=== PATIENT | male | born 1945 | race Caucasian/White ===

== ENCOUNTER 2017-08-26 10:04 | Outpatient (CLI) | payer MEDICARE, OTHER ==
--- OUTSIDE RECORDS SUMMARY | 2017-08-26 10:06 | XMS | Clinical Summary ---
:1945 Author Organization [facility] Address [address] [place] [address] Phone Care Team Providers Name Role Phone Provider, Unknown Primary Care Provider Unavailable Allergies No Known Allergies Current Medications Prescription Sig. Disp. Refills Start Date End Date Status metoprolol succinate XL Take 75 mg by mouth Active (TOPROL-XL) 50 MG 24 hr daily. tablet RITUXIMAB (RITUXAN IV) Infuse into a Active venous catheter every 4 (four) months. dexamethasone (DECADRON) Take 0.75 mg by Active 0.5 MG tablet mouth daily. hydroxychloroquine Take by mouth Active (PLAQUENIL) 200 mg tablet daily. clopidogrel (PLAVIX) 75 Take 75 mg by mouth Active mg tablet daily. irbesartan (AVAPRO) 300 Take 300 mg by Active MG tablet mouth nightly. aspirin (ECOTRIN) 81 MG Take 81 mg by mouth Active enteric coated tablet daily. ranitidine (ZANTAC) 150 Take 150 mg by Active MG tablet mouth 2 (two) times a day. oxybutynin (DITROPAN) 5 Take 5 mg by mouth Active MG tablet daily. folic acid (FOLVITE) 1 MG Take 1 mg by mouth Active tablet daily. multivitamin with Take 1 tablet by Active minerals tablet mouth daily. cholecalciferol, vitamin Take 2,000 Units by Active D3, (VITAMIN D3) 2,000 mouth 2 (two) times unit capsule capsule a day. krill oil 500 mg capsule Take by mouth Active daily. cyanocobalamin 1000 MCG Take 1,000 mcg by Active tablet mouth daily. cholecalciferol, vitamin Take 1,000 Units by Active D3, (VITAMIN D3) 1,000 mouth daily. unit tablet torsemide (DEMADEX) 100 Take 100 mg by Active MG tablet mouth daily. furosemide (LASIX) 40 mg Take 40 mg by mouth Active tablet 3 (three) times a day. potassium chloride Take 10 mEq by Active (KLOR-CON M10) 10 MEQ CR mouth 2 (two) times tablet a day. montelukast (SINGULAIR) Take 10 mg by mouth Active 10 mg tablet nightly. budesonide (PULMICORT) Take 0.5 mg by Active 0.5 mg/2 mL nebulizer nebulization once solution daily. albuterol (PROAIR Inhale 2 puffs Active HFA,PROVENTIL every 6 (six) hours HFA,VENTOLIN HFA) 90 as needed for mcg/actuation inhaler wheezing. Active Problems Problem Noted Date Atrial fibrillation 03/18/2017 Obesity 03/18/2017 Essential hypertension 03/18/2017 COPD (chronic obstructive pulmonary disease) 03/18/2017 Acute on chronic diastolic congestive heart failure 03/18/2017 NILESH (obstructive sleep apnea) 03/18/2017 Coronary artery disease involving [place] coronary artery of [place] heart 03/18 History of coronary artery stent placement 03/18/2017 S/P coronary angiogram 03/18/2017 Chronic kidney disease, stage III (moderate) 03/18/2017 Anemia of chronic disease 03/18/2017 Arterial stent thrombosis Arterial stent thrombosis Family History Medical History Relation Name Comments Emphysema Father Kidney disease Mother Relation Name Status Comments Father Mother Social History Tobacco Use Types Packs/Day Years Used Date Never Smoker Alcohol Use Drinks/Week oz/Week Comments Yes occasional Sex Assigned at Date Recorded Not on file Last Filed Vital Signs Vital Sign Reading Time Taken Blood Pressure 140/76 03/18/2017 2:00 PM CDT Pulse 69 03/18/2017 2:00 PM CDT Temperature - - Respiratory Rate - - Oxygen Saturation - - Inhaled Oxygen Concentration - - Weight 120 kg (264 lb) 03/18/2017 2:00 PM CDT Height 180.3 cm (5' 11") 03/18/2017 2:00 PM CDT Body Mass Index 36.82 03/18/2017 2:00 PM CDT Plan of Treatment Health Maintenance Due Date Last Done Comments COLONOSCOPY 1995 ZOSTER VACCINE 2005 PNEUMOCOCCAL POLYSACCHARIDE VACCINE AGE 65 AND OVER 2010 PNEUMOCOCCAL-13 2010 INFLUENZA VACCINE 06/22/2017 Results Not on filefrom Last 3 Months Insurance Payer Benefit Plan / Group Subscriber ID Type Phone Address MEDICARE MEDICARE PART A AND B [id number] Medicare [place], [place] AETNA AETNA [facility] INDEMNITY [id number] Indemnity [phone] [id number]
--- NOTE | 2017-08-26 12:01 | CT ---
CT OF THE RIGHT LOWER EXTREMITY WITHOUT IV CONTRAST: INDICATION: A 71-year-old male with a history of multiple falls and intense pain in the right hip. COMPARISON: CT of the chest, abdomen, and pelvis dated 04/10/17 from [facility] and an ultrasound of the right hip dated 04/19/17. FINDINGS: There is a large right iliopsoas bursa present anterior to the right hip joint measuring approximate ly 15.5 x 6.5 cm. There is an additional fluid collection overlying the superior and lateral aspect of the right greater measuring 4.8 x 2.2 cm suspicious for enlarged trochanteric bursa. There is p rominent hypertrophy of the adductor musculature of the right proximal thigh suspicious for a large intramuscular hematoma measuring 10.5 x 4.6 cm. This is primarily centered within the adductor magn us. There are prominent vascular calcifications noted involving the femoral arteries. There is a f at-containing right inguinal hernia. No enlarged lymph nodes are evident. There is a right total h ip prosthesis in place. No definite periprosthetic fracture is evident. There is enthesopathic nawaf nge overlying the lateral aspect of the right greater trochanter. There is moderate degenerative ch jorge of the right SI joint. There is partial visualization of a large cyst involving the inferior p ole of the right kidney measuring 7.2 cm. This is better evaluated on the CT evaluation dated . IMPRESSION: 1. Large intramuscular hematoma primarily centered within the right adductor ginny musculature. R ecommend followup to resolution. A followup CT evaluation with contrast in 6-8 weeks is recommended . 2. Prominent right iliopsoas and trochanteric bursitis. 3. No CT evidence for a periprosthetic fracture. The right total hip arthroplasty projects in the expected position. POS: [facility]
== END 2017-08-26 10:05 | disposition home or self-care (01) ==
LOC: CT 10:04
PROVIDERS: ATTEND Orthopaedic Surgery
DX: R22.42 Localized swelling, mass and lump, left lower limb (principal); M25.551 Pain in right hip; S70.01XA Contusion of right hip, initial encounter; M70.61 Trochanteric bursitis, right hip

== ENCOUNTER 2017-09-03 11:33 | Outpatient (CLI) | payer MEDICARE, OTHER ==
--- NOTE | 2017-09-03 17:59 | ULT ---
ULTRASOUND GUIDED RIGHT ILIOPSOAS BURSA ASPIRATION 09/03/17 INDICATION: Right iliopsoas bursitis, right trochanteric bursitis and right medial thigh hematoma. COMPARISON: CT of the right lower extremity dated 08/26/17. TECHNIQUE: Informed consent was obtained. Preprocedure ultrasound demonstrated a prominent right iliopsoas bur tatiana collection. Site overlying the iliopsoas bursa was prepped and draped in the usual sterile fashi on. Buffered 1% lidocaine was administered overlying subcutaneous tissues. Under ultrasound guidance , an 18 gauge spinal needle was guided down into the collection. The initial attempted aspiration pr chon to be unsuccessful. Within the collection, predominantly over the anterior aspect of the right hip, was thick tenacious type fluid that had minimal return. Attention was paid for the collection t hat was slightly closer to the femoral canal that appeared more liquid in form. The 18 gauge spinal needle was guided into this collection and there was return of 20 mL of a cloudy type bursal fluid. Patient tolerated the procedure without difficulty. After the procedure, the patient was complaining of some difficulty in flexing at the hip. The patient had full sensation on the anterior aspect of the hip and was able to extend at the knee utilizing the quad mechanism. The patient likely had a pa rtial block to the right femoral nerve due to the adjacent subcutaneous lidocaine that was administe red. The patient was followed for approximately 1.5 hours in the holding area where the patient had improving strength and hip flexion upon discharge. The aspirate was sent to the Pathology Department for evaluation with gram stain, aerobic and anaerobic cultures. Preprocedure ultrasound was performed of the hematoma suspected within the right adductor musculatur e on the prior CT of the right lower extremity. There was visualization of the prominent hematoma wi thin the right adductor compartment; however, none of it appeared to be liquefied and therefore aspi ration was not performed. A small amount of fluid is seen within the right trochanteric bursa. Major ity of the bursa was filled with synovial hypertrophy. Aspiration was not performed of this bursa. IMPRESSION: 1. Successful right iliopsoas bursal aspiration of 20 mL of cloudy fluid. This was sent to the Pathology Department for evaluation by gram stain, aerobic and anaerobic cultures. 2. Large right intramuscular hematoma within the adductor musculature of the right thigh. This was complex and not significantly liquefied for aspiration. 3. Small amount of fluid was seen within the right trochanteric bursa. POS: [facility]
== END 2017-09-03 11:34 | disposition home or self-care (01) ==
LOC: RAD 11:33
PROVIDERS: ATTEND Orthopaedic Surgery
DX: S80.11XA Contusion of right lower leg, initial encounter (principal)
CPT/HCPCS: 76942; 87070; 87205

== ENCOUNTER 2017-10-21 10:48 | Inpatient (IN) | payer MEDICARE, OTHER ==
[2017-10-21 11:27] LABS: #Basophils 0.1 thou/uL (0.0-0.2); #Eosinphils 0.1 thou/uL (0.0-0.7); #Lymphocytes 0.4 thou/uL (1.20-3.40); #Monocytes 0.7 thou/uL (0.11-0.59); #Neutrophils 7.2 thou/uL (1.40-6.50); %Basophils 1.1 % (0.0-1.0); %Eosinophils 0.9 % (0.0-10.0); %Lymphocytes 4.7 % (21.0-51.0); %Monocytes 7.8 % (0.0-10.0); Hematocrit 34.7 % (42.0-52.0); Mean Platelet Volume 6.1 fL (7.4-10.4); Red Blood Cell (RBC) Count 3.64 mill/uL (4.70-6.10); White Blood Cell (WBC) Count 8.4 thou/uL (4.8-10.8)
[2017-10-21] MEDS ORDERED: Sodium Chloride 0.9% 100 ML ONE (11:31)
[2017-10-21] MEDS ORDERED: Piperacillin/Tazobactam 4.5 GM VIAL ONE (11:31)
[2017-10-21] MEDS ORDERED: Clindamycin/D5W 900 mg/50 ml Premix Bag ONE (11:31)
[2017-10-21 11:40] LABS: ALT (SGPT) 29 U/L (8-55); AST (SGOT) 24 U/L (5-34); Alkaline Phosphatase 74 U/L (40-150); Anion Gap 14 mmol/L (10-20); BUN (Urea Nitrogen) 36 mg/dL (8.4-25.7); Bilirubin, Total 0.7 mg/dL (0.2-1.2); Calc. Creatinine Clearance 0 mL/min (70-130); Calcium 10.8 mg/dL (7.8-10.44); Carbon Dioxide 25 mmol/L (23-31); Chloride 108 mmol/L (98-107); Estimated GFR-MDRD 54; Globulin 2.8 g/dL (2.4-3.5); Protein, Total 6.3 g/dL (5.8-8.1)
[2017-10-21 11:42] LABS: Troponin I 0.098 ng/mL (< 0.028)
--- NOTE | 2017-10-21 12:02 | RAD ---
EXAM: CHEST 2 VIEWS: COMPARISON: 07/01/17. HISTORY: Dyspnea. FINDINGS: Sternotomy wires are identified. There is a right-sided transvenous pacemaker, unchanged in position . Heart is enlarged. The pulmonary vessels are prominent. Patchy interstitial and alveolar opaciti es. Obscuration of the left hemidiaphragm. No pneumothorax. IMPRESSION: Congestive heart failure. POS: [facility]
[2017-10-21] MEDS ORDERED: Furosemide 40 MG/4 ML VIAL ONE (12:20)
[2017-10-21 14:20] LABS: Troponin I 0.073 ng/mL (< 0.028)
[2017-10-21] MEDS ORDERED: Ondansetron HCl/PF 4 MG/2 ML Vial IVP PRN (15:48)
[2017-10-21] MEDS ORDERED: Ondansetron ODT 4 MG TAB PO PRN (15:48)
[2017-10-21] MEDS ORDERED: Bisacodyl 5 MG TAB PO PRN (15:48)
[2017-10-21] MEDS: Piperacillin/Tazobactam 3.375 GM in Sodium Chloride 0.9% 100 ML IVPB SCH (18:03)
--- NOTE | 2017-10-21 18:14 | RAD ---
FIFTH FINGER LEFT HAND THREE VIEWS: History: Laceration and cellulitis. FINDINGS: There is a fracture involving the distal aspect of the proximal phalanx along its radial surface. A s mall chip fracture is seen at the distal corner at the PIP joint. There is soft tissue swelling surro unding this PIP joint. IMPRESSION: Fracture involving the distal aspect of the proximal phalanx of the fifth finger. POS: [facility]
--- NOTE | 2017-10-21 18:16 | RAD ---
LEFT HAND THREE VIEWS: History: Cellulitis and injury to left fifth finger. FINDINGS: Fracture involving the distal aspect of the proximal phalanx of the fifth finger is seen and is descr ibed on dedicated images of the fifth finger. Soft tissue swelling surrounding the joint. Degenerative change of the first carpal metacarpal with subluxation of the first metacarpal at this j oint. There is narrowing of the MCP joints. Cystic changes are seen in the heads of the third and fifth met acarpals. There is deformity of the first metacarpal suggesting old injury. No other fractures seen. IMPRESSION: Fracture of the proximal phalanx of the fifth finger as previously described on films of the fifth fi nger. POS: [facility]
[2017-10-21] MEDS ORDERED: VANCOMYCIN IVPB PRN (18:35)
[2017-10-21] MEDS ORDERED: Furosemide 40 MG/4 ML VIAL SLOW IVP SCH (20:15)
[2017-10-21] MEDS ORDERED: Potassium Chloride 20 MEQ TAB PO SCH (20:15)
[2017-10-21] MEDS ORDERED: Famotidine 20 MG TAB PO SCH (21:00)
[2017-10-21] MEDS: Docusate 100 MG CAP PO SCH (21:01)
[2017-10-21] MEDS: Acetaminophen 325 MG TAB PO PRN (21:01)
--- NOTE | 2017-10-21 21:05 | CON ---
DATE OF CONSULTATION: 10/21/2017 REASON FOR CONSULTATION: Congestive heart failure. Patient of Dr. Alcides Simmons. [facility] TECHNICIAN: Dr. Simmons. HISTORY OF PRESENT ILLNESS: Mr. Ocampo is a delightful 71-year-old gentleman. The patient states he is having increasing difficulty breathing. He states the last night he could not hardly sleep at all because he could not breathe when he tried to lie down. He finally came to the emergency room an d has been found to be in congestive heart failure. He is not having chest pain or pressure. He has got some diuretic therapy, feeling better, but still short of breath. PAST MEDICAL HISTORY: 1. History of a depressed left ventricular function, systolic heart failure. 2. History of coronary artery disease with successful stent implantation by Dr. Simmons this June. MEDICATIONS PRIOR TO ADMISSION: He was taking; 1. Rituxan. 2. Metoprolol. 3. Furosemide. 4. Clopidogrel. 5. Diltiazem. 6. Aspirin. 7. Potassium. ALLERGIES: MORPHINE. REVIEW OF SYSTEMS: Constitutional: Positive for weakness and fatigue. Vision: No changes. Hearin g: No changes. Pulmonary: Positive for shortness of breath. Cardiac: Positive for shortness of b reath. No chest pain. Gastrointestinal: No nausea, vomiting, diarrhea. Skin: No rashes. Neurolo gic: No unilateral weakness or numbness. Psychiatric: No unusual depression or anxiety. Hematolog ic: No unusual bruising. Genitourinary: No burning with urination. Musculoskeletal: He does have some joint inflammation and infection in one of the digits in the left hand. PHYSICAL EXAMINATION: GENERAL: This is a pleasant elderly gentleman, in no distress. VITAL SIGNS: Blood pressure 145/67, pulse 104, it is irregular. HEENT: Eyes: Sclerae nonicteric. Mouth mucous membranes are moist. NECK: Supple. No lymphadenopathy. LUNGS: Clear anteriorly and laterally. CARDIAC: Irregularly irregular. No murmur, rub or gallop. ABDOMEN: Soft, nontender. EXTREMITIES: No clubbing or cyanosis. There is moderate edema. PERTINENT LABORATORY DATA: The troponin level 0.098, probably demand ischemia. BNP 2723, creatinine is 1.31. ASSESSMENT: 1. Congestive heart failure. Looking at the notes, it appears that this was primarily diastolic hea rt failure. The ejection fraction was noted to be 50% to 55% in 2015. 2. Underlying coronary artery disease. 3. Chronic atrial fibrillation. 4. Volume overloaded. PLAN: 1. Continue to diurese. 2. Consideration possibly reduce calcium blockers with heart failure. 3. The patient also has a dual chamber pacemaker in place. 4. ? anticoagulation. Dr. Simmons to resume patient's care tomorrow. Presently, the patient is on l ow dose enoxaparin, need to consider whether he needs to be fully anticoagulated.
[2017-10-22] MEDS: Piperacillin/Tazobactam 3.375 GM in Sodium Chloride 0.9% 100 ML IVPB SCH ×5 (00:27→23:46)
[2017-10-22] MEDS ORDERED: Vancomycin HCl 1 GM in Premix Bag 1 BAG IVPB SCH (01:00)
[2017-10-22 05:32] LABS: #Eosinphils 0.1 thou/uL (0.0-0.7); #Lymphocytes 0.5 thou/uL (1.20-3.40); #Monocytes 0.4 thou/uL (0.11-0.59); #Neutrophils 3.8 thou/uL (1.40-6.50); %Eosinophils 1.8 % (0.0-10.0); %Lymphocytes 10.9 % (21.0-51.0); %Monocytes 8.1 % (0.0-10.0); Hematocrit 33.2 % (42.0-52.0); Red Blood Cell (RBC) Count 3.38 mill/uL (4.70-6.10); White Blood Cell (WBC) Count 4.8 thou/uL (4.8-10.8)
--- NOTE | 2017-10-22 05:59 | HP ---
PRIMARY CARE PHYSICIAN: Montse Serrato M.D. CHIEF COMPLAINT: Left hand infection and shortness of breath. HISTORY OF PRESENT ILLNESS: This is a 71-year-old white male with a known history of congestive hear t failure as well as rheumatoid arthritis on chronic immunosuppressives. He cut himself with a kitch en knife 6 weeks ago, since then he has had increasing pain and swelling in the finger and hand where he cut himself. He cut himself on the inside aspect of the left pinky in the mid finger. He has vora d some drainage of pus starting in the last few days, but has had swelling and redness of the lateral side of the hand for the last few weeks. He went to see his chief client officer some time ago and then t hought he was having a gout attack and put him on some medications. He went to follow back up today and when they saw the pus draining from the knife cut, they sent him over to the emergency room. Melania miller reports that he has a lot of pain with movement of his wrist and of his fingers, but has not los t any sensation, no numbness, no tingling. He has had some mild redness not significantly warm thoug h he had no systemic fever or other systemic symptoms from it. Patient has reported increased shortn ess of breath for the last 5 weeks. This is in spite of him say that he is sticking with his fluid a nd salt restrictions and going routinely to the [facility] and getting his diuretics titrat ed up. He has not noticed any cough, just unable to catch his breath or taking deep breaths. Patien micheal was seen in the emergency room, was noted to have a cellulitis on his left hand, possibly extending up into his arm that was real light and red and he has some senile dermatitis on his arm, which make s it difficult to tell. He did have some pus draining from the wound and that was cultured in the em ergency room. He had no leukocytosis or fever. He was given Zosyn, vancomycin, and clindamycin in [facility] and transferred over here. In the ER, he was also noted to have some crackles in h is bases. He had congestive heart failure on his chest x-ray and his BNP is markedly elevated above from previous exacerbations now in the 1999. He does have chronic renal insufficiency. However, his creatinine is a lot better than it has been from her recent visits. Earlier this month it was 3, no w it is 1.3. Patient did have an indeterminate troponin of 0.098. He also has indeterminate troponi ns consists his renal function, though this is higher than it has been in the recent past. PAST MEDICAL HISTORY: 1. Chronic systolic heart failure. 2. Chronic kidney disease stage 3. 3. Hypertension. 4. Rheumatoid arthritis. 5. Coronary artery disease. 6. Gastroesophageal reflux disease. PAST SURGICAL HISTORY: 1. Pacemaker placement. 2. CABG. 3. Cardiac catheterization with stents. ALLERGIES: MORPHINE causes him to become confused and loopy. CURRENT MEDICATIONS: 1. Cardizem-CD 180 mg 2 times a day. 2. Clopidogrel 75 mg daily. 3. Dexamethasone 0.75 mg daily. 4. Folic acid 0.8 mg 2 times a day. 5. Hydroxychloroquine 200 mg daily. 6. Metoprolol tartrate 100 mg daily. 7. Brovana nebulizer 2 times a day. 8. Torsemide, he believes that he is currently on 60 mg daily. 9. Furosemide, he is not certain if he is still on this one as these have been changed around by the [facility]. 10. Zaroxolyn 5 mg daily. 11. Protonix 40 mg daily. 12. Potassium chloride 10 mEq twice a day. 13. Aspirin 81 mg daily. 14. Budesonide nebulized uncertain how often he takes this. REVIEW OF SYSTEMS: Constitutional: No fevers or chills, no weight changes. Eyes: No double vision or blurred vision. ENT: No congestion, drainage or sore throat. Cardiovascular: No chest pain, n o palpitations or racing heart. Pulmonary: See HPI. Gastrointestinal: No abdominal pain, no nause a, vomiting, no diarrhea, or constipation. Genitourinary: No dysuria or hematuria. Musculoskeletal : He has some arthralgias from his rheumatoid arthritis that does not flare currently. See HPI for the issues with his left wrist and hand. Skin: See HPI. Neurologic: No numbness, tingling, or foc al weakness. PHYSICAL EXAMINATION: VITAL SIGNS: Blood pressure 145/67, pulse 104, respirations 22, O2 sat 98% on 2 liters, temperature 97.8. GENERAL: This is a well-developed, obese white male in no apparent distress. HEENT: Pupils are equal, round, and reactive to light. Oropharynx is clear without lesions, erythem a or exudate. NECK: Supple, no lymphadenopathy, no thyroid nodules or enlargement. He does have some JVD. HEART: Regular rate and rhythm, no murmurs. LUNGS: He does have bibasilar crackles and some decreased air movement into the bases. No wheezing. ABDOMEN: Soft, obese, nontender to palpation, normoactive bowel sounds. No hepatosplenomegaly or ot her masses. EXTREMITIES: No clubbing or cyanosis. He does have some edema of his ulnar side of his left hand in cluding the pinky finger, the ulnar side of the hand, and the ulnar side of the wrist. He does have some mild erythema of the proximal half of the pinky finger and some down to the hand. The ER doctor had noted the possibility of some of that running up his arm and not seen in the arm currently. Thi s seems to stop at the wrist. He does have significant tenderness to palpation at the ulnar side of the wrist in the third and fourth metatarsals and the pinky finger up to the side of the cut. The cu t is half way up the finger, is not deep. Does have some minimal amount of pus draining out of it. No surrounding or erythema, a little bit of warmth. Patient does have intact movement of all his mirna nts, but this pain with movement. He has intact distal cap refill, intact pulses, intact sensation. SKIN: See extremity exam above. No other rashes noted. NEUROLOGIC: Cranial nerves are intact and equal bilaterally. No facial droop. Deep tendon reflexes 2+ in all extremities. He has good strength in all extremities. PSYCHIATRIC: Alert and oriented x3, normal mood and affect, normal insight and judgment. LABORATORY DATA: CBC with a white blood cell count of 8.4, hemoglobin 10.6, hematocrit 34.7, platele ts 192. Complete metabolic panel was notable only for a chloride of 108, BUN is 36, creatinine of 1. 31, calcium of 10.8, the rest is normal. Troponin was 0.098, changed to 0.073 on the 2nd check. CK- MB is negative. Brain natriuretic peptide is 2723. Looking at previous visits, often he is in the m id to high 1000s when he is exacerbated. He was exacerbated with a similar elevation back in April of this year, where he went up to 2500. IMAGING: X-ray: I did review the chest x-ray in the emergency room along with the radiologist's rep ort. The patient does have the sternotomy wires and the right-sided transvenous pacemaker. He has a n enlarged heart and prominent pulmonary vessels. There are patchy interstitial alveolar opacity is c onsistent with congestive failure. ASSESSMENT AND PLAN: 1. Acute exacerbation of systolic congestive heart failure. We will put patient on Lasix IV 60 twic e a day. We will consult Cardiology, Dr. Simmons as this patient's primary event specialist. Dr. Antonio is pulmonary function technician. We will restart as the patient's on some potassium as well the prevented drop with the i ncreased Lasix dose. Fluid and salt restrictions. We will order an echocardiogram as well during e hospitalization as I did not see one from the previous 1 year. 2. Cellulitis infection of the left pinky and hands. The patient does have some pain with movement. He does not have any obviously hot joints and the cellulitis is not impressively severe, it is sign ificant since it is on his hand and he is on immunosuppressive for his rheumatoid arthritis and also with the length of illness and has concerned about the possibly of significant progression. We have started IV antibiotics. Cultures have been drawn. We will go ahead and get an ESR and an x-ray of t he hand and finger to make certain. There is no evidence of osteomyelitis, it appears that we should be able to get on top of this without any surgical intervention at this time. Should he get worse, then we can always involve hand surgery. 3. Indeterminate troponins. This is likely due to his congestive failure exacerbation. He does not have any chest pain at this time. 4. Obstructive sleep apnea. 5. Hypertension. Resume home medications. 6. Gastrointestinal prophylaxis. Resume patient's Protonix. 7. Deep venous thrombosis prophylaxis. We will put the patient on sequential compression devices an d YANNICK while in bed and give him Lovenox subcutaneous low dose. CODE STATUS: Patient is a FULL CODE. Should he be incapacitated, he states that his would be h is medical decision maker, her name is Gayla Lee.
[2017-10-22 06:12] LABS: Anion Gap 10 mmol/L (10-20); BUN (Urea Nitrogen) 33 mg/dL (8.4-25.7); Calc. Creatinine Clearance 95 mL/min (70-130); Calcium 10.5 mg/dL (7.8-10.44); Carbon Dioxide 28 mmol/L (23-31); Chloride 108 mmol/L (98-107); Estimated GFR-MDRD 63
[2017-10-22] MEDS: Furosemide 100 MG/10 ML VIAL SLOW IVP SCH ×2 (06:40→13:42)
[2017-10-22] MEDS: Potassium Chloride 10 MEQ TAB PO SCH (08:47)
[2017-10-22] MEDS: Enoxaparin Sodium 30 MG/0.3 ML SYRINGE SC SCH (08:47)
[2017-10-22] MEDS: Docusate 100 MG CAP PO SCH ×2 (08:47→20:30)
[2017-10-22] MEDS ORDERED: Enoxaparin Sodium 40 MG/0.4 ML SYRINGE SC SCH (09:00)
[2017-10-22] MEDS: Acetaminophen 325 MG TAB PO PRN (10:31)
[2017-10-22] MEDS: traMADol HCl 50 MG TAB PO PRN ×2 (13:41→20:32)
--- NOTE | 2017-10-22 13:41 | PDOC.CTH ---
Cardiology Progress Note - Subjective He is doing well. He is getting IV abx for his finger. He is still SOB with lying flat. He has been like this for some weeks now. - Objective Vital Signs Temp Pulse Pulse Pulse Resp BP BP 10/22/17 11:42 97.8 F 77 20 10/22/17 08:09 98 115 H 142/62 H 128/62 10/22/17 08:00 97.8 F 113 H 18 10/22/17 07:59 97.8 F 113 H 18 10/22/17 04:00 97.3 F L 93 20 BP Pulse Ox Pulse Ox Pulse Ox 10/22/17 11:42 127/58 L 98 10/22/17 08:09 96 96 10/22/17 08:00 98 10/22/17 07:59 164/71 H 98 10/22/17 04:00 147/65 H 97 Admit Weight 245 lb 9.6 oz Weight 245 lb 9.6 oz 10/21/17 10/22/17 10/23/17 06:59 06:59 06:59 Intake Total 700 Output Total 2425 Balance -1725 - Physical Examination General/Neuro: alert & oriented x3, NAD Neck: no JVD present Lungs: CTA, unlabored respirations Heart: RRR Abdomen: NT/ND Extremities: + edema B (1+) - Telemetry Telemetry Rhythm: NSR - Labs Result Diagrams: 10/22/17 05:03 10/22/17 05:03 Troponin/CKMB CK-MB (CK-2) 0.9 ng/mL (0-6.6) 10/21/17 11:00 Troponin I 0.073 ng/mL (< 0.028) H 10/21/17 14:00 - Assessment/Plan 1. Acute on chronic systolic and diastolic heart failure 2. Finger cellulitis. 3. CAD, stable 4. Rheumatoid arthritis, on Rituxamab PLAN: - Continue IV diuresis. - Will repeat echocardiogram to make sure his LV function is stable.
[2017-10-22] MEDS: Vancomycin HCl 1.5 GM in Sodium Chloride 0.9% 250 ML 300 ML IVPB SCH (13:42)
--- NOTE | 2017-10-22 13:47 | CON ---
DATE OF CONSULTATION: 10/22/2017 REASON FOR CONSULTATION: Left fifth finger infection. HISTORY OF PRESENT ILLNESS: A 71-year-old has a history of longstanding rheumatoid arthritis, who is currently on some immunomodulator given by infusion every few weeks, probably a TNF inhibitor or kailey kocyte adhesion molecule inhibitor as well as low-dose Decadron and coronary artery disease, who sust ained a laceration to the left hand about 6 weeks prior to this visit while he was preparing some chi cken. The chicken had been cooked already and actually deep fried. Following the event, he noticed some drainage of purulent exudate a few days after that, swelling and redness, saw his security strategist and the initial concern was that with the possibility of gout and he was given some medication, but purulent exudate continued associated with quite a bit of pain and the pain is present in the wrist a nd 5th digit. No fever or chills. Some dyspnea. No headaches, no sore throat, odynophagia, or dysp hagia. No respiratory symptoms. No abdominal pain. The patient came to the emergency room and was admitted with possibility of cellulitis in the left fifth finger. The patient has been started on br oad spectrum coverage. REVIEW OF SYSTEMS: A 10-point review of systems is as above. There are no neurological symptoms in addition to it. No diarrhea, no bleeding, no genitourinary symptoms. PAST MEDICAL HISTORY: Rheumatoid arthritis, hypertension, osteoarthritis, renal insufficiency, venou s stasis, coronary artery disease with bypass graft surgery, post-bypass sternotomy site infection, C OPD, and hyperlipidemia. The medical history in addition shows GERD. PAST SURGICAL HISTORY: Includes pacemaker placement about 2-1/2 years ago, bypass graft surgery, car diac catheterization. ALLERGIES: MORPHINE with mostly not true allergic reaction, but confusional state. CURRENT MEDICATIONS: Tylenol, DuoNeb, Dulcolax, Colace, Lovenox, Lasix, Zofran, Protonix, Zosyn, and vancomycin. SOCIAL HISTORY: Former smoker. FAMILY HISTORY: COPD and asthma. PHYSICAL EXAMINATION: VITAL SIGNS: T-max 97.8, blood pressure 127/58, pulse 77, respirations 20, O2 sat 98%. SKIN: Shows the left fifth finger with marked swelling and erythema in a circumferential distributio n with concentration around the proximal phalanx. The left wrist is swollen, but not erythematous, a ppears soft. Range of motion is pretty good actually. There is one area in the dorsal aspect of the left finger which demonstrates what possible early pustule formation. Peripheral IV access. No Fole y catheter. HEENT: Ocular movements are conjugate. Oral cavity with numerous teeth with some decay. NECK: Supple, no jugular venous distention, no carotid bruits. LUNGS: Symmetric, clear breath sounds. HEART: S1, S2, regular rate. No S3 or S4. ABDOMEN: Soft. Not distended. No ascites. No bladder distention. EXTREMITIES: The lower extremity with no joint inflammatory process. The patient has 1+ edema in th e lower extremities. Pulses are 1+ in dorsalis pedis. He is able to move extremities with some limi tations. NEUROLOGIC: Cognitive function appears to be intact. LABORATORY DATA: White cell count 8.4 and 4.8, hemoglobin 10.6, platelets 161, 79% neutrophils. Sod ium 142, creatinine is down from 1.31-1.14, glucose 92, calcium 10.8. Troponin 0.098, albumin 3.5. He has had finger x-ray which demonstrates fracture involving the distal aspect of the proximal phala nx, small chip fracture seen in the distal corner of the PIP joint and soft tissue swelling surroundi ng this area. There is a hand x-ray as well which shows fracture noted above. MICROBIOLOGY: Finger culture with Staphylococcus aureus. Blood cultures negative thus far. Suscept ibility of the organism is pending at this time. ASSESSMENT: 1. Rheumatoid arthritis, on likely TNF inhibitor or leukocyte adhesion molecule or similar immunomod ulator product treatment and low dose Decadron. 2. Inflammatory process of left fifth finger with likely Staphylococcus aureus which could be methic illin-resistant staphylococcus aureus participation. DISCUSSION: Ideally, one would like to determine further the nature of the process with an MRI or ikndra ne scan, but bone scan would not be helpful since patient already has proven fracture in the area; th erefore, the bone scan will necessarily be positive due to the fracture. The MRI cannot be done sinc e his type of pacemaker device is not the one that would be amenable to an MRI scanning. Those have been made available by [employer] and [employer] for the past 12 months or so. In this regard, we will assume the worst and we will treat him for a protracted period of time hopefully either with Rocephin or vancomycin or daptomycin assuming the osteomyelitis of the area of involvement.
--- NOTE | 2017-10-22 17:38 | PDOC.PN ---
- Subjective Encounter Start Date: 10/22/17 Encounter Start Time: 17:36 Patient seen and examined. No new complaints. No overnight events - Objective Resuscitation Status: Resuscitation Status FULL:Full Resuscitation MAR Reviewed: Yes Vital Signs & Weight: Vital Signs (12 hours) Temp Pulse Pulse Pulse Resp BP BP 10/22/17 16:57 98.0 F 117 H 16 10/22/17 11:55 123 H 102 H 124/68 127/58 L 10/22/17 11:42 97.8 F 77 20 10/22/17 10:52 98 110 H 122/57 L 138/60 10/22/17 08:09 98 115 H 142/62 H 128/62 10/22/17 08:00 97.8 F 113 H 18 10/22/17 07:59 97.8 F 113 H 18 BP Pulse Ox Pulse Ox Pulse Ox 10/22/17 16:57 122/89 97 10/22/17 11:55 97 98 10/22/17 11:42 127/58 L 98 10/22/17 10:52 96 96 10/22/17 08:09 96 96 10/22/17 08:00 98 10/22/17 07:59 164/71 H 98 Weight Admit Weight 250 lb 1.6 oz Weight 245 lb 9.6 oz I&O: 10/21/17 10/22/17 10/23/17 06:59 06:59 06:59 Intake Total 700 Output Total 2425 Balance -1725 Result Diagrams: 10/22/17 05:03 10/22/17 05:03 Phys Exam - Physical Examination Constitutional: NAD HEENT: PERRLA Neck: no JVD Respiratory: no wheezing bibasilar rales Cardiovascular: RRR Gastrointestinal: non-tender Musculoskeletal: no edema Neurological: normal sensation Psychiatric: A&O x 3 Dx/Plan (1) Cellulitis and abscess of hand Code(s): L03.119 - CELLULITIS OF UNSPECIFIED PART OF LIMB; L02.519 - CUTANEOUS ABSCESS OF UNSPECIFIED HAND Status: Acute (2) Fracture of finger of left hand Code(s): S62.609A - FRACTURE OF UNSP PHALANX OF UNSP FINGER, INIT FOR CLOS FX Status: Acute Comment: f/u ortho plan (3) Acute and chronic respiratory failure Code(s): J96.20 - ACUTE AND CHR RESP FAILURE, UNSP W HYPOXIA OR HYPERCAPNIA Status: Acute (4) Acute on chronic combined systolic and diastolic ACC/AHA stage C congestive heart failure Code(s): I50.43 - ACUTE ON CHRONIC COMBINED SYSTOLIC AND DIASTOLIC HRT FAIL Status: Acute (5) Acute on chronic renal failure Code(s): N17.9 - ACUTE KIDNEY FAILURE, UNSPECIFIED; N18.9 - CHRONIC KIDNEY DISEASE, UNSPECIFIED Status: Acute (6) Pacemaker Code(s): Z95.0 - PRESENCE OF CARDIAC PACEMAKER Status: Acute Comment: for sss (7) Rheumatoid arthritis Code(s): M06.9 - RHEUMATOID ARTHRITIS, UNSPECIFIED Status: Chronic Qualifiers: - Plan * 1. Acute on chronic systolic and diastolic heart failure 2. Finger cellulitis. - f/u dr harris plan 3. CAD, stable 4. Rheumatoid arthritis, on Rituxamab PLAN: - Continue IV diuresis. - Will repeat echocardiogram to make sure his LV function is stable. - continue abx
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
[2017-10-23] MEDS: HYDROcodone/Acetaminophen 10/325 mg Tablet PO PRN ×4 (01:22→20:43)
[2017-10-23] MEDS: traMADol HCl 50 MG TAB PO PRN (04:30)
[2017-10-23 04:54] LABS: #Eosinphils 0.2 thou/uL (0.0-0.7); #Lymphocytes 0.8 thou/uL (1.20-3.40); #Monocytes 0.6 thou/uL (0.11-0.59); #Neutrophils 4.1 thou/uL (1.40-6.50); %Basophils 0.2 % (0.0-1.0); %Eosinophils 3.1 % (0.0-10.0); %Lymphocytes 14.6 % (21.0-51.0); %Monocytes 10.8 % (0.0-10.0); Hematocrit 34.7 % (42.0-52.0); Mean Platelet Volume 7.2 fL (7.4-10.4); Red Blood Cell (RBC) Count 3.54 mill/uL (4.70-6.10); White Blood Cell (WBC) Count 5.7 thou/uL (4.8-10.8)
[2017-10-23 05:07] LABS: Anion Gap 10 mmol/L (10-20); BUN (Urea Nitrogen) 37 mg/dL (8.4-25.7); Calc. Creatinine Clearance 73 mL/min (70-130); Calcium 10.3 mg/dL (7.8-10.44); Carbon Dioxide 31 mmol/L (23-31); Chloride 105 mmol/L (98-107); Estimated GFR-MDRD 48
[2017-10-23] MEDS: Piperacillin/Tazobactam 3.375 GM in Sodium Chloride 0.9% 100 ML IVPB SCH ×4 (06:03→23:53)
[2017-10-23] MEDS: Furosemide 100 MG/10 ML VIAL SLOW IVP SCH ×2 (06:04→13:27)
[2017-10-23] MEDS: Enoxaparin Sodium 30 MG/0.3 ML SYRINGE SC SCH (08:53)
[2017-10-23] MEDS: Potassium Chloride 10 MEQ TAB PO SCH (08:53)
[2017-10-23] MEDS: Docusate 100 MG CAP PO SCH ×2 (08:53→20:43)
[2017-10-23 12:37] LABS: Vancomycin, Trough 9.9 ug/mL
[2017-10-23] MEDS: Vancomycin HCl 1.5 GM in Sodium Chloride 0.9% 250 ML 300 ML IVPB SCH (13:28)
[2017-10-23] MEDS ORDERED: Vancomycin HCl 500 MG in Sodium Chloride 0.9% 100 ML IVPB SCH (14:15)
--- NOTE | 2017-10-23 14:23 | CT ---
CT OF LEFT HAND PERFORMED WITH CONTRAST ENHANCEMENT: HISTORY: Left hand cellulitis. History of right little finger fracture. COMPARISON: Recent plain film examination. The fracture involving the distal aspect of the proximal phalanx of the little finger actually appear s to be a pathologic fracture related to a cyst in this region which is at a fracture through the cor jaymie. There are other bony cysts seen within the carpal bones distal radius and some prominent change s of the first metacarpal with cortical thinning involving the cyst involving the base of the first m etacarpal and there is actually a pathologic fracture with cortical breakthrough also associated with this. There are marked tenosynovitis-type changes. There is extensive low-attenuation density associated w ith the carpal tunnel region and extending into the flexor tendons of all the fingers. There is no a ir seen associated with this. Bone demineralization appears fairly normal. There are some calcifications such as some calcifications associated with the triangular fibrocartila ge noted. IMPRESSION: 1. Extensive fluid seen within the carpal tunnel and flexor tendon sheath s suggesting a tenosynovit is. In addition, to these findings, there are multiple cysts noted within the bones, particularly th e carpal bones. One of these cysts is associated with a pathologic fracture of the distal aspect of the proximal phalanx of the little finger and there is subtle pathologic fracture which has developed associated with one of the cysts at the base of the first metacarpal. Although these changes are no t entirely typical, I think this constellation of findings would raise the possibility of gout as an underlying etiology. Rheumatoid would be another consideration. Gout is associated with an exudativ e tenosynovitis. I cannot exclude these changes being as an infectious etiology but would consider i nflammatory arthritis as another possibility with gout, pseudogout, and rheumatoid in that considerat ion. There is not the typical bony demineralization or other changes that would typically be seen wi th rheumatoid. The findings were discussed with Dr. Moser. POS: [facility]
--- NOTE | 2017-10-23 14:45 | PDOC.PN ---
- Subjective Encounter Start Date: 10/23/17 Encounter Start Time: 14:43 Patient seen and examined. No new complaints. No overnight events - Objective Resuscitation Status: Resuscitation Status FULL:Full Resuscitation MAR Reviewed: Yes Vital Signs & Weight: Vital Signs (12 hours) Temp Pulse Resp BP Pulse Ox 10/23/17 12:00 97.6 F 110 H 16 158/71 H 94 L 10/23/17 08:00 98.6 F 99 18 140/74 91 L 10/23/17 04:00 98.0 F 96 20 158/69 H 93 L 10/23/17 03:00 97 Weight Admit Weight 250 lb 1.6 oz Weight 242 lb 1.6 oz I&O: 10/22/17 10/23/17 10/24/17 06:59 06:59 06:59 Intake Total 700 1610 Output Total 2428 4955 Balance -1724 Result Diagrams: 10/23/17 04:38 10/23/17 04:38 Phys Exam - Physical Examination Constitutional: NAD HEENT: PERRLA Neck: no JVD Respiratory: no wheezing some bibasilar rales Cardiovascular: no significant murmur Gastrointestinal: non-tender Musculoskeletal: pulses present left pinky in dressing Neurological: moves all 4 limbs Psychiatric: A&O x 3 Dx/Plan (1) Cellulitis and abscess of hand Code(s): L03.119 - CELLULITIS OF UNSPECIFIED PART OF LIMB; L02.519 - CUTANEOUS ABSCESS OF UNSPECIFIED HAND Status: Acute (2) Fracture of finger of left hand Code(s): S62.609A - FRACTURE OF UNSP PHALANX OF UNSP FINGER, INIT FOR CLOS FX Status: Acute Comment: f/u ortho plan (3) Acute and chronic respiratory failure Code(s): J96.20 - ACUTE AND CHR RESP FAILURE, UNSP W HYPOXIA OR HYPERCAPNIA Status: Acute (4) Acute on chronic combined systolic and diastolic ACC/AHA stage C congestive heart failure Code(s): I50.43 - ACUTE ON CHRONIC COMBINED SYSTOLIC AND DIASTOLIC HRT FAIL Status: Acute (5) Acute on chronic renal failure Code(s): N17.9 - ACUTE KIDNEY FAILURE, UNSPECIFIED; N18.9 - CHRONIC KIDNEY DISEASE, UNSPECIFIED Status: Acute (6) Pacemaker Code(s): Z95.0 - PRESENCE OF CARDIAC PACEMAKER Status: Acute Comment: for sss (7) Rheumatoid arthritis Code(s): M06.9 - RHEUMATOID ARTHRITIS, UNSPECIFIED Status: Chronic Qualifiers: - Plan * * 1. Acute on chronic systolic and diastolic heart failure 2. Finger cellulitis. - f/u dr harris plan 3. CAD, stable 4. Rheumatoid arthritis, on Rituxamab PLAN: - Continue IV diuresis. - Will repeat echocardiogram to make sure his LV function is stable. - continue abx
[2017-10-23] MEDS: Sodium Chloride 0.9% 1,000 ML IV SCH (23:53)
[2017-10-24] MEDS: traMADol HCl 50 MG TAB PO PRN ×3 (00:04→22:40)
[2017-10-24 05:28] LABS: Anion Gap 13 mmol/L (10-20); BUN (Urea Nitrogen) 36 mg/dL (8.4-25.7); Calc. Creatinine Clearance 64 mL/min (70-130); Calcium 10.2 mg/dL (7.8-10.44); Carbon Dioxide 28 mmol/L (23-31); Chloride 104 mmol/L (98-107); Estimated GFR-MDRD 41
[2017-10-24] MEDS: Furosemide 100 MG/10 ML VIAL SLOW IVP SCH ×2 (05:31→13:45)
[2017-10-24] MEDS: Piperacillin/Tazobactam 3.375 GM in Sodium Chloride 0.9% 100 ML IVPB SCH ×2 (05:31→11:53)
[2017-10-24] MEDS ORDERED: Midazolam HCl 2 mg/2 ml Vial ONE (07:15)
[2017-10-24] MEDS ORDERED: Fentanyl 100 MCG/2 ML VIAL ONE (07:15)
[2017-10-24] MEDS ORDERED: Promethazine HCl 25 MG/ML VIAL IM PRN (10:03)
[2017-10-24] MEDS ORDERED: Promethazine HCl 25 MG/ML VIAL SLOW IVP PRN (10:03)
[2017-10-24] MEDS ORDERED: Ondansetron HCl/PF 4 MG/2 ML Vial IVP PRN (10:03)
[2017-10-24] MEDS: Potassium Chloride 10 MEQ TAB PO SCH (10:42)
[2017-10-24] MEDS: Docusate 100 MG CAP PO SCH ×2 (10:42→21:17)
[2017-10-24] MEDS: Enoxaparin Sodium 30 MG/0.3 ML SYRINGE SC SCH (10:43)
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
[2017-10-24] MEDS: HYDROcodone/Acetaminophen 10/325 mg Tablet PO PRN ×2 (15:17→19:37)
--- NOTE | 2017-10-24 15:19 | PDOC.PN ---
- Subjective Encounter Start Date: 10/24/17 Encounter Start Time: 15:17 pt had surg by dr mabry yesterday for tenosynovitis no f/c no n/v diurising well - Objective Resuscitation Status: Resuscitation Status FULL:Full Resuscitation MAR Reviewed: Yes Vital Signs & Weight: Vital Signs (12 hours) Temp Pulse Resp BP Pulse Ox 10/24/17 11:39 98.3 F 98 20 140/65 96 10/24/17 08:00 98.3 F 99 18 110/56 L 95 10/24/17 04:00 97.9 F 100 20 133/58 L 93 L Weight Admit Weight 250 lb 1.6 oz Weight 238 lb 8 oz I&O: 10/23/17 10/24/17 10/25/17 06:59 06:59 06:59 Intake Total 1610 1726 Output Total 3585 2855 Balance -1974 Result Diagrams: 10/23/17 04:38 10/24/17 04:53 Phys Exam - Physical Examination Constitutional: NAD HEENT: PERRLA Neck: no JVD some bibasilar rales Cardiovascular: RRR Gastrointestinal: non-tender lt hand in dressing, b/l pedal edema improving Neurological: moves all 4 limbs Psychiatric: A&O x 3 Dx/Plan (1) Cellulitis and abscess of hand Code(s): L03.119 - CELLULITIS OF UNSPECIFIED PART OF LIMB; L02.519 - CUTANEOUS ABSCESS OF UNSPECIFIED HAND Status: Acute (2) Fracture of finger of left hand Code(s): S62.609A - FRACTURE OF UNSP PHALANX OF UNSP FINGER, INIT FOR CLOS FX Status: Acute Comment: f/u ortho plan (3) Acute and chronic respiratory failure Code(s): J96.20 - ACUTE AND CHR RESP FAILURE, UNSP W HYPOXIA OR HYPERCAPNIA Status: Acute (4) Acute on chronic combined systolic and diastolic ACC/AHA stage C congestive heart failure Code(s): I50.43 - ACUTE ON CHRONIC COMBINED SYSTOLIC AND DIASTOLIC HRT FAIL Status: Acute (5) Acute on chronic renal failure Code(s): N17.9 - ACUTE KIDNEY FAILURE, UNSPECIFIED; N18.9 - CHRONIC KIDNEY DISEASE, UNSPECIFIED Status: Acute (6) Pacemaker Code(s): Z95.0 - PRESENCE OF CARDIAC PACEMAKER Status: Acute Comment: for sss (7) Rheumatoid arthritis Code(s): M06.9 - RHEUMATOID ARTHRITIS, UNSPECIFIED Status: Chronic Qualifiers: - Plan * f/u dr harris rec's for abx * case mx to help with placement and arranging out pt abx * diuresis per cardilogy * ortho input appreciated
[2017-10-24] MEDS ORDERED: Propofol 200 MG/20 ML VIAL ONE (15:37)
[2017-10-24] MEDS: cefTRIAXone\\ROCEPHIN 2 GM in Sodium Chloride 0.9% 100 ML IVPB SCH (17:43)
--- NOTE | 2017-10-24 18:13 | PRG ---
DATE OF SERVICE: 10/24/2017 SUBJECTIVE: The patient is having quite a bit of pain in left upper extremity associated with postop state. No headaches, no visual symptoms, voiding without difficulty, no dyspnea or cough. OBJECTIVE: VITAL SIGNS: T-max 99.0, blood pressure 140/65, pulse 98, respirations 18-20, O2 sat 96%. GENERAL: Appears a little bit distressed because of pain, flushed facial skin. LUNGS: With symmetric air entry. No crackles or wheezing. HEART: S1, S2, regular rate. ABDOMEN: Soft, but distended. EXTREMITIES: Left hand with a bulky dressing. He moves extremities equally, otherwise. LABORATORY DATA: White cell count is 5.7, hemoglobin 11, platelets 186,000. Creatinine is up to 1.6 5. Currently on Zosyn and vancomycin. Microbiology with Staphylococcus aureus which is methicillin sensitive; this is from the finger culture. The patient underwent surgical intervention today after the CT scan was reviewed and there was a large amount of fluid which was turbid in the carpal tunnel, culture sent, synovectomy performed, tendons are all stuck together, chronic synovitis. ASSESSMENT AND DISCUSSION: Rheumatoid arthritis, on likely TNF inhibitor; inflammatory process, left fifth finger; tenosynovitis and arthritis, left wrist, status post incision and drainage. Wait on t he culture results. This could reflect inflammatory synovitis rather than infectious or could be a s uperimposed infection with methicillin-sensitive Staphylococcus aureus or another organism. Switch h im to Rocephin, continue vancomycin, discontinue Zosyn, and PICC line placement. He will need a long -term treatment.
[2017-10-24] MEDS: Sodium Chloride 0.9% 1,000 ML IV SCH (19:05)
[2017-10-24] MEDS: Carvedilol 3.125 MG TAB PO SCH (21:18)
[2017-10-25] MEDS: HYDROcodone/Acetaminophen 10/325 mg Tablet PO PRN (00:59)
[2017-10-25] MEDS: Furosemide 100 MG/10 ML VIAL SLOW IVP SCH ×2 (06:02→15:01)
[2017-10-25] MEDS: Sodium Chloride 0.9% 1,000 ML IV SCH (06:06)
[2017-10-25] MEDS: Carvedilol 3.125 MG TAB PO SCH ×2 (08:15→20:54)
[2017-10-25] MEDS: Enoxaparin Sodium 30 MG/0.3 ML SYRINGE SC SCH (08:15)
[2017-10-25] MEDS: Docusate 100 MG CAP PO SCH ×2 (08:15→20:54)
[2017-10-25] MEDS: Potassium Chloride 10 MEQ TAB PO SCH (08:15)
[2017-10-25] MEDS: traMADol HCl 50 MG TAB PO PRN (09:11)
[2017-10-25] MEDS: Acetaminophen 325 MG TAB PO PRN (11:20)
[2017-10-25 12:25] LABS: Vancomycin, Trough 24.1 ug/mL
[2017-10-25] MEDS: Vancomycin HCl 1.5 GM in Sodium Chloride 0.9% 250 ML 300 ML IVPB SCH (13:30)
[2017-10-25] MEDS: cefTRIAXone\\ROCEPHIN 2 GM in Sodium Chloride 0.9% 100 ML IVPB SCH (15:01)
--- NOTE | 2017-10-25 17:01 | SPC ---
LEFT UPPER EXTREMITY PICC PLACEMENT WITH ULTRASOUND GUIDANCE: Date: 10/25/17 HISTORY: Hand infection, in need of IV antibiotics. FINDINGS: The left antecubital fossa was prepped and draped in the normal sterile fashion. Informed consent was obtained prior to the procedure. The skin overlying the left basilic vein was anesthetized with 1% buffered lidocaine. With direct son ographic guidance, vascular access was obtained via the left basilic vein and a .018 wire was advance d into the IVC, subsequently retracted to the cavoatrial junction. Intravascular length was calculate d at 47 cm and the PICC was cut accordingly. The needle was removed and replaced with a peel-away she ath. The trimmed PICC was advanced over the wire. Wire and peel-away sheath were removed. Tip of cath eter overlies cavoatrial junction. Catheter flushes well and is ready for use. EXPOSURE DATA: 0.6 minutes of fluoroscopic time. 6438 mGy*cm^2. IMPRESSION: Successful ultrasound guided left upper extremity PICC placement. POS: [facility]
--- NOTE | 2017-10-25 17:17 | PDOC.PN ---
- Subjective Encounter Start Date: 10/25/17 Encounter Start Time: 17:16 Patient seen and examined. No new complaints. No overnight events - Objective Resuscitation Status: Resuscitation Status FULL:Full Resuscitation MAR Reviewed: Yes Vital Signs & Weight: Vital Signs (12 hours) Temp Pulse Resp BP Pulse Ox 10/25/17 16:00 98.8 F 102 H 17 144/63 H 97 10/25/17 12:00 100.5 F H 102 H 17 134/62 92 L 10/25/17 08:00 99.7 F H 102 H 17 150/66 H 93 L Weight Admit Weight 250 lb 1.6 oz Weight 233 lb 14.4 oz I&O: 10/24/17 10/25/17 10/26/17 06:59 06:59 06:59 Intake Total 1726 2932 Output Total 2855 1000 Balance -1129 1932 Result Diagrams: 10/23/17 04:38 10/24/17 04:53 Additional Labs: Accuchecks 10/24/17 08:19 POC Glucose 69 L Phys Exam - Physical Examination Constitutional: NAD HEENT: PERRLA Neck: no JVD Respiratory: no wheezing Cardiovascular: no significant murmur Gastrointestinal: non-tender lt hand in dressing Neurological: moves all 4 limbs Psychiatric: A&O x 3 Dx/Plan (1) Cellulitis and abscess of hand Code(s): L03.119 - CELLULITIS OF UNSPECIFIED PART OF LIMB; L02.519 - CUTANEOUS ABSCESS OF UNSPECIFIED HAND Status: Acute (2) Fracture of finger of left hand Code(s): S62.609A - FRACTURE OF UNSP PHALANX OF UNSP FINGER, INIT FOR CLOS FX Status: Acute Comment: f/u ortho plan (3) Acute and chronic respiratory failure Code(s): J96.20 - ACUTE AND CHR RESP FAILURE, UNSP W HYPOXIA OR HYPERCAPNIA Status: Acute (4) Acute on chronic combined systolic and diastolic ACC/AHA stage C congestive heart failure Code(s): I50.43 - ACUTE ON CHRONIC COMBINED SYSTOLIC AND DIASTOLIC HRT FAIL Status: Acute (5) Acute on chronic renal failure Code(s): N17.9 - ACUTE KIDNEY FAILURE, UNSPECIFIED; N18.9 - CHRONIC KIDNEY DISEASE, UNSPECIFIED Status: Acute (6) Pacemaker Code(s): Z95.0 - PRESENCE OF CARDIAC PACEMAKER Status: Acute Comment: for sss (7) Rheumatoid arthritis Code(s): M06.9 - RHEUMATOID ARTHRITIS, UNSPECIFIED Status: Chronic Qualifiers: - Plan * * f/u dr harris rec's for abx * case mx to help with placement and arranging out pt abx * diuresis per cardilogy * ortho input appreciated
[2017-10-25] MEDS ORDERED: Heparin 1,000 UNITS/ML VIAL ONE (17:41)
--- NOTE | 2017-10-25 19:13 | PDOC.CTH ---
Cardiology Progress Note - Subjective He is doing better. His breathing is better. - Objective Vital Signs Temp Pulse Resp BP Pulse Ox 10/25/17 16:00 98.8 F 102 H 17 144/63 H 97 10/25/17 12:00 100.5 F H 102 H 17 134/62 92 L 10/25/17 08:00 99.7 F H 102 H 17 150/66 H 93 L Admit Weight 250 lb 1.6 oz Weight 233 lb 14.4 oz 10/24/17 10/25/17 10/26/17 06:59 06:59 06:59 Intake Total 1726 2932 Output Total 2855 1000 Balance -1129 1932 - Physical Examination General/Neuro: alert & oriented x3, NAD Neck: no JVD present Lungs: unlabored respirations Heart: RRR Abdomen: NT/ND Extremities: + edema B (Trace) - Telemetry Telemetry Rhythm: NSR - Labs Result Diagrams: 10/23/17 04:38 10/24/17 04:53 Troponin/CKMB CK-MB (CK-2) 0.9 ng/mL (0-6.6) 10/21/17 11:00 Troponin I 0.073 ng/mL (< 0.028) H 10/21/17 14:00 - Assessment/Plan 1. Acute on chronic systolic and diastolic heart failure 2. Synovitis of the wrist and 5th finger. 3. CAD, stable 4. Rheumatoid arthritis, on Rituxamab 5. Moderate to severe AI PLAN: - Switch to home dose of diuresis. - Stable EF on echo. LV mildly dilated. No obvious evidence of vegetation, he had AI in the past but at the moderate level. Slightly worse on echo. He will need 6 weeks of abx for his wrist per ID. - Will plan on repeat echo in 2 weeks after discharge to make sure his AI is not worsening.
[2017-10-26] MEDS: traMADol HCl 50 MG TAB PO PRN (00:14)
[2017-10-26] MEDS: Acetaminophen 325 MG TAB PO PRN (00:14)
[2017-10-26 05:00] LABS: #Eosinphils 0.1 thou/uL (0.0-0.7); #Monocytes 0.8 thou/uL (0.11-0.59); #Neutrophils 6.3 thou/uL (1.40-6.50); %Basophils 0.3 % (0.0-1.0); %Eosinophils 1.5 % (0.0-10.0); %Lymphocytes 11.8 % (21.0-51.0); %Monocytes 9.9 % (0.0-10.0); Hematocrit 33.7 % (42.0-52.0); Mean Platelet Volume 7.3 fL (7.4-10.4); Red Blood Cell (RBC) Count 3.49 mill/uL (4.70-6.10); White Blood Cell (WBC) Count 8.2 thou/uL (4.8-10.8)
[2017-10-26 05:28] LABS: Anion Gap 18 mmol/L (10-20); BUN (Urea Nitrogen) 41 mg/dL (8.4-25.7); Calc. Creatinine Clearance 61 mL/min (70-130); Calcium 9.8 mg/dL (7.8-10.44); Carbon Dioxide 23 mmol/L (23-31); Chloride 103 mmol/L (98-107); Estimated GFR-MDRD 41; Phosphorus 2.3 mg/dL (2.3-4.7)
[2017-10-26] MEDS: Furosemide 100 MG/10 ML VIAL SLOW IVP SCH (05:54)
[2017-10-26] MEDS: Sodium Chloride 0.9% 1,000 ML IV SCH (05:55)
[2017-10-26] MEDS: Potassium Chloride 10 MEQ TAB PO SCH (08:28)
[2017-10-26] MEDS: Carvedilol 3.125 MG TAB PO SCH ×2 (08:28→20:37)
[2017-10-26] MEDS: Docusate 100 MG CAP PO SCH ×2 (08:29→20:37)
[2017-10-26] MEDS: Enoxaparin Sodium 30 MG/0.3 ML SYRINGE SC SCH (08:29)
[2017-10-26] MEDS ORDERED: Potassium Chloride 20 MEQ TAB PO SCH (13:00)
[2017-10-26] MEDS: Vancomycin HCl 1.5 GM in Sodium Chloride 0.9% 250 ML 300 ML IVPB SCH (13:32)
[2017-10-26] MEDS: cefTRIAXone\\ROCEPHIN 2 GM in Sodium Chloride 0.9% 100 ML IVPB SCH (16:17)
--- NOTE | 2017-10-26 16:17 | PDOC.PN ---
- Subjective Encounter Start Date: 10/26/17 Encounter Start Time: 16:14 c/o leg pain says cant bear weight no n/v no f/c - Objective Resuscitation Status: Resuscitation Status FULL:Full Resuscitation MAR Reviewed: Yes Vital Signs & Weight: Vital Signs (12 hours) Temp Pulse Resp BP Pulse Ox 10/26/17 12:00 99.9 F H 100 16 124/57 L 93 L 10/26/17 08:25 98.6 F 98 18 145/60 H 99 Weight Admit Weight 250 lb 1.6 oz Weight 236 lb 8 oz I&O: 10/25/17 10/26/17 10/27/17 06:59 06:59 06:59 Intake Total 2932 3119 Output Total 1000 675 Balance 1932 2444 Result Diagrams: 10/26/17 04:35 10/26/17 04:35 Phys Exam - Physical Examination Constitutional: NAD HEENT: PERRLA Neck: no JVD Respiratory: no wheezing Cardiovascular: no significant murmur Gastrointestinal: non-tender lt hand in dressing tenderness over avila area on both legs Dx/Plan (1) Cellulitis and abscess of hand Code(s): L03.119 - CELLULITIS OF UNSPECIFIED PART OF LIMB; L02.519 - CUTANEOUS ABSCESS OF UNSPECIFIED HAND Status: Acute (2) Fracture of finger of left hand Code(s): S62.609A - FRACTURE OF UNSP PHALANX OF UNSP FINGER, INIT FOR CLOS FX Status: Acute Comment: f/u ortho plan (3) Acute and chronic respiratory failure Code(s): J96.20 - ACUTE AND CHR RESP FAILURE, UNSP W HYPOXIA OR HYPERCAPNIA Status: Acute (4) Acute on chronic combined systolic and diastolic ACC/AHA stage C congestive heart failure Code(s): I50.43 - ACUTE ON CHRONIC COMBINED SYSTOLIC AND DIASTOLIC HRT FAIL Status: Acute (5) Acute on chronic renal failure Code(s): N17.9 - ACUTE KIDNEY FAILURE, UNSPECIFIED; N18.9 - CHRONIC KIDNEY DISEASE, UNSPECIFIED Status: Acute (6) Pacemaker Code(s): Z95.0 - PRESENCE OF CARDIAC PACEMAKER Status: Acute Comment: for sss (7) Rheumatoid arthritis Code(s): M06.9 - RHEUMATOID ARTHRITIS, UNSPECIFIED Status: Chronic Qualifiers: (8) Leg pain, bilateral Code(s): M79.604 - PAIN IN RIGHT LEG; M79.605 - PAIN IN LEFT LEG Status: Acute - Plan * xray both lower ext * cont abx * change to oral diuretics * f/u dr harris plan
--- NOTE | 2017-10-26 18:45 | PDOC.CTH ---
Cardiology Progress Note - Subjective He is doing better. No chest pain. He is more awake today. Last fever was yesterday. - Objective Vital Signs Temp Pulse Resp BP Pulse Ox 10/26/17 17:03 98.4 F 10/26/17 16:00 98.4 F 102 H 17 95/51 L 93 L 10/26/17 12:00 99.9 F H 100 16 124/57 L 93 L 10/26/17 08:25 98.6 F 98 18 145/60 H 99 Admit Weight 250 lb 1.6 oz Weight 236 lb 8 oz 10/25/17 10/26/17 10/27/17 06:59 06:59 06:59 Intake Total 2932 3119 1289 Output Total 1000 675 175 Balance 1932 2444 1114 - Physical Examination General/Neuro: alert & oriented x3, NAD Neck: no JVD present Lungs: unlabored respirations Heart: RRR Abdomen: NT/ND Extremities: + edema B (Trace) - Telemetry Telemetry Rhythm: NSR - Labs Result Diagrams: 10/26/17 04:35 10/26/17 04:35 Troponin/CKMB CK-MB (CK-2) 0.9 ng/mL (0-6.6) 10/21/17 11:00 Troponin I 0.073 ng/mL (< 0.028) H 10/21/17 14:00 - Assessment/Plan 1. Acute on chronic systolic and diastolic heart failure 2. Synovitis of the wrist and 5th finger. 3. CAD, stable 4. Rheumatoid arthritis, on Rituxamab 5. Moderate to severe AI PLAN: - Continue PO lasix. - Replace K. - Stable EF on echo. - Will plan on repeat echo in 2 weeks after discharge to make sure his AI is not worsening.
--- NOTE | 2017-10-26 18:58 | RAD ---
RIGHT LEG TWO VIEWS 10/26/17 HISTORY: Injury, right leg pain. FINDINGS/IMPRESSION: There are postop changes of total knee arthroplasty in good position and alignment. The right tibia a nd fibula are otherwise intact. POS: [facility]
--- NOTE | 2017-10-26 18:59 | RAD ---
LEFT LEG TWO VIEWS 10/26/17 HISTORY: Injury, right leg pain. FINDINGS/IMPRESSION: There are postop changes of total knee arthroplasty. The left tibia and fibula are otherwise intact. POS: [facility]
--- NOTE | 2017-10-26 19:09 | RAD ---
THREE VIEWS OF THE LEFT ANKLE 10/26/17 COMPARISON: None. HISTORY: Trauma, pain, assess for fracture. FINDINGS: There is degenerative change involving the ankle joint with joint space narrowing, subchondral sclero sis and osteophyte formation. The talar dome and ankle mortise appear intact, with no displaced fract ure or evidence of dislocation seen. There is calcification along the course of the Achilles tendon distally. There is atherosclerotic cee cification at the level of the ankle and imaged calf. IMPRESSION: Chronic appearing findings as detailed above. No displaced fracture or evidence of dislocation seen. POS: [facility]
--- NOTE | 2017-10-26 20:08 | PRG ---
DATE OF SERVICE: 10/26/2017 SUBJECTIVE: Having new onset of pain in the ankles, right and left side. Also, developed fever just an hour ago, first time during the past 48 hours. No headaches, no respiratory symptoms or abdomina l pain, no diarrhea, voiding without difficulty. OBJECTIVE: VITAL SIGNS: T-max 103, pulse 102, respirations 17. GENERAL: Flushed facial skin, oriented. HEART: Little bit tachypneic. S1, S2, regular rate. LUNGS: Clear. ABDOMEN: Soft. Not distended or tender. EXTREMITIES: Removed stocks and compression stockings in the right and left leg and little bit of er ythema along the dorsal aspect of right and left feet in the toes as far as the linear distribution, some of those areas are blanching, others not. No petechiae or purpura. Left wrist appears okay wit h the stitches in place. No erythema. LABORATORY DATA: White cell count 8.2, hemoglobin 10.9, platelets 210. Sodium 141, creatinine 1.66, estimated GFR of 41. Cultures now one of the samples from the labeled as hands, possibly one of the digits with rare gram positive cocci. The wrist swab culture thus far negative and finger culture f rom 10/21 with Staphylococcus aureus which is methicillin susceptible. The patient is currently receiving ceftriaxone 2 grams daily and vancomycin. ASSESSMENT AND DISCUSSION: Rheumatoid arthritis on TNF inhibitor, inflammatory process left finger, left wrist and fourth digit as well status post washout. Staph aureus from the first sample and gram positive cocci isolated from I believe the fourth digit area of exploration. The patient has develo ped fever now and associated with pain in the lower extremities. X-rays have been taken. I do not s ee anything in the physical exam that would indicate an inflammatory process other than the area of e rythema very linear distribution in the skin. At this point, we will continue Rocephin alone. Disco ntinue vancomycin, recrudescence of temperature elevation is probably related to the left wrist proce ss. I do not see any evidence of other inflammatory process in the legs. X-rays will be reviewed.
--- NOTE | 2017-10-26 20:21 | RAD ---
RIGHT ANKLE THREE VIEWS 10/26/17 COMPARISON: 08/26/15 HISTORY: Pain, assess for fracture. FINDINGS: There is soft tissue swelling seen laterally, acuity uncertain, similar when compared to 08/26/15 exam . There is mild widening of the interspace between the lateral aspect of the talus and the medial aspec t of the lateral malleolus. This joint space widening may signify joint laxity/mild subluxation but i s similar when compared to the 08/26/15 examination. No acute fracture or evidence of dislocation is s een. The lateral examination demonstrates a pes planus deformity. There is prominent degenerative change i nvolving the midfoot, not well characterized on this examination. There is midfoot joint space narrowing and dorsal degenerative osteophyte formation. There is incompl ete assessment of the midfoot/talar neck. Recommend further evaluation via radiographs of the right f oot. IMPRESSION: Chronic appearing findings as detailed above. No acute fracture or dislocation. Persistent widening o f the talofibular interspace and advanced degenerative change of the midfoot with pes planus deformit y. Dedicated right foot series is advised for further assessment. Code T POS: [facility]
[2017-10-26] MEDS ORDERED: Furosemide 40 MG TAB PO SCH (21:00)
[2017-10-27] MEDS: Acetaminophen 325 MG TAB PO PRN ×2 (01:58→14:14)
[2017-10-27 02:48] LABS: Oxyhemoglobin 94.6 % (94.0-97.0); Sodium 140 mmol/L (135-148)
[2017-10-27 02:49] LABS: Modified Allen's Test POSITIVE; Vent NO
[2017-10-27 02:50] LABS: Mode Nasal Cannula
[2017-10-27 06:20] LABS: #Eosinphils 0.1 thou/uL (0.0-0.7); #Lymphocytes 1.1 thou/uL (1.20-3.40); #Monocytes 0.9 thou/uL (0.11-0.59); #Neutrophils 9.6 thou/uL (1.40-6.50); %Monocytes 7.6 % (0.0-10.0); Hematocrit 31.7 % (42.0-52.0); Mean Platelet Volume 7.1 fL (7.4-10.4); Red Blood Cell (RBC) Count 3.27 mill/uL (4.70-6.10); White Blood Cell (WBC) Count 11.7 thou/uL (4.8-10.8)
[2017-10-27 06:34] LABS: Anion Gap 12 mmol/L (10-20); BUN (Urea Nitrogen) 52 mg/dL (8.4-25.7); BUN/Creatinine Ratio 28.89; Calc. Creatinine Clearance 57 mL/min (70-130); Carbon Dioxide 25 mmol/L (23-31); Chloride 104 mmol/L (98-107); Estimated GFR-MDRD 37; Phosphorus 1.8 mg/dL (2.3-4.7)
--- NOTE | 2017-10-27 08:09 | RAD ---
UPRIGHT PORTABLE CHEST ONE VIEW: History: 71-year-old male with shortness of breath. FINDINGS: Post op midline sternotomy with minimal cardiomegaly. Right ICD. Mild bilateral vascular congestion b ut no confluent pneumonia, overt edema, or pleural effusion. IMPRESSION: Minimal cardiomegaly with post underlying sternotomy and right ICD. Mild vascular congestion overall improved from prior 10-21-17 study. POS: [facility]
--- NOTE | 2017-10-27 08:57 | PDOC.CTH ---
Cardiology Progress Note - Subjective Using CPAP at night. Had fever overnight. - Objective Vital Signs Temp Pulse Resp BP Pulse Ox 10/27/17 04:00 100.8 F H 97 24 H 113/57 L 95 10/27/17 02:50 97 10/27/17 02:01 103.7 F H 117 H 28 H 126/83 95 Admit Weight 250 lb 1.6 oz Weight 237 lb 3.2 oz 10/26/17 10/27/17 10/28/17 06:59 06:59 06:59 Intake Total 3119 1529 Output Total 675 175 Balance 2444 1354 - Physical Examination General/Neuro: NAD Neck: no JVD present Lungs: unlabored respirations Heart: RRR Abdomen: NT/ND Extremities: other: (no edema.) - Telemetry Telemetry Rhythm: NSR - Labs Result Diagrams: 10/27/17 05:05 10/27/17 05:05 Troponin/CKMB CK-MB (CK-2) 0.9 ng/mL (0-6.6) 10/21/17 11:00 Troponin I 0.073 ng/mL (< 0.028) H 10/21/17 14:00 - Assessment/Plan 1. Acute on chronic systolic and diastolic heart failure 2. Synovitis of the wrist and 5th finger. 3. CAD, stable 4. Rheumatoid arthritis, on Rituxamab 5. Moderate to severe AI PLAN: - one dose IV lasix. - Replace K. - Stable EF on echo. - He continues to have fevers. Will most likely need a GOLDEN to make sure that aortic valve is not seeded, will plan on doing this tomorrow.
[2017-10-27] MEDS ORDERED: Furosemide 20 MG/2 ML VIAL SLOW IVP SCH (09:00)
[2017-10-27] MEDS ORDERED: Furosemide 40 MG/4 ML VIAL SLOW IVP SCH (09:15)
[2017-10-27] MEDS: Enoxaparin Sodium 30 MG/0.3 ML SYRINGE SC SCH (09:45)
[2017-10-27] MEDS: Carvedilol 3.125 MG TAB PO SCH ×2 (09:46→20:39)
[2017-10-27] MEDS: Potassium Chloride 10 MEQ TAB PO SCH (09:46)
[2017-10-27] MEDS: Docusate 100 MG CAP PO SCH ×2 (09:46→20:39)
[2017-10-27] MEDS: Metolazone 5 MG TAB PO SCH (09:46)
[2017-10-27] MEDS ORDERED: Potassium Phosphate 15 MMOL, Admixture Fee 1 EACH in Sodium Chloride 0.9% 250 ML 250 ML IVPB SCH (11:00)
--- NOTE | 2017-10-27 13:56 | PDOC.PN ---
- Subjective Encounter Start Date: 10/27/17 Encounter Start Time: 13:54 had fever yesterday, repeat bld cul ordered c/o burning leg pain no n/v no f/c today - Objective Resuscitation Status: Resuscitation Status FULL:Full Resuscitation MAR Reviewed: Yes Vital Signs & Weight: Vital Signs (12 hours) Temp Pulse Resp BP Pulse Ox 10/27/17 12:00 99.7 F H 97 20 136/63 95 10/27/17 08:00 100.0 F H 106 H 18 139/62 97 10/27/17 04:00 100.8 F H 97 24 H 113/57 L 95 10/27/17 02:50 97 10/27/17 02:01 103.7 F H 117 H 28 H 126/83 95 Weight Admit Weight 250 lb 1.6 oz Weight 237 lb 3.2 oz I&O: 10/26/17 10/27/17 10/28/17 06:59 06:59 06:59 Intake Total 3119 1529 Output Total 675 175 Balance 2444 1354 Result Diagrams: 10/27/17 05:05 10/27/17 05:05 Phys Exam - Physical Examination Constitutional: NAD HEENT: PERRLA Neck: no nodes Respiratory: no wheezing, no rales Cardiovascular: no significant murmur Gastrointestinal: soft Musculoskeletal: pulses present lt hand in dressing,tenderness in both legs Neurological: moves all 4 limbs Psychiatric: A&O x 3 Dx/Plan (1) Cellulitis and abscess of hand Code(s): L03.119 - CELLULITIS OF UNSPECIFIED PART OF LIMB; L02.519 - CUTANEOUS ABSCESS OF UNSPECIFIED HAND Status: Acute (2) Fracture of finger of left hand Code(s): S62.609A - FRACTURE OF UNSP PHALANX OF UNSP FINGER, INIT FOR CLOS FX Status: Acute Comment: had synovectomy on 10/24 (3) Acute and chronic respiratory failure Code(s): J96.20 - ACUTE AND CHR RESP FAILURE, UNSP W HYPOXIA OR HYPERCAPNIA Status: Resolved (4) Acute on chronic combined systolic and diastolic ACC/AHA stage C congestive heart failure Code(s): I50.43 - ACUTE ON CHRONIC COMBINED SYSTOLIC AND DIASTOLIC HRT FAIL Status: Acute (5) Acute on chronic renal failure Code(s): N17.9 - ACUTE KIDNEY FAILURE, UNSPECIFIED; N18.9 - CHRONIC KIDNEY DISEASE, UNSPECIFIED Status: Acute (6) Pacemaker Code(s): Z95.0 - PRESENCE OF CARDIAC PACEMAKER Status: Acute Comment: for sss (7) Rheumatoid arthritis Code(s): M06.9 - RHEUMATOID ARTHRITIS, UNSPECIFIED Status: Chronic Qualifiers: (8) Leg pain, bilateral Code(s): M79.604 - PAIN IN RIGHT LEG; M79.605 - PAIN IN LEFT LEG Status: Acute Comment: ? neuropathic start gabapentin xray negative for fracture (9) Fever Code(s): R50.9 - FEVER, UNSPECIFIED Status: Acute Comment: had fever on 10/26 f/u blood cul ? vidhi - Plan * f/u culture results * cont abx * f/u card and dr harris plan
[2017-10-27] MEDS: Gabapentin 100 MG CAP PO SCH ×2 (14:13→20:39)
[2017-10-27] MEDS: cefTRIAXone\\ROCEPHIN 2 GM in Sodium Chloride 0.9% 100 ML IVPB SCH (17:55)
[2017-10-28 06:03] LABS: #Eosinphils 0.2 thou/uL (0.0-0.7); #Lymphocytes 1.3 thou/uL (1.20-3.40); #Neutrophils 9.9 thou/uL (1.40-6.50); %Basophils 0.1 % (0.0-1.0); %Eosinophils 1.6 % (0.0-10.0); %Lymphocytes 10.5 % (21.0-51.0); %Monocytes 8.1 % (0.0-10.0); Hematocrit 31.2 % (42.0-52.0); Mean Platelet Volume 7.1 fL (7.4-10.4); Red Blood Cell (RBC) Count 3.18 mill/uL (4.70-6.10); White Blood Cell (WBC) Count 12.4 thou/uL (4.8-10.8)
[2017-10-28 06:44] LABS: Anion Gap 11 mmol/L (10-20); BUN (Urea Nitrogen) 73 mg/dL (8.4-25.7); BUN/Creatinine Ratio 38.22; Calc. Creatinine Clearance 55 mL/min (70-130); Calcium 10.4 mg/dL (7.8-10.44); Carbon Dioxide 29 mmol/L (23-31); Chloride 104 mmol/L (98-107); Estimated GFR-MDRD 35; Phosphorus 2.5 mg/dL (2.3-4.7); Uric Acid 11.3 mg/dL (3.5-7.2)
[2017-10-28] MEDS: Acetaminophen 325 MG TAB PO PRN (07:14)
[2017-10-28 08:18] LABS: Mode NC; Modified Allen's Test POSITIVE; Oxyhemoglobin 94.6 % (94.0-97.0); Sodium 141 mmol/L (135-148); Vent NO
[2017-10-28] MEDS ORDERED: Sodium Chloride 0.9% 1,000 ML IV SCH (08:45)
[2017-10-28] MEDS ORDERED: Acetaminophen 650 MG in Premix Bag 1 BAG IVPB PRN (08:57)
[2017-10-28] MEDS ORDERED: Nafcillin 2 GM in Sodium Chloride 0.9% 100 ML IVPB SCH (09:00)
[2017-10-28] MEDS: Potassium Chloride 10 MEQ TAB PO SCH (09:00)
[2017-10-28] MEDS: Hydrocortisone Sod Succ/PF 100 mg/2 ml Vial IVP SCH ×3 (09:16→20:34)
[2017-10-28] MEDS: MEROPENEM 1 GM/50 ML 1 GM in Premix Bag 1 BAG IVPB SCH ×2 (09:17→16:36)
[2017-10-28] MEDS: Sodium Chloride 0.9% 1,000 ML IV SCH ×2 (09:21→16:36)
[2017-10-28] MEDS: Multivit, Chewable SF 1 TAB PO SCH (09:30)
[2017-10-28] MEDS: Gabapentin 100 MG CAP PO SCH ×3 (09:30→22:20)
[2017-10-28] MEDS: Carvedilol 3.125 MG TAB PO SCH ×2 (09:30→22:19)
--- NOTE | 2017-10-28 09:35 | CON ---
DATE OF CONSULTATION: 10/28/2017 CONSULTING PHYSICIAN: [facility]. REASON FOR CONSULTATION: Sepsis. HISTORY OF PRESENT ILLNESS: This is a 71-year-old male who was admitted on 10/22/2017, he had sustai martha a left finger laceration from a knife that he had been using to prepare some chicken. He has req uired orthopedic evaluation for drainage of one of the finger joints. He has been on antibiotic ther apy. Today, he was found to be more lethargic. He had temperature up to 103. ICU transfer was requ ested for sepsis. He had a systolic pressure in the 90s on arrival that has been partially responsiv e to fluid. The patient is confused. He was having apneic spells when I came into the room. He did indicate noah t he had underlying history of sleep apnea. PAST MEDICAL HISTORY: 1. Rheumatoid arthritis. 2. Hypertension. 3. NILESH. 4. Osteoarthritis. 5. Chronic renal insufficiency. 6. Coronary artery disease. 7. COPD. 8. Hyperlipidemia. PAST SURGICAL HISTORY: 1. Coronary bypass grafting surgery. 2. Cardiac catheterization. ALLERGIES: MORPHINE causes confusion. MEDICATIONS PRIOR TO ADMISSION: Acetaminophen, DuoNeb, Coreg, Colace, Lovenox, gabapentin, meropenem , metolazone, Protonix, tramadol, and vancomycin. Outpatient medication list was reviewed and of not e, he was on dexamethasone as an outpatient and steroids have not been continued in the hospital. SOCIAL HISTORY: He smoked in the past. FAMILY MEDICAL HISTORY: COPD and asthma. REVIEW OF SYSTEMS: Unobtainable secondary to his confusion. PHYSICAL EXAMINATION: VITAL SIGNS: Temperature 103, pulse 105, blood pressure 102/44, respiratory rate 24, O2 sat was 97% on 3 liters. GENERAL: He appears acutely ill. HEENT: He has some rattling upper airway noises. NECK: No JVD. LUNGS: Coarse breath sounds. CARDIAC: S1, S2, slightly tachycardic. ABDOMEN: Distended. EXTREMITIES: Plethora over his legs. He has swelling in his left fingers. LABORATORY DATA AND X-RAY FINDINGS: Sodium 140, potassium 3.5, chloride 104, CO2 29, BUN 73, creatin ine 1.9, glucose 110. White blood cell count 12.4, hematocrit 31, platelet count 240. ASSESSMENT: 1. Fever. 2. Sepsis. 3. Sleep apnea. 4. Probably adrenal insufficiency. PLAN: 1. Start BiPAP. 2. Start stress dose steroids. 3. Gentle fluid bolus. 4. Continue antibiotics.
--- NOTE | 2017-10-28 09:42 | PDOC.PN ---
- Subjective Encounter Start Date: 10/28/17 Encounter Start Time: 09:41 pt is more lethargic and is breathing fast. will move him to icu. had some fever no n no v - Objective Resuscitation Status: Resuscitation Status FULL:Full Resuscitation MAR Reviewed: Yes Vital Signs & Weight: Vital Signs (12 hours) Temp Pulse Resp BP Pulse Ox 10/28/17 08:43 106 H 10/28/17 08:00 103 F H 10/28/17 04:00 97.4 F L 96 28 H 143/77 H 90 L 10/28/17 00:00 100.3 F H 109 H 20 152/92 H 93 L Weight Admit Weight 250 lb 1.6 oz Weight 242 lb 3.2 oz Most Recent Monitor Data Heart Rate from ECG 100 NIBP 103/57 NIBP BP-Mean 77 Respiration from ECG 27 SpO2 97 I&O: 10/27/17 10/28/17 10/29/17 06:59 06:59 06:59 Intake Total 1529 850 Output Total 175 150 Balance 1354 850 -150 Result Diagrams: 10/28/17 05:01 10/28/17 05:01 Phys Exam - Physical Examination lelthargic, opening eyes to voice HEENT: PERRLA Neck: no JVD decreased bs at bases Cardiovascular: RRR Gastrointestinal: soft, non-tender Musculoskeletal: pulses present Neurological: moves all 4 limbs Dx/Plan (1) Cellulitis and abscess of hand Code(s): L03.119 - CELLULITIS OF UNSPECIFIED PART OF LIMB; L02.519 - CUTANEOUS ABSCESS OF UNSPECIFIED HAND Status: Acute (2) Fracture of finger of left hand Code(s): S62.609A - FRACTURE OF UNSP PHALANX OF UNSP FINGER, INIT FOR CLOS FX Status: Acute Comment: had synovectomy on 10/24 (3) Acute and chronic respiratory failure Code(s): J96.20 - ACUTE AND CHR RESP FAILURE, UNSP W HYPOXIA OR HYPERCAPNIA Status: Resolved (4) Acute on chronic combined systolic and diastolic ACC/AHA stage C congestive heart failure Code(s): I50.43 - ACUTE ON CHRONIC COMBINED SYSTOLIC AND DIASTOLIC HRT FAIL Status: Acute (5) Acute on chronic renal failure Code(s): N17.9 - ACUTE KIDNEY FAILURE, UNSPECIFIED; N18.9 - CHRONIC KIDNEY DISEASE, UNSPECIFIED Status: Acute (6) Pacemaker Code(s): Z95.0 - PRESENCE OF CARDIAC PACEMAKER Status: Acute Comment: for sss (7) Rheumatoid arthritis Code(s): M06.9 - RHEUMATOID ARTHRITIS, UNSPECIFIED Status: Chronic Qualifiers: (8) Leg pain, bilateral Code(s): M79.604 - PAIN IN RIGHT LEG; M79.605 - PAIN IN LEFT LEG Status: Acute Comment: ? neuropathic start gabapentin xray negative for fracture (9) Fever Code(s): R50.9 - FEVER, UNSPECIFIED Status: Acute Comment: had fever on 10/26 f/u blood cul ? vidhi - Plan * repeat cultures negative * ams - ? metabolic vs infectious * ?vidhi today, f/u card plan * consult dr santana, f/u renal us * f/u rock mason apprentice plan, cont bipap * dr harris rec's appreciated
--- NOTE | 2017-10-28 10:06 | RAD ---
CHEST ONE VIEW PORTABLE: History: 71-year-old male with elevated temperature and fever. Comparison: 10-27-17 FINDINGS: Post underlying sternotomy. Right ICD. Monitor leads overlie the chest. Borderline cardiomegaly with some mild increased markings bilaterally but no confluent pneumonia, overt edema, or pleural effusion . IMPRESSION: Mild to borderline line cardiomegaly. Post underlying sternotomy and right ICD. Stable increased stephanie ings bilaterally without evidence for pneumonia. POS: [facility]
[2017-10-28] MEDS: Vancomycin HCl 1.25 GM in Sodium Chloride 0.9% 250 ML 250 ML IVPB SCH (10:16)
[2017-10-28] MEDS ORDERED: Sodium Chloride 0.9% 500 ML IV SCH (12:00)
--- NOTE | 2017-10-28 12:30 | CON ---
DATE OF CONSULTATION: 10/28/2017 REASON FOR CONSULTATION: Chronic kidney disease. HISTORY OF PRESENT ILLNESS: This is a 71-year-old gentleman who was admitted for sepsis. This junie ng was noted to have altered mental status and low blood pressure and was transferred to the ICU. Th e patient's baseline creatinine has been 1.4 to 1.6 which increased to 1.8 yesterday and 1.9 today, s o I was consulted. His urine output has decreased. PAST MEDICAL HISTORY: Rheumatoid arthritis, hypertension, osteoarthritis, coronary artery disease, h yperlipidemia, CABG, history of valvular heart disease. ALLERGIES: Reviewed. HOME MEDICATIONS: Reviewed. SOCIAL HISTORY: No alcohol or drug use. FAMILY HISTORY: Negative for ESRD. REVIEW OF SYSTEMS: Unobtainable due to confusion. PHYSICAL EXAMINATION: GENERAL: Patient is resting. VITAL SIGNS: Afebrile, pulse 93, breathing at 16, blood pressure 102/44. OBJECTIVE: See above. Awake, alert, in no acute distress. GENERAL APPEARANCE AND MENTAL STATUS: Fair. HEAD/NECK: Normocephalic. Atraumatic. EYES: EOMI. No deformity. EARS: Clear. No ulcers. NOSE: Intact. No lesions. MOUTH: Clear. No discharge. THROAT: Clear. No exudate. LUNGS: Clear. No crackles. CARDIAC: S1, S2. No rub. ABDOMEN: Benign. BS+. GENITALIA/RECTUM: Begum absent. BACK/EXTREMITIES: Edema 0+ Ulcer- NEUROLOGICAL: The patient is resting. SKIN: Rash- Bruise- LYMPHATICS: Edema- Ulcer- LABORATORY: Creatinine 1.9. ASSESSMENT AND RECOMMENDATIONS: 1. Acute kidney injury with chronic kidney disease due to hypertension and sepsis. Continue gentle hydration. 2. Anemia, stable. 3. Congestive heart failure, stable. 4. Renal insufficiency due to long-term steroid use. 5. Sepsis, management per primary team.
--- NOTE | 2017-10-28 13:01 | PDOC.CTH ---
Cardiology Progress Note - Subjective He continues to have fevers. He was hypotensive this morning and had to be transferred to the ICU and placed on a BiPAP, he is better now, he had IV fluids and BP responded. - Objective Vital Signs Temp Pulse Resp BP Pulse Ox 10/28/17 09:00 98.7 F 10/28/17 08:43 106 H 10/28/17 08:00 103 F H 106 H 33 H 96 10/28/17 04:00 97.4 F L 96 28 H 143/77 H 90 L Admit Weight 250 lb 1.6 oz Weight 242 lb 3.2 oz 10/27/17 10/28/17 10/29/17 06:59 06:59 06:59 Intake Total 2272 776 5854 Output Total 175 190 Balance 8939 536 1830 - Physical Examination General/Neuro: NAD Neck: no JVD present Lungs: CTA, unlabored respirations Heart: RRR Abdomen: NT/ND Extremities: + edema B (Trace) - Telemetry Telemetry Rhythm: NSR - Labs Result Diagrams: 10/28/17 05:01 10/28/17 05:01 Troponin/CKMB CK-MB (CK-2) 0.9 ng/mL (0-6.6) 10/21/17 11:00 Troponin I 0.073 ng/mL (< 0.028) H 10/21/17 14:00 - Assessment/Plan 1. Acute on chronic systolic and diastolic heart failure 2. Synovitis of the wrist and 5th finger. 3. CAD, stable 4. Rheumatoid arthritis, on Rituxamab 5. Moderate to severe AI 6. Sepsis. PLAN: - Agree with gentle hydration. - Stable EF on echo. - Will plan GOLDEN once a little more stable in the next 24 to 48 hrs. May not be a good candidate for redo CABG.
[2017-10-28] MEDS: Docusate 100 MG CAP PO SCH ×2 (13:32→22:19)
--- NOTE | 2017-10-28 13:55 | ULT ---
BILATERAL RENAL ULTRASOUND: Date: 10/28/17 INDICATION: Renal insufficiency. COMPARISON: Prior exam dated 12/03/09. FINDINGS: The right kidney measures 11.7 x 6.2 x 7.4 cm. There are two separate cysts involving the right kidne y. One is seen along the lateral margin of the right mid kidney measuring 1.3 x 1.3 cm and has a simp le appearance. The large simple cyst involving the inferior pole of the right kidney is likely stable to a prior exam measuring 6.5 x 6.4 x 5.7 cm. No solid renal lesion or hydronephrosis is demonstrate d. The left kidney measures 12.7 x 8.6 x 6.3 cm. There is a 3.5 x 3.4 x 3.9 cm cyst seen involving the a nterior margin of the left kidney. Previously, this cyst measured over 6.0 cm. This may reflect parti al involution. The bladder is decompressed with an intraluminal Begum catheter. The post-void bladder volume was 10. 4 mL. IMPRESSION: 1. No hydronephrosis or solid renal lesion. 2. Bilateral renal cysts. The cyst involving the left mid kidney has decreased in size from the 2010 exam. POS: [facility]
[2017-10-28] MEDS ORDERED: Meropenem 1 GM in Sodium Chloride 0.9% 100 ML IVPB SCH (14:00)
--- NOTE | 2017-10-28 18:28 | PRG ---
DATE OF SERVICE: 10/28/2017 SUBJECTIVE: Mr. Ocampo was transferred to the ICU because of change in mental status and persisten ce of fever. He is quite obtunded and has obvious respiratory impairment with obstructive symptoms. OBJECTIVE: VITAL SIGNS: The T-max 103 again, blood pressure 128/55, heart rate 94, O2 saturation 97% with BiPAP . GENERAL: The patient is obtunded, arousable, but immediately falls asleep again. He is having obvio us upper airway obstruction, some periorbital edema, some facial flushing. LUNGS: Coarse breath sounds. CARDIAC: S1, S2, regular rate. ABDOMEN: Not distended or tender. EXTREMITIES: The left upper extremity with dressing. The wound appears okay and he does not have Fo marlyn catheter. He moves extremities on command. LABORATORY DATA: White cell count 12.4, hemoglobin 9.7, platelets 240 and creatinine 1.91, sodium 14 0. The patient had a repeat chest x-ray and showed mild cardiomegaly, stable increased markings bila terally without evidence of pneumonia. Renal ultrasound with no hydronephrosis, renal cysts noted. ASSESSMENT AND DISCUSSION: Rheumatoid arthritis on TNF inhibitor, inflammatory process left finger, left wrist and fourth digit status post washed out with methicillin-sensitive Staphylococcus aureus r etrieved, now worsening or recrudescence of fever with change in mental status and upper airway obstr uction. The patient may be developing aspiration pneumonia or mucus plugging with early pneumonitis associated with obstructive sleep apnea. We will broaden the spectrum of coverage with meropenem and vancomycin. Repeat blood cultures thus far are no growth. The patient may need more aggressive res piratory management. Pulmonary Medicine has been consulted. The patient also has a wide open aortic insufficiency, although I believe endocarditis is less likely, but not completely ruled out.
[2017-10-28] MEDS: Heparin 5,000 UNITS/ML VIAL SC SCH (20:34)
[2017-10-29] MEDS: MEROPENEM 1 GM/50 ML 1 GM in Premix Bag 1 BAG IVPB SCH ×3 (00:19→18:20)
[2017-10-29] MEDS: Hydrocortisone Sod Succ/PF 100 mg/2 ml Vial IVP SCH ×4 (02:24→20:14)
[2017-10-29 05:12] LABS: #Lymphocytes 0.6 thou/uL (1.20-3.40); #Monocytes 0.3 thou/uL (0.11-0.59); #Neutrophils 9.4 thou/uL (1.40-6.50); %Lymphocytes 5.8 % (21.0-51.0); %Monocytes 3.2 % (0.0-10.0); Hematocrit 30.1 % (42.0-52.0); Mean Platelet Volume 7.6 fL (7.4-10.4); Red Blood Cell (RBC) Count 3.07 mill/uL (4.70-6.10); White Blood Cell (WBC) Count 10.3 thou/uL (4.8-10.8)
[2017-10-29 05:35] LABS: ALT (SGPT) 10 U/L (8-55); AST (SGOT) 14 U/L (5-34); Alkaline Phosphatase 69 U/L (40-150); Anion Gap 15 mmol/L (10-20); BUN (Urea Nitrogen) 77 mg/dL (8.4-25.7); Bilirubin, Total 0.2 mg/dL (0.2-1.2); Calc. Creatinine Clearance 60 mL/min (70-130); Calcium 10.2 mg/dL (7.8-10.44); Carbon Dioxide 25 mmol/L (23-31); Chloride 108 mmol/L (98-107); Estimated GFR-MDRD 39; Globulin 3.3 g/dL (2.4-3.5); Protein, Total 5.8 g/dL (5.8-8.1)
[2017-10-29] MEDS: Sodium Chloride 0.9% 1,000 ML IV SCH ×2 (06:26→15:12)
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
[2017-10-29] MEDS: Vancomycin HCl 1.25 GM in Sodium Chloride 0.9% 250 ML 250 ML IVPB SCH (08:45)
[2017-10-29] MEDS: Gabapentin 100 MG CAP PO SCH ×3 (08:46→20:12)
[2017-10-29] MEDS: Potassium Chloride 10 MEQ TAB PO SCH (08:46)
[2017-10-29] MEDS: Carvedilol 3.125 MG TAB PO SCH ×2 (08:46→20:12)
[2017-10-29] MEDS: Multivit, Chewable SF 1 TAB PO SCH (08:46)
[2017-10-29] MEDS: Heparin 5,000 UNITS/ML VIAL SC SCH ×2 (08:47→20:14)
[2017-10-29] MEDS: Docusate 100 MG CAP PO SCH ×2 (08:47→20:14)
[2017-10-29] MEDS: Metolazone 5 MG TAB PO SCH (08:58)
[2017-10-29] MEDS: Enoxaparin Sodium 30 MG/0.3 ML SYRINGE SC SCH (08:58)
[2017-10-29] MEDS ORDERED: Propofol 200 MG/20 ML VIAL ONE (15:58)
--- NOTE | 2017-10-29 15:59 | PDOC.PN ---
- Subjective Encounter Start Date: 10/29/17 Encounter Start Time: 16:15 Subjective: Patient feeling better than yesterday. Some loose yellow BM -: today, no foul smell. SOB better. - Objective Resuscitation Status: Resuscitation Status FULL:Full Resuscitation MAR Reviewed: Yes Vital Signs & Weight: Vital Signs (12 hours) Temp Pulse Resp BP Pulse Ox 10/29/17 11:29 97.6 F 86 18 147/65 H 100 10/29/17 11:23 97.6 F 86 18 100 10/29/17 08:00 97.8 F 86 20 99 10/29/17 04:00 98.7 F 15 Weight Admit Weight 250 lb 1.6 oz Weight 238 lb 8.642 oz Most Recent Monitor Data Heart Rate from ECG 76 NIBP 111/45 NIBP BP-Mean 51 Respiration from ECG 16 SpO2 99 I&O: 10/28/17 10/29/17 10/30/17 06:59 06:59 06:59 Intake Total 850 3806 619 Output Total 975 180 Balance 850 2831 439 Result Diagrams: 10/29/17 04:10 10/29/17 04:10 Phys Exam - Physical Examination Constitutional: NAD HEENT: moist MMs Respiratory: no wheezing, no rales, no rhonchi Cardiovascular: RRR Gastrointestinal: soft, positive bowel sounds left arm/hand with splint in place Neurological: non-focal, moves all 4 limbs Psychiatric: normal affect, A&O x 3 Dx/Plan (1) Sepsis Code(s): A41.9 - SEPSIS, UNSPECIFIED ORGANISM Status: Acute Comment: fevers improved after broadening of antibiotics (2) Cellulitis and abscess of hand Code(s): L03.119 - CELLULITIS OF UNSPECIFIED PART OF LIMB; L02.519 - CUTANEOUS ABSCESS OF UNSPECIFIED HAND Status: Acute (3) Acute on chronic combined systolic and diastolic ACC/AHA stage C congestive heart failure Code(s): I50.43 - ACUTE ON CHRONIC COMBINED SYSTOLIC AND DIASTOLIC HRT FAIL Status: Acute (4) CAD (coronary artery disease) Code(s): I25.10 - ATHSCL HEART DISEASE OF [place] CORONARY ARTERY W/O ANG PCTRS Status: Chronic (5) Rheumatoid arthritis Code(s): M06.9 - RHEUMATOID ARTHRITIS, UNSPECIFIED Status: Chronic Qualifiers: Comment: On Rituxamab (6) Aortic insufficiency Code(s): I35.1 - NONRHEUMATIC AORTIC (VALVE) INSUFFICIENCY Status: Chronic (7) NILESH (obstructive sleep apnea) Code(s): G47.33 - OBSTRUCTIVE SLEEP APNEA (ADULT) (PEDIATRIC) Status: Chronic Comment: CPAP at night - Plan cont current plan of care, continue antibiotics * . - Discharge Day Encounter end time: 14:30
--- NOTE | 2017-10-29 16:16 | PRG ---
DATE OF SERVICE: 10/29/2017 SUBJECTIVE: The patient transferred from the ICU to [facility]. He is awake and feeling better. He is mo re alert and oriented, follows commands, little bit of cough, some dyspnea. No abdominal pain, quite a bit of pain in the ankles, which he ascribes to his chronic pain from rheumatoid arthritis, mild t o moderate pain in left wrist. No diarrhea. Voiding through a Begum catheter. OBJECTIVE: VITAL SIGNS: T-max 98.9. His defervescence beginning of yesterday. Blood pressure 140/60, pulse 86 , respirations 18, and O2 sat 100%. SKIN: With left heel area of bruising probably from pressure induced tissue damage. The patient has a left-sided PICC line and Begum catheter. A little bit of periorbital edema, facial skin flushed. HEENT: Ocular movements are conjugate. Sclerae white. Pupils are equal and reactive. Oral cavity moist. LUNGS: With symmetric air entry, somewhat coarse breath sounds. HEART: Regular rate without murmurs. S1 and S2. No S3 or S4. ABDOMEN: Soft, not distended or tender. No bladder distention. EXTREMITIES: Left forearm in a splint and dressing. Other chronic joint deformities associated with rheumatoid arthritis. LABORATORY DATA: White cell count down to 10.3, hemoglobin 9.5, platelets 207 with 90% neutrophils. Chemistry: Sodium 144, creatinine down to 1.75. Transaminases normal. Microbiology with negative blood cultures from 10/26/2017. ASSESSMENT AND DISCUSSION: Rheumatoid arthritis on TNF inhibitor inflammatory process left finger, l eft wrist fourth digit secondary to methicillin susceptible Staphylococcus aureus, status post-surgic al debridement, now on antimicrobial therapy and then worsening clinical status associated with recur rent episodes of fever with change in mental status and evidence of hypoventilation syndrome with jolanta e obstruction. The spectrum of antimicrobial therapy has been broaden and patient was given corticos teroids and BiPAP at the ICU and has improved quite rapidly. The overall picture is consistent with respiratory difficulties associated with hypoventilation syndrome and CO2 narcosis. We will switch h im back to this prior antimicrobial regimen once he stabilizes in the next few days.
[2017-10-29] MEDS ORDERED: PHENYLEPHRINE-NS 100 MCG/ML 10 ML SYRINGE ONE (17:17)
[2017-10-29] MEDS ORDERED: Diprivan 20 ML ONE (17:17)
--- NOTE | 2017-10-29 19:00 | PRG ---
DATE OF SERVICE: 10/29/2017 SUBJECTIVE: This is a 71-year-old gentleman being seen for acute kidney injury. The patient denies any nausea, vomiting, or chest pain. PHYSICAL EXAMINATION: GENERAL: Patient is awake, alert. VITAL SIGNS: Afebrile, pulse 82, breathing at 16, blood pressure 126/62. GENERAL APPEARANCE AND MENTAL STATUS: Fair. HEAD/NECK: Normocephalic. Atraumatic. EYES: EOMI. No deformity. EARS: Clear. No ulcers. NOSE: Intact. No lesions. MOUTH: Clear. No discharge. THROAT: Clear. No exudate. LUNGS: Clear. No crackles. CARDIAC: S1, S2. No rub. ABDOMEN: Benign. BS+. GENITALIA/RECTUM: Begum absent. BACK/EXTREMITIES: Edema 0+ Ulcer- NEUROLOGICAL: Alert and motor intact. SKIN: Rash- Bruise- LYMPHATICS: Edema- Ulcer- LABORATORY: Show hemoglobin 9.5, creatinine 1.7. RECOMMENDATIONS: 1. Acute kidney injury, improved due to hypertension and decreased effect of volume overload. 2. Hypokalemia, improved. 3. Hypertension, stable. Continue hydration. We will follow this patient closely.
[2017-10-30] MEDS: Sodium Chloride 0.9% 1,000 ML IV SCH ×2 (00:23→10:45)
[2017-10-30] MEDS: MEROPENEM 1 GM/50 ML 1 GM in Premix Bag 1 BAG IVPB SCH ×3 (00:23→16:21)
[2017-10-30] MEDS: Hydrocortisone Sod Succ/PF 100 mg/2 ml Vial IVP SCH ×4 (02:56→19:30)
[2017-10-30 06:09] LABS: #Lymphocytes 0.6 thou/uL (1.20-3.40); #Monocytes 0.3 thou/uL (0.11-0.59); #Neutrophils 9.2 thou/uL (1.40-6.50); %Lymphocytes 5.7 % (21.0-51.0); %Monocytes 2.8 % (0.0-10.0); Hematocrit 30.4 % (42.0-52.0); Mean Platelet Volume 7.7 fL (7.4-10.4); White Blood Cell (WBC) Count 10.1 thou/uL (4.8-10.8)
[2017-10-30 07:05] LABS: Anion Gap 11 mmol/L (10-20); BUN (Urea Nitrogen) 84 mg/dL (8.4-25.7); Calc. Creatinine Clearance 72 mL/min (70-130); Calcium 9.7 mg/dL (7.8-10.44); Carbon Dioxide 24 mmol/L (23-31); Chloride 110 mmol/L (98-107); Estimated GFR-MDRD 46
[2017-10-30 08:08] LABS: Vancomycin, Trough 23.5 ug/mL
--- NOTE | 2017-10-30 08:25 | PDOC.PN ---
- Subjective Encounter Start Date: 10/30/17 Encounter Start Time: 10:30 Subjective: Patient with continued diarrhea. Otherwise feeling much better. - Objective Resuscitation Status: Resuscitation Status FULL:Full Resuscitation MAR Reviewed: Yes Vital Signs & Weight: Vital Signs (12 hours) Temp Pulse Resp BP Pulse Ox 10/30/17 04:56 98 10/30/17 03:12 97.5 F L 74 18 142/63 H 98 Weight Admit Weight 250 lb 1.6 oz Weight 248 lb 1.6 oz Most Recent Monitor Data Heart Rate from ECG 76 NIBP 111/45 NIBP BP-Mean 51 Respiration from ECG 16 SpO2 99 I&O: 10/29/17 10/30/17 10/31/17 06:59 06:59 06:59 Intake Total 3806 3114 Output Total 975 930 Balance 2831 2184 Result Diagrams: 10/30/17 05:30 10/30/17 05:30 Phys Exam - Physical Examination Constitutional: NAD HEENT: moist MMs Respiratory: no wheezing, no rales, no rhonchi Cardiovascular: RRR Gastrointestinal: soft, non-tender, positive bowel sounds brace/cast to Left wrist/arm Neurological: non-focal, moves all 4 limbs Psychiatric: normal affect, A&O x 3 Dx/Plan (1) Sepsis Code(s): A41.9 - SEPSIS, UNSPECIFIED ORGANISM Status: Acute Comment: fevers improved after broadening of antibiotics (2) Cellulitis and abscess of hand Code(s): L03.119 - CELLULITIS OF UNSPECIFIED PART OF LIMB; L02.519 - CUTANEOUS ABSCESS OF UNSPECIFIED HAND Status: Acute Comment: Growing back MSSA from 2 wound cultures (3) Acute on chronic combined systolic and diastolic ACC/AHA stage C congestive heart failure Code(s): I50.43 - ACUTE ON CHRONIC COMBINED SYSTOLIC AND DIASTOLIC HRT FAIL Status: Acute (4) CAD (coronary artery disease) Code(s): I25.10 - ATHSCL HEART DISEASE OF [place] CORONARY ARTERY W/O ANG PCTRS Status: Chronic (5) Rheumatoid arthritis Code(s): M06.9 - RHEUMATOID ARTHRITIS, UNSPECIFIED Status: Chronic Qualifiers: Comment: On Rituxamab (6) Aortic insufficiency Code(s): I35.1 - NONRHEUMATIC AORTIC (VALVE) INSUFFICIENCY Status: Chronic (7) NILESH (obstructive sleep apnea) Code(s): G47.33 - OBSTRUCTIVE SLEEP APNEA (ADULT) (PEDIATRIC) Status: Chronic Comment: CPAP at night (8) Diarrhea Code(s): R19.7 - DIARRHEA, UNSPECIFIED Status: Acute Comment: C.diff negative, likely due to antibiotics - Plan cont current plan of care, continue antibiotics on Meropenem and Vancomycin * . - Discharge Day Encounter end time: 10:55
--- NOTE | 2017-10-30 09:19 | ECHO ---
TRANSESOPHAGEAL ECHOCARDIOGRAM: DATE OF SERVICE: 10/29/17 PREPROCEDURE DIAGNOSIS: Ongoing fevers, possible endocarditis. SUMMARY: Mr. Ocampo is a 71-year-old white gentleman who comes to the hospital for an infected finger. He vora d surgery and he continues to have fevers. Repeat echocardiogram showed worsening of aortic insuffici ency, so concern for endocarditis is there. He was brought to the transesophageal echo suite for eval uation of this. After consent was obtained, the anesthesia department provided sedation for the patie nt. Please see their notes for details. After adequate sedation was achieved, transesophageal probe was inserted into his mouth and into the esophagus without issues. Multiple views were then obtained. Left ventricle is normal size. Ejection fraction mildly reduced, estimated at about 45%. Left atrium is mildly dilated. Right atrium is mildly dilated. Right ventricle is normal size with normal systolic function. Aortic valve has three cusps, it opens well. The noncoronary cusp and the left coronary cusp appear t o be normal. The right coronary cusp is flail with two small flail areas. It does not coapt well with the other two and has severe aortic valve regurgitation at the level of the right cusp. No stenosis. Mitral valve is structurally normal. There is mitral annular calcification with no stenosis. Moderate mitral regurgitation. Tricuspid valve structurally normal. There is moderate TR. Pulmonary valve is structurally normal. There is no stenosis or regurgitation, no vegetations. Left atrial appendage is normal size without masses or thrombus. CONCLUSIONS: 1. Systolic function mildly reduced, EF estimated at 45%. 2. Mild right atrial enlargement. 3. MAC with moderate MR. 4. Moderate TR. 5. Severe aortic insufficiency with loss of the anatomy of the right coronary cusp with small, 2 mm, flail masses, which could be related to aortic valve endocarditis versus degenerative process, most likely endocarditis. I do not see any evidence of perivalvular abscess.
[2017-10-30] MEDS: Carvedilol 3.125 MG TAB PO SCH ×2 (09:30→19:30)
[2017-10-30] MEDS: Gabapentin 100 MG CAP PO SCH ×3 (09:30→19:30)
[2017-10-30] MEDS: Docusate 100 MG CAP PO SCH ×2 (09:30→19:31)
[2017-10-30] MEDS: Potassium Chloride 10 MEQ TAB PO SCH (09:30)
[2017-10-30] MEDS: Heparin 5,000 UNITS/ML VIAL SC SCH ×2 (09:31→19:31)
[2017-10-30] MEDS: Multivit, Chewable SF 1 TAB PO SCH (09:32)
--- NOTE | 2017-10-30 14:49 | PDOC.CTH ---
Cardiology Progress Note - Subjective He is doing much better today. His entation is back to normal today. - Objective Vital Signs Temp Pulse Resp BP Pulse Ox 10/30/17 11:50 97.4 F L 82 18 136/61 98 10/30/17 09:13 97.7 F 93 16 149/67 H 99 10/30/17 04:56 98 10/30/17 03:12 97.5 F L 74 18 142/63 H 98 Admit Weight 250 lb 1.6 oz Weight 248 lb 1.6 oz 10/29/17 10/30/17 10/31/17 06:59 06:59 06:59 Intake Total 3806 3114 Output Total 975 930 Balance 2831 2184 - Physical Examination General/Neuro: alert & oriented x3, NAD Neck: no JVD present Lungs: unlabored respirations Heart: other: (Irreg) Abdomen: NT/ND Extremities: + edema B (trace) - Telemetry Telemetry Rhythm: NSR - Labs Result Diagrams: 10/30/17 05:30 10/30/17 05:30 Troponin/CKMB CK-MB (CK-2) 0.9 ng/mL (0-6.6) 10/21/17 11:00 Troponin I 0.073 ng/mL (< 0.028) H 10/21/17 14:00 - Assessment/Plan 1. Acute on chronic systolic and diastolic heart failure 2. Synovitis of the wrist and 5th finger. 3. CAD, stable 4. Rheumatoid arthritis, on Rituxamab 5. 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 6. Sepsis. PLAN: - Much better with current abx regimen. - Replace K - Would treat medically for possible endocardiits which is same time length as for osteomyelitis. - Will need AV replacement once bloodstream is sterile. - He is a poor candidate for open procedure and he would benefit from a TAVR but not if infection around the valve then only option is surgical . Continue conservative management for now.
[2017-10-30] MEDS ORDERED: Vancomycin HCl 1 GM in Premix Bag 1 BAG IVPB SCH (15:00)
[2017-10-31] MEDS: MEROPENEM 1 GM/50 ML 1 GM in Premix Bag 1 BAG IVPB SCH ×2 (00:24→09:34)
[2017-10-31] MEDS: Sodium Chloride 0.9% 1,000 ML IV SCH ×3 (00:24→20:25)
--- NOTE | 2017-10-31 00:40 | PRG ---
DATE OF SERVICE: 10/30/2017 SERVICE: Pulmonary Medicine. INTERVAL HISTORY: The patient is doing fine from a cardiovascular and respiratory standpoint. He denies any current fevers, chills, nausea, vomiting or chest discomfort. He is breathing very comfortably while he is resting. Otherwise, there has been no interval change to his condition. His blood pressures have been much more stable. PHYSICAL EXAMINATION: VITAL SIGNS: Afebrile, pulse 89, blood pressure 144/73, respirations 22 and saturation 93% on 1 liter nasal cannula. GENERAL: The patient is awake and alert, in no apparent distress. LUNGS: Good air entry. There is a slightly prolonged expiratory phase with a little bit of wheezing. Otherwise, I do not hear adventitious sounds. HEART: Normal rate and regular. ABDOMEN: Soft, nontender and nondistended. Bowel sounds positive. MUSCULOSKELETAL: No cyanosis or clubbing. There is chronic stasis change to the bilateral lower extremities, though there is no edema. GENITOURINARY: Begum catheter in place. NEUROLOGIC: Grossly nonfocal. LABORATORY DATA: WBC 10.1, hemoglobin 9.5 and platelets 211,000. Neutrophil count is 91%. Creatinine 1.49, BUN 84. Sodium is 142. Potassium 3.4. Left hand cultures are growing Staph aureus, which are essentially pansensitive. Original finger culture was growing the same organism. Blood cultures x4 is negative. C. diff antigen and toxin is negative. IMAGING DATA: Transesophageal echocardiogram demonstrates minimally reduced ejection fraction. Right atrial enlargement, moderate TR. Severe aortic insufficiency with loss of the anatomy of the right coronary cusp with small 2 mm growth, which could be related to endocarditis versus degenerative process. No perivalvular abscess is identified. ASSESSMENT: 1. Severe sepsis. 2. Methicillin-resistant Staphylococcus aureus of the finger. 3. Endocarditis. 4. Relative adrenal insufficiency. 5. Obstructive sleep apnea. PLAN: Supportive care will be continued. Antibiotics per ID. BiPAP will be continued at night and as needed for sleep. Pulmonary will continue to follow during his hospital stay for the time being. He does have severe aortic insufficiency, which may very well get worse before improving. MTDD
[2017-10-31] MEDS: Hydrocortisone Sod Succ/PF 100 mg/2 ml Vial IVP SCH ×4 (02:11→20:24)
[2017-10-31 05:55] LABS: #Lymphocytes 0.7 thou/uL (1.20-3.40); #Monocytes 0.3 thou/uL (0.11-0.59); #Neutrophils 7.5 thou/uL (1.40-6.50); %Eosinophils 0.2 % (0.0-10.0); %Lymphocytes 7.8 % (21.0-51.0); %Monocytes 3.3 % (0.0-10.0); Hematocrit 31.2 % (42.0-52.0); Mean Platelet Volume 7.3 fL (7.4-10.4); White Blood Cell (WBC) Count 8.4 thou/uL (4.8-10.8)
[2017-10-31 06:24] LABS: Anion Gap 9 mmol/L (10-20); BUN (Urea Nitrogen) 76 mg/dL (8.4-25.7); Calc. Creatinine Clearance 83 mL/min (70-130); Calcium 9.8 mg/dL (7.8-10.44); Carbon Dioxide 26 mmol/L (23-31); Chloride 112 mmol/L (98-107); Estimated GFR-MDRD 53
[2017-10-31] MEDS: Potassium Chloride 10 MEQ TAB PO SCH (08:58)
[2017-10-31] MEDS: Gabapentin 100 MG CAP PO SCH ×3 (08:58→20:24)
[2017-10-31] MEDS: Carvedilol 3.125 MG TAB PO SCH ×2 (08:58→20:24)
[2017-10-31] MEDS: Multivit, Chewable SF 1 TAB PO SCH (08:59)
[2017-10-31] MEDS: Docusate 100 MG CAP PO SCH ×2 (08:59→20:35)
[2017-10-31] MEDS: Heparin 5,000 UNITS/ML VIAL SC SCH ×2 (09:00→20:24)
--- NOTE | 2017-10-31 13:10 | PDOC.PN ---
- Subjective Encounter Start Date: 10/31/17 Encounter Start Time: 08:00 Subjective: no sob or chest pain - Objective Resuscitation Status: Resuscitation Status FULL:Full Resuscitation MAR Reviewed: Yes Vital Signs & Weight: Vital Signs (12 hours) Temp Pulse Resp BP Pulse Ox 10/31/17 11:35 98.0 F 99 16 148/64 H 99 10/31/17 08:00 97.5 F L 101 H 18 153/74 H 96 10/31/17 04:00 97.8 F 92 18 132/71 97 Weight Admit Weight 250 lb 1.6 oz Weight 252 lb Most Recent Monitor Data Heart Rate from ECG 76 NIBP 111/45 NIBP BP-Mean 51 Respiration from ECG 16 SpO2 99 I&O: 10/30/17 10/31/17 11/01/17 06:59 06:59 06:59 Intake Total 3114 3911 Output Total 930 1700 Balance 2184 2211 Result Diagrams: 10/31/17 05:38 10/31/17 05:38 Phys Exam - Physical Examination HEENT: PERRLA, moist MMs Neck: no JVD, supple Respiratory: no wheezing, no rales Cardiovascular: RRR, no significant murmur Gastrointestinal: soft, non-tender, positive bowel sounds Musculoskeletal: no edema, pulses present Neurological: non-focal, moves all 4 limbs Psychiatric: A&O x 3 Dx/Plan (1) Cellulitis and abscess of hand Code(s): L03.119 - CELLULITIS OF UNSPECIFIED PART OF LIMB; L02.519 - CUTANEOUS ABSCESS OF UNSPECIFIED HAND Status: Acute Comment: Growing back MSSA from 2 wound cultures (2) Sepsis Code(s): A41.9 - SEPSIS, UNSPECIFIED ORGANISM Status: Acute Qualifiers: Sepsis type: methicillin susceptible Staphylococcus aureus Qualified Code(s ): A41.01 - Sepsis due to Methicillin susceptible Staphylococcus aureus Comment: fevers improved after broadening of antibiotics (3) Aortic insufficiency Code(s): I35.1 - NONRHEUMATIC AORTIC (VALVE) INSUFFICIENCY Status: Chronic Qualifiers: Cardiac valve disease etiology: nonrheumatic Qualified Code(s): I35.1 - Nonrheumatic aortic (valve) insufficiency (4) CAD (coronary artery disease) Code(s): I25.10 - ATHSCL HEART DISEASE OF [place] CORONARY ARTERY W/O ANG PCTRS Status: Chronic Qualifiers: Coronary Disease-Associated Artery/Lesion type: [place] artery [place] vs. transplanted heart: [place] heart Associated angina: without angina Qualified Code(s): I25.10 - Atherosclerotic heart disease of [place] coronary artery without angina pectoris (5) Acute on chronic renal failure Code(s): N17.9 - ACUTE KIDNEY FAILURE, UNSPECIFIED; N18.9 - CHRONIC KIDNEY DISEASE, UNSPECIFIED Status: Acute Qualifiers: Chronic kidney disease stage: stage 3 (moderate) (6) CHF (congestive heart failure) Code(s): I50.9 - HEART FAILURE, UNSPECIFIED Status: Acute Qualifiers: Congestive heart failure type: combined Comment: ef of 45% (7) Anemia, normocytic normochromic Code(s): D64.9 - ANEMIA, UNSPECIFIED Status: Chronic Comment: chronic, stable (8) COPD (chronic obstructive pulmonary disease) Status: Chronic Qualifiers: COPD type: chronic bronchitis (9) Essential hypertension Code(s): I10 - ESSENTIAL (PRIMARY) HYPERTENSION Status: Chronic (10) NILESH (obstructive sleep apnea) Code(s): G47.33 - OBSTRUCTIVE SLEEP APNEA (ADULT) (PEDIATRIC) Status: Chronic Comment: CPAP at night (11) Obesity (BMI 30-39.9) Code(s): E66.9 - OBESITY, UNSPECIFIED Status: Chronic (12) Physical deconditioning Code(s): R53.81 - OTHER [place] Status: Chronic (13) Rheumatoid arthritis Code(s): M06.9 - RHEUMATOID ARTHRITIS, UNSPECIFIED Status: Chronic Qualifiers: Rheumatoid arthritis location: multiple sites Comment: On Rituxamab - Plan is on meropenem and vanc -: is on solucortef 50mg qid -: normal saline 100mls/hr -: watch for renal function -: possible endocarditis of aortic valve, PT eval * . Review of Systems - Medications/Allergies Allergies/Adverse Reactions: Allergies Allergy/AdvReac Type Severity Reaction Status Date / Time morphine Allergy Verified 06/28/17 16:03 Medications: Current Medications Acetaminophen (Tylenol) 650 mg PO Q4H PRN PRN Reason: Headache/Fever or Pain Last Admin: 10/28/17 07:14 Dose: 650 mg Hydrocodone Bitart/Acetaminophen ([place] 10/325) 1 tab PO Q6H PRN PRN Reason: Pain Last Admin: 10/25/17 00:59 Dose: 1 tab Hydrocodone Bitart/Acetaminophen ([place] 10/325) 2 tab PO Q4H PRN PRN Reason: Pain 2ND LINE Last Admin: 10/24/17 19:37 Dose: 2 tab Albuterol/Ipratropium (Duoneb) 3 ml NEB Q4H PRN PRN Reason: SOB &/or Wheezing Last Admin: 10/22/17 23:06 Dose: 3 ml Bisacodyl (Dulcolax) 10 mg PO DAILYPRN PRN PRN Reason: Constipation Last Admin: 10/26/17 08:29 Dose: 10 mg Carvedilol (Coreg) 3.125 mg PO BID [facility] Last Admin: 10/31/17 08:58 Dose: 3.125 mg Docusate Sodium (Colace) 100 mg PO BID [facility] Last Admin: 10/31/17 08:59 Dose: Not Given Gabapentin (Neurontin) 100 mg PO TID [facility] Last Admin: 10/31/17 08:58 Dose: 100 mg Heparin Sodium (Porcine) (Heparin) 5,000 units SC BID [facility] Last Admin: 10/31/17 09:00 Dose: 5,000 units Hydrocortisone Sodium Succinate (Solu-Cortef) 50 mg IVP 0300,0900,1500,2100 [facility] Last Admin: 10/31/17 08:59 Dose: 50 mg Sodium Chloride (Normal Saline 0.9%) 1,000 mls @ 100 mls/hr IV .Q10H [facility] Last Admin: 10/31/17 11:44 Dose: 1,000 mls Ceftriaxone Sodium 2 gm/ (Sodium Chloride) 100 mls @ 200 mls/hr IVPB Q24HR [facility] Multivitamins (Multivit, Chewable Sf) 1 tab PO DAILY [facility] Last Admin: 10/31/17 08:59 Dose: 1 tab Ondansetron HCl (Zofran Odt) 4 mg PO Q6H PRN PRN Reason: Nausea/Vomiting Last Admin: 10/23/17 12:04 Dose: 4 mg Ondansetron HCl (Zofran) 4 mg IVP Q6H PRN PRN Reason: Nausea/Vomiting Pantoprazole Sodium (Protonix) 40 mg PO DAILY [facility] Last Admin: 10/31/17 09:00 Dose: 40 mg Potassium Chloride (Klor-Con 10) 10 meq PO QA-[facility] Last Admin: 10/31/17 08:58 Dose: 10 meq Sodium Chloride (Flush - Normal Saline) 10 ml IVF Q12HR [facility] Last Admin: 10/31/17 09:00 Dose: Not Given Sodium Chloride (Flush - Normal Saline) 10 ml IVF PRN PRN PRN Reason: Saline Flush Tramadol HCl (Ultram) 50 mg PO Q6H PRN PRN Reason: Pain Last Admin: 10/26/17 00:14 Dose: 50 mg
[2017-10-31] MEDS: cefTRIAXone\\ROCEPHIN 2 GM in Sodium Chloride 0.9% 100 ML IVPB SCH (13:59)
--- NOTE | 2017-10-31 15:03 | PDOC.CTH ---
Cardiology Progress Note - Subjective He continues to feel as well as he did yesterday. No new issues. - Objective Vital Signs Temp Pulse Resp BP Pulse Ox 10/31/17 11:35 98.0 F 99 16 148/64 H 99 10/31/17 08:00 97.5 F L 101 H 18 153/74 H 96 10/31/17 04:00 97.8 F 92 18 132/71 97 Admit Weight 250 lb 1.6 oz Weight 252 lb 10/30/17 10/31/17 11/01/17 06:59 06:59 06:59 Intake Total 3114 3911 Output Total 930 1700 Balance 2184 2211 - Physical Examination General/Neuro: alert & oriented x3, NAD Neck: no JVD present Lungs: unlabored respirations Heart: RRR Abdomen: NT/ND Extremities: + edema B (Trace) - Telemetry Telemetry Rhythm: NSR - Labs Result Diagrams: 10/31/17 05:38 10/31/17 05:38 Troponin/CKMB CK-MB (CK-2) 0.9 ng/mL (0-6.6) 10/21/17 11:00 Troponin I 0.073 ng/mL (< 0.028) H 10/21/17 14:00 - Assessment/Plan 1. Acute on chronic systolic and diastolic heart failure 2. Synovitis of the wrist and 5th finger. 3. CAD, stable 4. Rheumatoid arthritis, on Rituxamab 5. 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 6. Sepsis. PLAN: - Much better with current abx regimen. - Replace K - Would treat medically for possible endocarditis. - Will need AV replacement once bloodstream is sterile. - TAVR once infection cleared.
[2017-10-31] MEDS ORDERED: Potassium Chloride 20 MEQ TAB PO SCH ×2 (15:15→22:15)
[2017-10-31] MEDS ORDERED: Furosemide 40 MG/4 ML VIAL SLOW IVP SCH (22:15)
--- NOTE | 2017-10-31 22:16 | PRG ---
DATE OF SERVICE: 10/31/2017 SERVICE: Pulmonary Medicine. INTERVAL HISTORY: The patient actually feels much improved. He suggests that he feels he has got mo re energy and strength about him. He has got a better appetite. He is eating more food. That being said, he also suggested that he is having a new onset cough, like the fluid is coming back on. Othe rwise, there has been no significant change to his condition. PHYSICAL EXAMINATION: VITAL SIGNS: Afebrile, pulse 75, blood pressure 160/71, respirations 16, saturation 97% on room air. GENERAL: Patient is awake, alert, in no apparent distress. LUNGS: Excellent air entry. Dependent crackles are minimal. HEART: Normal rate, regular. ABDOMEN: Soft, nontender, nondistended. Bowel sounds positive. MUSCULOSKELETAL: No cyanosis or clubbing. No pitting in the bilateral lower extremities. NEUROLOGIC: Grossly nonfocal. LABORATORY DATA: WBC 8.4, hemoglobin 9.8, platelets 212. Creatinine is downtrending to 1.32. Basic metabolic profile is otherwise unremarkable except for potassium of 3.2. BUN is downtrending to 76. ASSESSMENT: 1. Severe sepsis. 2. Methicillin-resistant Staphylococcus aureus of the finger. 3. Endocarditis. 4. Relative adrenal insufficiency. 5. Obstructive sleep apnea. PLAN: We will continue supportive care. Half normal saline will be discontinued. I will provide hi m with D5 water at 25 an hour over the next 24 hours. Potassium will be replaced today.
[2017-10-31] MEDS: Dextrose 5% in Water 1,000 ML IV SCH (22:24)
[2017-11-01] MEDS: Hydrocortisone Sod Succ/PF 100 mg/2 ml Vial IVP SCH ×2 (03:20→08:29)
[2017-11-01 06:15] LABS: Anion Gap 10 mmol/L (10-20); BUN (Urea Nitrogen) 68 mg/dL (8.4-25.7); Calc. Creatinine Clearance 89 mL/min (70-130); Calcium 10.1 mg/dL (7.8-10.44); Carbon Dioxide 27 mmol/L (23-31); Chloride 113 mmol/L (98-107); Estimated GFR-MDRD 58
[2017-11-01 06:41] LABS: #Lymphocytes 0.5 thou/uL (1.20-3.40); #Monocytes 0.3 thou/uL (0.11-0.59); #Neutrophils 7.1 thou/uL (1.40-6.50); %Eosinophils 0.2 % (0.0-10.0); %Lymphocytes 6.4 % (21.0-51.0); Mean Platelet Volume 7.6 fL (7.4-10.4); Red Blood Cell (RBC) Count 3.47 mill/uL (4.70-6.10)
[2017-11-01] MEDS: Carvedilol 3.125 MG TAB PO SCH ×2 (08:29→20:47)
[2017-11-01] MEDS: Heparin 5,000 UNITS/ML VIAL SC SCH ×2 (08:29→20:47)
[2017-11-01] MEDS: Gabapentin 100 MG CAP PO SCH ×3 (08:29→20:47)
[2017-11-01] MEDS: Multivit, Chewable SF 1 TAB PO SCH (08:29)
[2017-11-01] MEDS: Docusate 100 MG CAP PO SCH ×2 (08:29→20:47)
[2017-11-01] MEDS: Potassium Chloride 20 MEQ TAB PO SCH ×3 (08:29→20:47)
[2017-11-01] MEDS ORDERED: Albuterol Sulfate 1.25 MG/3 ML NEB NEB PRN (08:43)
--- NOTE | 2017-11-01 08:54 | PRG ---
DATE OF SERVICE: 10/22/2017 SUBJECTIVE: He is complaining of some breathing issues today, so he is not currently on his asthma m edications. OBJECTIVE: VITAL SIGNS: Temperature is 97.5, pulse 93, respirations 17, O2 saturation 97%, blood pressure 145/7 3. HEENT: Unremarkable. NECK: No JVD. LUNGS: Fairly clear. CARDIAC: S1 and S2 regular. ABDOMEN: Soft. EXTREMITIES: No edema. LABORATORY DATA: White blood cell count 8, hematocrit 34, platelet count 238. Sodium 147, potassium 3.2, chloride 113, CO2 27, BUN 68, creatinine 1.2, glucose 207. ASSESSMENT: 1. Status post acute respiratory failure. 2. Obstructive sleep apnea. 3. History of asthma. 4. Status post debridement of the infection left hand. PLAN: 1. Add back his albuterol and budesonide. 2. Hopefully home soon.
[2017-11-01] MEDS: Dexamethasone 1 MG TAB PO SCH (10:22)
--- NOTE | 2017-11-01 10:53 | PDOC.PN ---
- Subjective Encounter Start Date: 11/01/17 Encounter Start Time: 07:45 Subjective: awake, has cough+ -: no sob or palp - Objective Resuscitation Status: Resuscitation Status FULL:Full Resuscitation MAR Reviewed: Yes Vital Signs & Weight: Vital Signs (12 hours) Temp Pulse Resp BP Pulse Ox 11/01/17 08:22 97.5 F L 92 17 145/73 H 97 11/01/17 03:20 98.0 F 83 15 161/72 H 94 L 11/01/17 00:20 97.6 F 82 18 171/82 H 96 11/01/17 00:00 98 Weight Admit Weight 250 lb 1.6 oz Weight 253 lb Most Recent Monitor Data Heart Rate from ECG 76 NIBP 111/45 NIBP BP-Mean 51 Respiration from ECG 16 SpO2 99 I&O: 10/31/17 11/01/17 11/02/17 06:59 06:59 06:59 Intake Total 3911 3200 Output Total 1700 2300 Balance 2211 900 Result Diagrams: 11/01/17 05:18 11/01/17 05:18 Phys Exam - Physical Examination HEENT: PERRLA, sclera anicteric Neck: no JVD, supple Respiratory: no wheezing, no rales rhonchi++ Cardiovascular: RRR, no significant murmur Gastrointestinal: soft, non-tender, positive bowel sounds Musculoskeletal: pulses present, edema present Neurological: non-focal, moves all 4 limbs Psychiatric: A&O x 3 Dx/Plan (1) Cellulitis and abscess of hand Code(s): L03.119 - CELLULITIS OF UNSPECIFIED PART OF LIMB; L02.519 - CUTANEOUS ABSCESS OF UNSPECIFIED HAND Status: Acute Comment: Growing back MSSA from 2 wound cultures (2) Sepsis Code(s): A41.9 - SEPSIS, UNSPECIFIED ORGANISM Status: Acute Qualifiers: Sepsis type: methicillin susceptible Staphylococcus aureus Qualified Code(s ): A41.01 - Sepsis due to Methicillin susceptible Staphylococcus aureus (3) Aortic insufficiency Code(s): I35.1 - NONRHEUMATIC AORTIC (VALVE) INSUFFICIENCY Status: Chronic Qualifiers: Cardiac valve disease etiology: nonrheumatic Qualified Code(s): I35.1 - Nonrheumatic aortic (valve) insufficiency (4) CAD (coronary artery disease) Code(s): I25.10 - ATHSCL HEART DISEASE OF [place] CORONARY ARTERY W/O ANG PCTRS Status: Chronic Qualifiers: Coronary Disease-Associated Artery/Lesion type: [place] artery [place] vs. transplanted heart: [place] heart Associated angina: without angina Qualified Code(s): I25.10 - Atherosclerotic heart disease of [place] coronary artery without angina pectoris (5) Acute on chronic renal failure Code(s): N17.9 - ACUTE KIDNEY FAILURE, UNSPECIFIED; N18.9 - CHRONIC KIDNEY DISEASE, UNSPECIFIED Status: Acute Qualifiers: Chronic kidney disease stage: stage 3 (moderate) (6) CHF (congestive heart failure) Code(s): I50.9 - HEART FAILURE, UNSPECIFIED Status: Acute Qualifiers: Congestive heart failure type: combined Comment: ef of 45% (7) Anemia, normocytic normochromic Code(s): D64.9 - ANEMIA, UNSPECIFIED Status: Chronic Comment: chronic, stable (8) COPD (chronic obstructive pulmonary disease) Status: Chronic Qualifiers: COPD type: chronic bronchitis (9) Essential hypertension Code(s): I10 - ESSENTIAL (PRIMARY) HYPERTENSION Status: Chronic (10) NILESH (obstructive sleep apnea) Code(s): G47.33 - OBSTRUCTIVE SLEEP APNEA (ADULT) (PEDIATRIC) Status: Chronic Comment: CPAP at night (11) Obesity (BMI 30-39.9) Code(s): E66.9 - OBESITY, UNSPECIFIED Status: Chronic (12) Physical deconditioning Code(s): R53.81 - OTHER MALAISE Status: Chronic (13) Rheumatoid arthritis Code(s): M06.9 - RHEUMATOID ARTHRITIS, UNSPECIFIED Status: Chronic Qualifiers: Rheumatoid arthritis location: multiple sites Comment: On Rituxamab - Plan is on ceftriaxone based on cultures -: PT to mobilize pt as tolerated, [facility] -: -st) or swing bed based on PT recommendation -: wound care, replace potassium, decadron, off solucortef -: CRISTINA, sodium levels are improving steadily * . Review of Systems - Medications/Allergies Allergies/Adverse Reactions: Allergies Allergy/AdvReac Type Severity Reaction Status Date / Time morphine Allergy Verified 06/28/17 16:03 Medications: Current Medications Acetaminophen (Tylenol) 650 mg PO Q4H PRN PRN Reason: Headache/Fever or Pain Last Admin: 10/28/17 07:14 Dose: 650 mg Hydrocodone Bitart/Acetaminophen ([place] 10/325) 1 tab PO Q6H PRN PRN Reason: Pain Last Admin: 10/25/17 00:59 Dose: 1 tab Hydrocodone Bitart/Acetaminophen ([place] 10/325) 2 tab PO Q4H PRN PRN Reason: Pain 2ND LINE Last Admin: 10/24/17 19:37 Dose: 2 tab Albuterol Sulfate (Albuterol Sulfate) 1.25 mg NEB [id number] PRN PRN Reason: Wheezing Albuterol/Ipratropium (Duoneb) 3 ml NEB Q4H PRN PRN Reason: SOB &/or Wheezing Last Admin: 10/22/17 23:06 Dose: 3 ml Arformoterol Tartrate (Brovana) 15 mcg NEB BID-RT [facility] Bisacodyl (Dulcolax) 10 mg PO DAILYPRN PRN PRN Reason: Constipation Last Admin: 10/26/17 08:29 Dose: 10 mg Budesonide (Pulmicort Neb Solution) 0.5 mg INH BID-RT [facility] Carvedilol (Coreg) 3.125 mg PO BID [facility] Last Admin: 11/01/17 08:29 Dose: 3.125 mg Dexamethasone (Decadron) 2 mg PO DAILY [facility] Last Admin: 11/01/17 10:22 Dose: 2 mg Docusate Sodium (Colace) 100 mg PO BID [facility] Last Admin: 11/01/17 08:29 Dose: 100 mg Gabapentin (Neurontin) 100 mg PO TID [facility] Last Admin: 11/01/17 08:29 Dose: 100 mg Heparin Sodium (Porcine) (Heparin) 5,000 units SC BID [facility] Last Admin: 11/01/17 08:29 Dose: 5,000 units Ceftriaxone Sodium 2 gm/ (Sodium Chloride) 100 mls @ 200 mls/hr IVPB Q24HR [facility] Last Admin: 10/31/17 13:59 Dose: 100 mls Dextrose/Water (D5w) 1,000 mls @ 50 mls/hr IV .Q20H [facility] Last Admin: 10/31/17 22:24 Dose: 1,000 mls Multivitamins (Multivit, Chewable Sf) 1 tab PO DAILY [facility] Last Admin: 11/01/17 08:29 Dose: 1 tab Ondansetron HCl (Zofran Odt) 4 mg PO Q6H PRN PRN Reason: Nausea/Vomiting Last Admin: 10/23/17 12:04 Dose: 4 mg Ondansetron HCl (Zofran) 4 mg IVP Q6H PRN PRN Reason: Nausea/Vomiting Pantoprazole Sodium (Protonix) 40 mg PO DAILY [facility] Last Admin: 11/01/17 08:29 Dose: 40 mg Potassium Chloride (K-Dur) 40 meq PO 0200,0800,1400,2000 [facility] Stop: 11/02/17 02:01 Last Admin: 11/01/17 08:29 Dose: 40 meq Sodium Chloride (Flush - Normal Saline) 10 ml IVF Q12HR [facility] Last Admin: 11/01/17 08:28 Dose: Not Given Sodium Chloride (Flush - Normal Saline) 10 ml IVF PRN PRN PRN Reason: Saline Flush Tramadol HCl (Ultram) 50 mg PO Q6H PRN PRN Reason: Pain Last Admin: 10/26/17 00:14 Dose: 50 mg
[2017-11-01] MEDS: cefTRIAXone\\ROCEPHIN 2 GM in Sodium Chloride 0.9% 100 ML IVPB SCH (12:27)
--- NOTE | 2017-11-01 15:54 | PDOC.CTH ---
Cardiology Progress Note - Subjective Doing well. he is a little more SOB today than yesterday. - Objective Vital Signs Temp Pulse Resp BP Pulse Ox 11/01/17 12:32 97.3 F L 95 18 139/65 94 L 11/01/17 08:22 97.5 F L 92 17 145/73 H 97 11/01/17 08:00 97.3 F L 95 18 97 Admit Weight 250 lb 1.6 oz Weight 253 lb 10/31/17 11/01/17 11/02/17 06:59 06:59 06:59 Intake Total 3911 3200 Output Total 1700 2300 Balance 2211 900 - Physical Examination General/Neuro: alert & oriented x3, NAD Neck: no JVD present Lungs: CTA, unlabored respirations Heart: RRR Abdomen: NT/ND Extremities: + edema B (1+) - Telemetry Telemetry Rhythm: AV paced. - Labs Result Diagrams: 11/01/17 05:18 11/01/17 05:18 Troponin/CKMB CK-MB (CK-2) 0.9 ng/mL (0-6.6) 10/21/17 11:00 Troponin I 0.073 ng/mL (< 0.028) H 10/21/17 14:00 - Assessment/Plan 1. Acute on chronic systolic and diastolic heart failure 2. Synovitis of the wrist and 5th finger. 3. CAD, stable 4. Rheumatoid arthritis, on Rituxamab 5. 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 6. Sepsis. PLAN: - Much better with current abx regimen. - Replace K - Would treat medically for possible endocarditis. - Will need AV replacement once bloodstream is sterile. - TAVR once infection cleared. - One dose IV lasix today. - Judicious use of fluids due to severe AI.
[2017-11-01] MEDS ORDERED: Furosemide 40 MG/4 ML VIAL SLOW IVP SCH (16:15)
[2017-11-01] MEDS: Dextrose 5% in Water 1,000 ML IV SCH (19:02)
[2017-11-01] MEDS: Arformoterol 15 MCG/2 ML NEB NEB SCH (19:18)
[2017-11-01] MEDS: Budesonide 0.5 MG/2 ML NEB INH SCH (19:19)
[2017-11-02] MEDS: Potassium Chloride 20 MEQ TAB PO SCH (02:10)
[2017-11-02] MEDS: Budesonide 0.5 MG/2 ML NEB INH SCH ×2 (06:14→19:44)
[2017-11-02] MEDS: Arformoterol 15 MCG/2 ML NEB NEB SCH ×2 (06:17→19:44)
[2017-11-02 06:42] LABS: Anion Gap 12 mmol/L (10-20); BUN (Urea Nitrogen) 62 mg/dL (8.4-25.7); Calc. Creatinine Clearance 106 mL/min (70-130); Calcium 10.1 mg/dL (7.8-10.44); Carbon Dioxide 23 mmol/L (23-31); Chloride 115 mmol/L (98-107); Estimated GFR-MDRD 70
[2017-11-02 06:51] LABS: Hematocrit 32.7 % (42.0-52.0); Mean Platelet Volume 7.7 fL (7.4-10.4); Red Blood Cell (RBC) Count 3.37 mill/uL (4.70-6.10); White Blood Cell (WBC) Count 9.9 thou/uL (4.8-10.8)
--- NOTE | 2017-11-02 07:46 | PRG ---
DATE OF SERVICE: 11/02/2017 SUBJECTIVE: He is complaining of shortness of breath. He feels like something is stuck in his trach ea. PHYSICAL EXAMINATION: VITAL SIGNS: His temperature is 97.2, pulse 74, respirations 18, O2 sat 99%, blood pressure 146/63. HEENT: Unremarkable. NECK: No JVD. CHEST: Fairly clear. CARDIAC: S1 and S2 regular. ABDOMEN: Soft. EXTREMITIES: Edematous hand. LABORATORY DATA: White blood cell count 9.9, hematocrit 32.7, platelet count 216. Sodium 144, potas sium 5.5, chloride 115, CO2 23, BUN 62, creatinine 1.0, glucose 139. ASSESSMENT: 1. Status post acute respiratory failure secondary to sepsis. 2. Hand infection. 3. Obstructive sleep apnea. 4. History of asthma. 5. Mild hyperkalemia. PLAN: 1. I will change his nebulization treatments to see if this will give him more relief of his breathi ng. 2. Continue to follow with you.
[2017-11-02 09:09] LABS: Band 1 % (5-11); Neutrophil 82 % (42-75)
[2017-11-02] MEDS ORDERED: Furosemide 20 MG TAB PO SCH (09:30)
[2017-11-02] MEDS: Dexamethasone 1 MG TAB PO SCH (09:40)
[2017-11-02] MEDS: Carvedilol 3.125 MG TAB PO SCH ×2 (09:40→20:29)
[2017-11-02] MEDS: Gabapentin 100 MG CAP PO SCH ×2 (09:41→14:54)
[2017-11-02] MEDS: Docusate 100 MG CAP PO SCH ×2 (09:41→20:29)
[2017-11-02] MEDS: Heparin 5,000 UNITS/ML VIAL SC SCH ×2 (09:41→20:29)
[2017-11-02] MEDS: Multivit, Chewable SF 1 TAB PO SCH (09:41)
[2017-11-02] MEDS: Albuterol Sulfate 1.25 MG/3 ML NEB EZPAP SCH ×3 (10:31→19:40)
[2017-11-02 12:17] LABS: Anion Gap 8 mmol/L (10-20); BUN (Urea Nitrogen) 62 mg/dL (8.4-25.7); Calc. Creatinine Clearance 105 mL/min (70-130); Calcium 10.5 mg/dL (7.8-10.44); Carbon Dioxide 27 mmol/L (23-31); Chloride 114 mmol/L (98-107); Estimated GFR-MDRD 70
[2017-11-02] MEDS: cefTRIAXone\\ROCEPHIN 2 GM in Sodium Chloride 0.9% 100 ML IVPB SCH (13:18)
[2017-11-02] MEDS: Dextrose 5% in Water 1,000 ML IV SCH ×2 (15:19→23:21)
--- NOTE | 2017-11-02 18:21 | PDOC.CTH ---
Cardiology Progress Note - Subjective He is doing well. Continues to improved. His breathing is much better with IV dose of lasix yesterday. - Objective Vital Signs Temp Pulse Resp BP Pulse Ox 11/02/17 15:06 97.8 F 70 20 125/78 97 11/02/17 13:50 81 18 97 11/02/17 12:00 97.8 F 67 18 148/65 H 95 11/02/17 10:31 66 18 100 11/02/17 08:00 97.9 F 78 17 99 Admit Weight 250 lb 1.6 oz Weight 254 lb 11/01/17 11/02/17 11/03/17 06:59 06:59 06:59 Intake Total 3200 2465 Output Total 2300 1975 Balance 900 490 - Physical Examination General/Neuro: alert & oriented x3, NAD Neck: no JVD present Lungs: unlabored respirations Heart: RRR Abdomen: NT/ND Extremities: + edema B (trace) - Telemetry Telemetry Rhythm: A paced, - Labs Result Diagrams: 11/02/17 05:57 11/02/17 11:54 Troponin/CKMB CK-MB (CK-2) 0.9 ng/mL (0-6.6) 10/21/17 11:00 Troponin I 0.073 ng/mL (< 0.028) H 10/21/17 14:00 - Assessment/Plan 1. Acute on chronic systolic and diastolic heart failure 2. Synovitis of the wrist and 5th finger. 3. CAD, stable 4. Rheumatoid arthritis, on Rituxamab 5. 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 6. Sepsis. PLAN: - Would treat medically for possible endocarditis. - Will need AV replacement once bloodstream is sterile. - TAVR once infection cleared. - Lasox to PO tomorrow. - Judicious use of fluids due to severe AI.
--- NOTE | 2017-11-02 21:31 | PDOC.PN ---
- Subjective Encounter Start Date: 11/02/17 Encounter Start Time: 17:45 Patient seen and examined. No new complaints. No overnight events - Objective Resuscitation Status: Resuscitation Status FULL:Full Resuscitation MAR Reviewed: Yes Vital Signs & Weight: Vital Signs (12 hours) Temp Pulse Resp BP Pulse Ox 11/02/17 19:40 78 16 95 11/02/17 19:10 97.9 F 78 18 99 11/02/17 15:06 97.8 F 70 20 125/78 97 11/02/17 13:50 81 18 97 11/02/17 12:00 97.8 F 67 18 148/65 H 95 11/02/17 10:31 66 18 100 Weight Admit Weight 250 lb 1.6 oz Weight 254 lb Most Recent Monitor Data Heart Rate from ECG 76 NIBP 111/45 NIBP BP-Mean 51 Respiration from ECG 16 SpO2 99 I&O: 11/01/17 11/02/17 11/03/17 06:59 06:59 06:59 Intake Total 3200 2465 1540 Output Total 2300 1975 Balance 893 236 3221 Result Diagrams: 11/02/17 05:57 11/03/17 05:15 EKG Reviewed by me: Yes (Tele paced) Phys Exam - Physical Examination Constitutional: NAD Respiratory: no wheezing, no rhonchi Cardiovascular: RRR, no rub Gastrointestinal: soft, positive bowel sounds Neurological: non-focal, moves all 4 limbs Psychiatric: A&O x 3 Dx/Plan - Plan DVT proph w/heparin, DVT proph w/SCDs IMPRESSION: 1. Acute on Chronic systolic/diastolic HF exacerbation - improving 2. Hyperkalemia 3. Sepsis with acute organ dysfunction due to staph synovitis of left hand/ wrist s/p I&D 4. s/p Resp failure requiring NIPPV 5. Obesity BMI 35/Elevated trop due to CHF/ CKD 3/ CRISTINA-resolved/HTN/RA on immunosuppressant/CAD s/p CABG-stent/NILESH/Mild intermittent Asthma/GERD/Severe AI with ?endocarditis/NILESH on CPAP PLAN: * Repeat Potassium normal * Cont Atbx * AM labs * JEANNIE cunningham in AM Review of Systems - Review of Systems Respiratory: negative: Cough, Dry, Shortness of Breath, Hemoptysis, SOB with Excertion, Pleuritic Pain, Sputum, Wheezing Cardiovascular: negative: Chest Pain, Palpitations, Orthopnea, Paroxysmal Noc. Dyspnea, Edema, Light Headedness - Medications/Allergies Allergies/Adverse Reactions: Allergies Allergy/AdvReac Type Severity Reaction Status Date / Time morphine Allergy Verified 06/28/17 16:03 Medications: Current Medications Acetaminophen (Tylenol) 650 mg PO Q4H PRN PRN Reason: Headache/Fever or Pain Last Admin: 10/28/17 07:14 Dose: 650 mg Hydrocodone Bitart/Acetaminophen ([place] 10/325) 2 tab PO Q4H PRN PRN Reason: Pain 2ND LINE Last Admin: 10/24/17 19:37 Dose: 2 tab Albuterol Sulfate (Albuterol Sulfate) 1.25 mg EZPAP [id number] [facility] Last Admin: 11/02/17 19:40 Dose: 1.25 mg Albuterol/Ipratropium (Duoneb) 3 ml NEB Q4H PRN PRN Reason: SOB &/or Wheezing Last Admin: 10/22/17 23:06 Dose: 3 ml Arformoterol Tartrate (Brovana) 15 mcg NEB BID-RT [facility] Last Admin: 11/02/17 19:44 Dose: 15 mcg Bisacodyl (Dulcolax) 10 mg PO DAILYPRN PRN PRN Reason: Constipation Last Admin: 10/26/17 08:29 Dose: 10 mg Budesonide (Pulmicort Neb Solution) 0.5 mg INH BID-RT [facility] Last Admin: 11/02/17 19:44 Dose: 0.5 mg Carvedilol (Coreg) 3.125 mg PO BID [facility] Last Admin: 11/02/17 20:29 Dose: 3.125 mg Dexamethasone (Decadron) 2 mg PO DAILY [facility] Last Admin: 11/02/17 09:40 Dose: 2 mg Docusate Sodium (Colace) 100 mg PO BID [facility] Last Admin: 11/02/17 20:29 Dose: Not Given Furosemide (Lasix) 40 mg PO DAILY-[facility] Heparin Sodium (Porcine) (Heparin) 5,000 units SC BID [facility] Last Admin: 11/02/17 20:29 Dose: 5,000 units Ceftriaxone Sodium 2 gm/ (Sodium Chloride) 100 mls @ 200 mls/hr IVPB Q24HR [facility] Last Admin: 11/02/17 13:18 Dose: 100 mls Dextrose/Water (D5w) 1,000 mls @ 50 mls/hr IV .Q20H [facility] Last Admin: 11/02/17 15:19 Dose: Not Given Multivitamins (Multivit, Chewable Sf) 1 tab PO DAILY [facility] Last Admin: 11/02/17 09:41 Dose: 1 tab Ondansetron HCl (Zofran Odt) 4 mg PO Q6H PRN PRN Reason: Nausea/Vomiting Last Admin: 10/23/17 12:04 Dose: 4 mg Ondansetron HCl (Zofran) 4 mg IVP Q6H PRN PRN Reason: Nausea/Vomiting Pantoprazole Sodium (Protonix) 40 mg PO DAILY [facility] Last Admin: 11/02/17 09:41 Dose: 40 mg Sodium Chloride (Flush - Normal Saline) 10 ml IVF Q12HR [facility] Last Admin: 11/02/17 20:29 Dose: Not Given Sodium Chloride (Flush - Normal Saline) 10 ml IVF PRN PRN PRN Reason: Saline Flush
[2017-11-03 05:44] LABS: Anion Gap 11 mmol/L (10-20); BUN (Urea Nitrogen) 53 mg/dL (8.4-25.7); Calc. Creatinine Clearance 110 mL/min (70-130); Calcium 10.3 mg/dL (7.8-10.44); Carbon Dioxide 24 mmol/L (23-31); Chloride 112 mmol/L (98-107); Estimated GFR-MDRD 74
[2017-11-03] MEDS: Albuterol Sulfate 1.25 MG/3 ML NEB EZPAP SCH ×4 (06:28→18:37)
[2017-11-03] MEDS: Budesonide 0.5 MG/2 ML NEB INH SCH ×2 (06:28→18:39)
[2017-11-03] MEDS: Arformoterol 15 MCG/2 ML NEB NEB SCH ×2 (06:38→18:39)
[2017-11-03] MEDS: Carvedilol 3.125 MG TAB PO SCH ×2 (08:19→21:12)
[2017-11-03] MEDS: Furosemide 40 MG TAB PO SCH (08:19)
[2017-11-03] MEDS: Docusate 100 MG CAP PO SCH ×2 (08:20→21:12)
[2017-11-03] MEDS: Heparin 5,000 UNITS/ML VIAL SC SCH ×2 (08:20→21:12)
[2017-11-03] MEDS: Multivit, Chewable SF 1 TAB PO SCH (08:20)
[2017-11-03] MEDS: Dexamethasone 1 MG TAB PO SCH (10:11)
--- NOTE | 2017-11-03 10:45 | PRG ---
DATE OF SERVICE: 11/03/2017 He is still bothered by his arthritic symptoms, his breathing is better. PHYSICAL EXAMINATION: VITAL SIGNS: Temperature 97.7, pulse 70, respirations 18, O2 sat 97%, blood pressure 142/74. HEENT: Unremarkable. NECK: No JVD. CHEST: Fairly clear without rhonchi. CARDIAC: S1 and S2 regular. ABDOMEN: Soft, nontender. EXTREMITIES: Bruising over his legs. LABORATORY DATA: Sodium 142, potassium 4.5, chloride 112, CO2 24, BUN 53, creatinine 1.0, glucose 10 3. ASSESSMENT: 1. Sleep apnea, currently stable. 2. Hand infection. 3. History of asthma. PLAN: Mainly a rehab issue at this point. Duration of antibiotics to be determined by Dr. Cloeman. Luis ennis is stable from a pulmonary standpoint for transfer to the next level of care.
[2017-11-03] MEDS: cefTRIAXone\\ROCEPHIN 2 GM in Sodium Chloride 0.9% 100 ML IVPB SCH (13:08)
--- NOTE | 2017-11-03 17:37 | PDOC.CTH ---
Cardiology Progress Note - Subjective His breathing is a little more laboured today. No other issues. - Objective Vital Signs Temp Pulse Pulse Pulse Resp BP BP 11/03/17 14:55 97.4 F L 91 16 11/03/17 13:46 75 18 11/03/17 11:48 97.6 F 87 16 11/03/17 11:15 88 87 146/66 H 144/65 H 11/03/17 09:33 71 18 11/03/17 08:00 97.5 F L 79 17 11/03/17 06:38 78 18 11/03/17 06:28 78 18 BP Pulse Ox Pulse Ox Pulse Ox 11/03/17 14:55 123/57 L 97 11/03/17 13:46 96 11/03/17 11:48 120/51 L 98 11/03/17 11:15 98 98 11/03/17 09:33 97 11/03/17 08:00 97 11/03/17 06:38 96 11/03/17 06:28 96 Admit Weight 250 lb 1.6 oz Weight 254 lb 8 oz 11/02/17 11/03/17 11/04/17 06:59 06:59 06:59 Intake Total 2465 2251 Output Total 1975 1100 Balance 490 1151 - Physical Examination General/Neuro: alert & oriented x3, NAD Neck: no JVD present Lungs: unlabored respirations Heart: RRR Abdomen: NT/ND Extremities: + edema B (Trace) - Telemetry Telemetry Rhythm: A paced. - Labs Result Diagrams: 11/02/17 05:57 11/03/17 05:15 Troponin/CKMB CK-MB (CK-2) 0.9 ng/mL (0-6.6) 10/21/17 11:00 Troponin I 0.073 ng/mL (< 0.028) H 10/21/17 14:00 - Assessment/Plan 1. Acute on chronic systolic and diastolic heart failure 2. Synovitis of the wrist and 5th finger. 3. CAD, stable 4. Rheumatoid arthritis, on Rituxamab 5. 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 6. Sepsis. PLAN: - Would treat medically for possible endocarditis. - Will need AV replacement once bloodstream is sterile. - TAVR once infection cleared. - Continue Lasix PO. - Judicious use of fluids due to severe AI.
--- NOTE | 2017-11-03 23:17 | PDOC.PN ---
- Subjective Encounter Start Date: 11/03/17 Encounter Start Time: 17:30 Patient seen and examined. No new complaints. No overnight events. No CP/SOB - Objective Resuscitation Status: Resuscitation Status FULL:Full Resuscitation MAR Reviewed: Yes Vital Signs & Weight: Vital Signs (12 hours) Temp Pulse Resp BP Pulse Ox 11/03/17 19:00 97.6 F 91 20 146/65 H 95 11/03/17 18:37 79 16 97 11/03/17 14:55 97.4 F L 91 16 123/57 L 97 11/03/17 13:46 75 18 96 11/03/17 11:48 97.6 F 87 16 120/51 L 98 Weight Admit Weight 250 lb 1.6 oz Weight 254 lb 8 oz Most Recent Monitor Data Heart Rate from ECG 76 NIBP 111/45 NIBP BP-Mean 51 Respiration from ECG 16 SpO2 99 I&O: 11/02/17 11/03/17 11/04/17 06:59 06:59 06:59 Intake Total 2465 2251 1340 Output Total 1975 1100 Balance 490 1151 1340 Result Diagrams: 11/02/17 05:57 11/03/17 05:15 EKG Reviewed by me: Yes (Tele paced) Phys Exam - Physical Examination Constitutional: NAD Respiratory: no wheezing, no rhonchi Cardiovascular: RRR, no rub Gastrointestinal: soft, non-tender, positive bowel sounds Neurological: moves all 4 limbs Dx/Plan - Plan DVT proph w/heparin, DVT proph w/SCDs IMPRESSION: 1. Acute on Chronic systolic/diastolic HF exacerbation - improving - on PO Lasix 2. Hyperkalemia - resolved 3. Sepsis with acute organ dysfunction due to staph synovitis of left hand/ wrist s/p I&D - on Atbx 4. s/p Resp failure requiring NIPPV 5. Obesity BMI 35/Elevated trop due to CHF/ CKD 3/ CRISTINA-resolved/HTN/RA on immunosuppressant/CAD s/p CABG-stent/NILESH/Mild intermittent Asthma/GERD/Severe AI with ?endocarditis/NILESH on CPAP/hypokalemia PLAN: * Cont Atbx * AM labs * Cardio/ID following * Duration of Atbx to be confirmed with Dr Coleman Review of Systems - Review of Systems Respiratory: negative: Cough, Dry, Shortness of Breath, Hemoptysis, SOB with Excertion, Pleuritic Pain, Sputum, Wheezing Cardiovascular: negative: Chest Pain, Palpitations, Orthopnea, Paroxysmal Noc. Dyspnea, Edema, Light Headedness - Medications/Allergies Allergies/Adverse Reactions: Allergies Allergy/AdvReac Type Severity Reaction Status Date / Time morphine Allergy Verified 06/28/17 16:03 Medications: Current Medications Acetaminophen (Tylenol) 650 mg PO Q4H PRN PRN Reason: Headache/Fever or Pain Last Admin: 10/28/17 07:14 Dose: 650 mg Hydrocodone Bitart/Acetaminophen ([place] 10/325) 2 tab PO Q4H PRN PRN Reason: Pain 2ND LINE Last Admin: 10/24/17 19:37 Dose: 2 tab Albuterol Sulfate (Albuterol Sulfate) 1.25 mg EZPAP [id number] SCH Last Admin: 11/03/17 18:37 Dose: 1.25 mg Albuterol/Ipratropium (Duoneb) 3 ml NEB Q4H PRN PRN Reason: SOB &/or Wheezing Last Admin: 10/22/17 23:06 Dose: 3 ml Arformoterol Tartrate (Brovana) 15 mcg NEB BID-RT [facility] Last Admin: 11/03/17 18:39 Dose: 15 mcg Bisacodyl (Dulcolax) 10 mg PO DAILYPRN PRN PRN Reason: Constipation Last Admin: 10/26/17 08:29 Dose: 10 mg Budesonide (Pulmicort Neb Solution) 0.5 mg INH BID-RT [facility] Last Admin: 11/03/17 18:39 Dose: 0.5 mg Carvedilol (Coreg) 3.125 mg PO BID [facility] Last Admin: 11/03/17 21:12 Dose: 3.125 mg Dexamethasone (Decadron) 2 mg PO DAILY [facility] Last Admin: 11/03/17 10:11 Dose: 2 mg Docusate Sodium (Colace) 100 mg PO BID [facility] Last Admin: 11/03/17 21:12 Dose: Not Given Furosemide (Lasix) 40 mg PO DAILY-[facility] Last Admin: 11/03/17 08:19 Dose: 40 mg Heparin Sodium (Porcine) (Heparin) 5,000 units SC BID [facility] Last Admin: 11/03/17 21:12 Dose: 5,000 units Ceftriaxone Sodium 2 gm/ (Sodium Chloride) 100 mls @ 200 mls/hr IVPB Q24HR [facility] Last Admin: 11/03/17 13:08 Dose: 100 mls Multivitamins (Multivit, Chewable Sf) 1 tab PO DAILY [facility] Last Admin: 11/03/17 08:20 Dose: 1 tab Ondansetron HCl (Zofran Odt) 4 mg PO Q6H PRN PRN Reason: Nausea/Vomiting Last Admin: 10/23/17 12:04 Dose: 4 mg Ondansetron HCl (Zofran) 4 mg IVP Q6H PRN PRN Reason: Nausea/Vomiting Pantoprazole Sodium (Protonix) 40 mg PO DAILY [facility] Last Admin: 11/03/17 08:20 Dose: 40 mg Sodium Chloride (Flush - Normal Saline) 10 ml IVF Q12HR [facility] Last Admin: 11/03/17 21:18 Dose: Not Given Sodium Chloride (Flush - Normal Saline) 10 ml IVF PRN PRN PRN Reason: Saline Flush
[2017-11-04 05:27] LABS: Anion Gap 9 mmol/L (10-20); BUN (Urea Nitrogen) 43 mg/dL (8.4-25.7); Calc. Creatinine Clearance 124 mL/min (70-130); Calcium 10.5 mg/dL (7.8-10.44); Carbon Dioxide 28 mmol/L (23-31); Chloride 109 mmol/L (98-107); Estimated GFR-MDRD 85; Magnesium 1.6 mg/dL (1.6-2.6)
[2017-11-04 05:58] LABS: Phosphorus 1.7 mg/dL (2.3-4.7)
[2017-11-04 06:02] LABS: Hematocrit 31.5 % (42.0-52.0); Mean Platelet Volume 7.5 fL (7.4-10.4); Metamyelocyte 1 % (0-0); Myelocyte 1 % (0-0); Neutrophil 81 % (42-75); Red Blood Cell (RBC) Count 3.27 mill/uL (4.70-6.10); White Blood Cell (WBC) Count 7.3 thou/uL (4.8-10.8)
[2017-11-04] MEDS: Albuterol Sulfate 1.25 MG/3 ML NEB EZPAP SCH ×4 (06:55→19:22)
[2017-11-04] MEDS: Budesonide 0.5 MG/2 ML NEB INH SCH ×2 (06:55→19:22)
[2017-11-04] MEDS: Arformoterol 15 MCG/2 ML NEB NEB SCH ×2 (07:03→19:19)
[2017-11-04] MEDS: Furosemide 40 MG TAB PO SCH (08:42)
[2017-11-04] MEDS: Carvedilol 3.125 MG TAB PO SCH ×2 (08:42→21:36)
[2017-11-04] MEDS: Docusate 100 MG CAP PO SCH ×2 (08:43→21:36)
[2017-11-04] MEDS: Heparin 5,000 UNITS/ML VIAL SC SCH ×2 (08:43→21:36)
[2017-11-04] MEDS: Multivit, Chewable SF 1 TAB PO SCH (08:44)
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
[2017-11-04] MEDS: Dexamethasone 1 MG TAB PO SCH (10:00)
--- NOTE | 2017-11-04 12:02 | PDOC.PN ---
- Subjective Encounter Start Date: 11/04/17 Encounter Start Time: 07:30 Subjective: no sob, feels better -: has not amb yet - Objective Resuscitation Status: Resuscitation Status FULL:Full Resuscitation MAR Reviewed: Yes Vital Signs & Weight: Vital Signs (12 hours) Temp Pulse Resp BP Pulse Ox 11/04/17 10:57 90 16 11/04/17 07:46 97.9 F 94 18 142/64 H 97 11/04/17 04:00 97.1 F L 93 18 148/68 H 95 Weight Admit Weight 250 lb 1.6 oz Weight 251 lb Most Recent Monitor Data Heart Rate from ECG 76 NIBP 111/45 NIBP BP-Mean 51 Respiration from ECG 16 SpO2 99 I&O: 11/03/17 11/04/17 11/05/17 06:59 06:59 06:59 Intake Total 2251 1580 Output Total 1100 Balance 1151 1580 Result Diagrams: 11/04/17 04:35 11/04/17 04:35 Phys Exam - Physical Examination HEENT: PERRLA, moist MMs Neck: no JVD, supple Respiratory: no wheezing, no rales Cardiovascular: RRR, no significant murmur Gastrointestinal: soft, non-tender, positive bowel sounds Musculoskeletal: pulses present, edema present Neurological: non-focal, moves all 4 limbs Dx/Plan (1) Cellulitis and abscess of hand Code(s): L03.119 - CELLULITIS OF UNSPECIFIED PART OF LIMB; L02.519 - CUTANEOUS ABSCESS OF UNSPECIFIED HAND Status: Acute Comment: Growing back MSSA from 2 wound cultures (2) Sepsis Code(s): A41.9 - SEPSIS, UNSPECIFIED ORGANISM Status: Acute Qualifiers: Sepsis type: methicillin susceptible Staphylococcus aureus Qualified Code(s ): A41.01 - Sepsis due to Methicillin susceptible Staphylococcus aureus (3) Aortic insufficiency Code(s): I35.1 - NONRHEUMATIC AORTIC (VALVE) INSUFFICIENCY Status: Chronic Qualifiers: Cardiac valve disease etiology: nonrheumatic Qualified Code(s): I35.1 - Nonrheumatic aortic (valve) insufficiency (4) CAD (coronary artery disease) Code(s): I25.10 - ATHSCL HEART DISEASE OF [place] CORONARY ARTERY W/O ANG PCTRS Status: Chronic Qualifiers: Coronary Disease-Associated Artery/Lesion type: [place] artery [place] vs. transplanted heart: [place] heart Associated angina: without angina Qualified Code(s): I25.10 - Atherosclerotic heart disease of [place] coronary artery without angina pectoris (5) Acute on chronic renal failure Code(s): N17.9 - ACUTE KIDNEY FAILURE, UNSPECIFIED; N18.9 - CHRONIC KIDNEY DISEASE, UNSPECIFIED Status: Acute Qualifiers: Chronic kidney disease stage: stage 3 (moderate) Comment: resolving (6) CHF (congestive heart failure) Code(s): I50.9 - HEART FAILURE, UNSPECIFIED Status: Acute Qualifiers: Congestive heart failure type: combined Comment: ef of 45% (7) Anemia, normocytic normochromic Code(s): D64.9 - ANEMIA, UNSPECIFIED Status: Chronic Comment: chronic, stable (8) COPD (chronic obstructive pulmonary disease) Status: Chronic Qualifiers: COPD type: chronic bronchitis (9) Essential hypertension Code(s): I10 - ESSENTIAL (PRIMARY) HYPERTENSION Status: Chronic (10) NILESH (obstructive sleep apnea) Code(s): G47.33 - OBSTRUCTIVE SLEEP APNEA (ADULT) (PEDIATRIC) Status: Chronic Comment: CPAP at night (11) Obesity (BMI 30-39.9) Code(s): E66.9 - OBESITY, UNSPECIFIED Status: Chronic (12) Physical deconditioning Code(s): R53.81 - OTHER MALAISE Status: Chronic (13) Rheumatoid arthritis Code(s): M06.9 - RHEUMATOID ARTHRITIS, UNSPECIFIED Status: Chronic Qualifiers: Rheumatoid arthritis location: multiple sites Comment: On Rituxamab - Plan may tx to med or med/surg if ok with cardiology -: is on ceftriaxone 2g daily -: lasix 40mg po daily -: decadron 1.5mg daily for adrenal insuff -: has severe deconditioning and is awaiting placement, wound care * . Review of Systems - Medications/Allergies Allergies/Adverse Reactions: Allergies Allergy/AdvReac Type Severity Reaction Status Date / Time morphine Allergy Verified 06/28/17 16:03 Medications: Current Medications Acetaminophen (Tylenol) 650 mg PO Q4H PRN PRN Reason: Headache/Fever or Pain Last Admin: 10/28/17 07:14 Dose: 650 mg Hydrocodone Bitart/Acetaminophen ([place] 10/325) 2 tab PO Q4H PRN PRN Reason: Pain 2ND LINE Last Admin: 10/24/17 19:37 Dose: 2 tab Albuterol Sulfate (Albuterol Sulfate) 1.25 mg EZPAP [id number] [facility] Last Admin: 11/04/17 10:57 Dose: 1.25 mg Albuterol/Ipratropium (Duoneb) 3 ml NEB Q4H PRN PRN Reason: SOB &/or Wheezing Last Admin: 10/22/17 23:06 Dose: 3 ml Arformoterol Tartrate (Brovana) 15 mcg NEB BID-RT [facility] Last Admin: 11/04/17 07:03 Dose: 15 mcg Bisacodyl (Dulcolax) 10 mg PO DAILYPRN PRN PRN Reason: Constipation Last Admin: 10/26/17 08:29 Dose: 10 mg Budesonide (Pulmicort Neb Solution) 0.5 mg INH BID-RT [facility] Last Admin: 11/04/17 06:55 Dose: 0.5 mg Carvedilol (Coreg) 3.125 mg PO BID [facility] Last Admin: 11/04/17 08:42 Dose: 3.125 mg Dexamethasone (Decadron) 1.5 mg PO DAILY [facility] Docusate Sodium (Colace) 100 mg PO BID [facility] Last Admin: 11/04/17 08:43 Dose: Not Given Furosemide (Lasix) 40 mg PO DAILY-AC [facility] Last Admin: 11/04/17 08:42 Dose: 40 mg Heparin Sodium (Porcine) (Heparin) 5,000 units SC BID [facility] Last Admin: 11/04/17 08:43 Dose: 5,000 units Ceftriaxone Sodium 2 gm/ (Sodium Chloride) 100 mls @ 200 mls/hr IVPB Q24HR [facility] Last Admin: 11/03/17 13:08 Dose: 100 mls Multivitamins (Multivit, Chewable Sf) 1 tab PO DAILY [facility] Last Admin: 11/04/17 08:44 Dose: 1 tab Ondansetron HCl (Zofran Odt) 4 mg PO Q6H PRN PRN Reason: Nausea/Vomiting Last Admin: 10/23/17 12:04 Dose: 4 mg Ondansetron HCl (Zofran) 4 mg IVP Q6H PRN PRN Reason: Nausea/Vomiting Pantoprazole Sodium (Protonix) 40 mg PO DAILY [facility] Last Admin: 11/04/17 08:44 Dose: 40 mg Sodium Chloride (Flush - Normal Saline) 10 ml IVF Q12HR [facility] Last Admin: 11/04/17 08:44 Dose: 10 ml Sodium Chloride (Flush - Normal Saline) 10 ml IVF PRN PRN PRN Reason: Saline Flush
[2017-11-04] MEDS ORDERED: Colchicine 0.6 MG TAB PO SCH ×2 (12:15→12:30)
[2017-11-04 13:47] VITALS: BMI 34.9
[2017-11-04] MEDS: cefTRIAXone\\ROCEPHIN 2 GM in Sodium Chloride 0.9% 100 ML IVPB SCH (13:54)
--- NOTE | 2017-11-04 17:06 | PDOC.CTH ---
Cardiology Progress Note - Subjective He is doing better. Suspicion now for infection on his right hand. - Objective Vital Signs Temp Pulse Pulse Pulse Resp BP BP 11/04/17 15:23 98.1 F 103 H 18 11/04/17 13:58 90 14 11/04/17 12:00 98.2 F 100 20 11/04/17 10:57 90 16 11/04/17 09:33 93 91 143/65 H 142/64 H 11/04/17 07:46 97.9 F 94 18 11/04/17 07:45 97.9 F 90 16 BP Pulse Ox Pulse Ox Pulse Ox 11/04/17 15:23 124/60 95 11/04/17 13:58 11/04/17 12:00 123/55 L 97 11/04/17 10:57 11/04/17 09:33 97 97 11/04/17 07:46 142/64 H 97 11/04/17 07:45 97 Admit Weight 250 lb 1.6 oz Weight 251 lb 11/03/17 11/04/17 11/05/17 06:59 06:59 06:59 Intake Total 2251 1580 Output Total 1100 Balance 1151 1580 - Physical Examination General/Neuro: alert & oriented x3, NAD Neck: no JVD present Lungs: unlabored respirations Heart: RRR Abdomen: NT/ND Extremities: + edema B (1+) - Telemetry Telemetry Rhythm: A paced - Labs Result Diagrams: 11/04/17 04:35 11/04/17 04:35 Troponin/CKMB CK-MB (CK-2) 0.9 ng/mL (0-6.6) 10/21/17 11:00 Troponin I 0.073 ng/mL (< 0.028) H 10/21/17 14:00 - Assessment/Plan 1. Acute on chronic systolic and diastolic heart failure 2. Synovitis of the wrist and 5th finger. 3. CAD, stable 4. Rheumatoid arthritis, on Rituxamab 5. 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 6. Sepsis. PLAN: - AVR in the future. - Continue Abx per ID. - Judicious use of fluids.
[2017-11-04] MEDS ORDERED: DILTIAZEM HCL 180 MG PO SCH (21:00)
--- NOTE | 2017-11-04 21:24 | PRG ---
DATE OF SERVICE: 11/04/2017 SUBJECTIVE: Has developed severe pain in the proximal interphalangeal joints of left hand of the sec ond and fourth digits. Similar pain in the right hand, also on the left foot second digit distal int erphalangeal joint. Respiratory cervantes, he feels improved. No chest pain, no abdominal pain or diarrh ea, no genitourinary symptoms. The wrist area feels actually improved. OBJECTIVE: VITAL SIGNS: Showed normal temperature, blood pressure 120/60, pulse 103, respirations 18, O2 sat 95 %. GENERAL: Quite alert and oriented. HEENT: Ocular movements are conjugate. Oral cavity is moist. LUNGS: Symmetric air entry. HEART: S1 and S2 regular rate. EXTREMITIES: Left hand with areas of erythema around the PIPs of the second and fourth fingers. Sim ilar findings in the distal interphalangeal joint second toe left foot. The incision in the volar as pect of the left wrist still with stitches, but no erythema. Significant reduction in swelling and t enderness. LABORATORY DATA: White cell count 7.3, hemoglobin 10.1, platelets 263, creatinine 0.88. Uric acid w as 11.3 on 10/28/2017. ASSESSMENT: Rheumatoid arthritis, on TNF inhibitor with inflammatory process in the left hand second jn to methicillin-susceptible Staphylococcus aureus infection status post-surgical debridement. DISCUSSION: The patient had some issues with his respiratory status associated with hypoventilation with hypercapnia and now he is back on the floor and has developed this area of joint inflammatory ac tivity in small joints of hands and feet. The most likely scenario is recrudescence of his gout and he has been already placed on colchicine. X-rays to be performed tomorrow. It is unlikely that this represents an infectious complication since his original process adequately controlled with Rocephin . 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
[2017-11-05] MEDS: Arformoterol 15 MCG/2 ML NEB NEB SCH ×2 (07:28→22:21)
[2017-11-05] MEDS: Budesonide 0.5 MG/2 ML NEB INH SCH ×2 (07:32→22:21)
[2017-11-05] MEDS: Albuterol Sulfate 1.25 MG/3 ML NEB EZPAP SCH ×4 (07:33→22:20)
[2017-11-05] MEDS: Docusate 100 MG CAP PO SCH ×2 (08:28→21:00)
[2017-11-05] MEDS: Dexamethasone 1 MG TAB PO SCH (08:32)
[2017-11-05] MEDS: Folic Acid 1 MG TAB PO SCH (08:32)
[2017-11-05] MEDS: Furosemide 40 MG TAB PO SCH (08:32)
[2017-11-05] MEDS: Carvedilol 3.125 MG TAB PO SCH ×2 (08:32→21:00)
[2017-11-05] MEDS: Heparin 5,000 UNITS/ML VIAL SC SCH ×2 (08:33→21:00)
[2017-11-05] MEDS: Pregabalin 50 MG CAP PO SCH (08:33)
[2017-11-05] MEDS: Multivit, Chewable SF 1 TAB PO SCH (08:33)
[2017-11-05] MEDS: Febuxostat [Uloric] 40 MG PO SCH ×2 (08:33)
[2017-11-05] MEDS: Hydroxychloroquine Sulfate 200 MG TAB PO SCH (08:33)
--- NOTE | 2017-11-05 08:51 | PRG ---
DATE OF SERVICE: 11/05/2017 SUBJECTIVE: Mr. Bhat says he is about the same. He is discouraged by his lack of improvement i n terms of mobility. PHYSICAL EXAMINATION: VITAL SIGNS: Temperature is 97.9, pulse 83, respirations 16, O2 saturation 97%, blood pressure 145/6 7. HEENT: Unremarkable. NECK: No JVD. LUNGS: Clear. CARDIAC: S1 and S2 regular. ABDOMEN: Soft and nontender. EXTREMITIES: Swelling in his left fourth finger and rheumatoid changes throughout hands and feet. LABORATORY DATA: No new labs were obtained today. ASSESSMENT: 1. Status post debridement of soft tissue infection of his hand. 2. Relative adrenal insufficiency. 3. Severe rheumatoid arthritis. 4. Gout versus pseudogout. PLAN: He is back on his baseline dexamethasone dose as there are no further pulmonary issues. He is stable on sleep apnea, using his CPAP at night. Dr. Noguera will be available this weekend if any help needed.
[2017-11-05] MEDS ORDERED: FOLIC ACID 800 MG PO SCH (09:00)
[2017-11-05] MEDS ORDERED: FEBUXOSTAT 40 MG PO SCH (09:00)
[2017-11-05] MEDS ORDERED: Non-Formulary Item 1 EACH (Cholecalciferol (Vitamin D3) [Vitamin D3] 1,000 UNIT) PO SCH (09:00)
[2017-11-05] MEDS: HYDROcodone/Acetaminophen 10/325 mg Tablet PO PRN (09:19)
[2017-11-05] MEDS: Dextrose 5 %-0.45 % NaCl 1,000 ML IV SCH (12:14)
--- NOTE | 2017-11-05 12:15 | PDOC.PN ---
- Subjective Encounter Start Date: 11/05/17 Encounter Start Time: 07:15 Subjective: no sob or palp - Objective Resuscitation Status: Resuscitation Status FULL:Full Resuscitation MAR Reviewed: Yes Vital Signs & Weight: Vital Signs (12 hours) Temp Pulse Resp BP Pulse Ox 11/05/17 11:36 98.5 F 83 18 102/55 L 94 L 11/05/17 10:29 93 16 93 L 11/05/17 07:33 83 16 97 11/05/17 07:32 83 16 97 11/05/17 07:28 83 16 97 11/05/17 07:05 97.9 F 87 20 145/67 H 98 11/05/17 04:00 97.9 F 78 18 147/67 H 100 Weight Admit Weight 250 lb 1.6 oz Weight 239 lb Most Recent Monitor Data Heart Rate from ECG 76 NIBP 111/45 NIBP BP-Mean 51 Respiration from ECG 16 SpO2 99 I&O: 11/04/17 11/05/17 11/06/17 06:59 06:59 06:59 Intake Total 1580 670 Balance 1580 670 Result Diagrams: 11/04/17 04:35 11/04/17 04:35 Phys Exam - Physical Examination HEENT: PERRLA, moist MMs Neck: no JVD, supple Respiratory: no wheezing, no rales Cardiovascular: RRR, no significant murmur Gastrointestinal: soft, non-tender, positive bowel sounds Musculoskeletal: pulses present, edema present Neurological: non-focal, moves all 4 limbs Psychiatric: A&O x 3 Dx/Plan (1) Cellulitis and abscess of hand Code(s): L03.119 - CELLULITIS OF UNSPECIFIED PART OF LIMB; L02.519 - CUTANEOUS ABSCESS OF UNSPECIFIED HAND Status: Acute Comment: Growing back MSSA from 2 wound cultures (2) Sepsis Code(s): A41.9 - SEPSIS, UNSPECIFIED ORGANISM Status: Acute Qualifiers: Sepsis type: methicillin susceptible Staphylococcus aureus Qualified Code(s ): A41.01 - Sepsis due to Methicillin susceptible Staphylococcus aureus (3) Aortic insufficiency Code(s): I35.1 - NONRHEUMATIC AORTIC (VALVE) INSUFFICIENCY Status: Chronic Qualifiers: Cardiac valve disease etiology: nonrheumatic Qualified Code(s): I35.1 - Nonrheumatic aortic (valve) insufficiency (4) CAD (coronary artery disease) Code(s): I25.10 - ATHSCL HEART DISEASE OF [place] CORONARY ARTERY W/O ANG PCTRS Status: Chronic Qualifiers: Coronary Disease-Associated Artery/Lesion type: [place] artery [place] vs. transplanted heart: [place] heart Associated angina: without angina Qualified Code(s): I25.10 - Atherosclerotic heart disease of [place] coronary artery without angina pectoris (5) Acute on chronic renal failure Code(s): N17.9 - ACUTE KIDNEY FAILURE, UNSPECIFIED; N18.9 - CHRONIC KIDNEY DISEASE, UNSPECIFIED Status: Acute Qualifiers: Chronic kidney disease stage: stage 3 (moderate) Comment: resolving (6) CHF (congestive heart failure) Code(s): I50.9 - HEART FAILURE, UNSPECIFIED Status: Acute Qualifiers: Congestive heart failure type: combined Comment: ef of 45% (7) Anemia, normocytic normochromic Code(s): D64.9 - ANEMIA, UNSPECIFIED Status: Chronic Comment: chronic, stable (8) COPD (chronic obstructive pulmonary disease) Status: Chronic Qualifiers: COPD type: chronic bronchitis (9) Essential hypertension Code(s): I10 - ESSENTIAL (PRIMARY) HYPERTENSION Status: Chronic (10) NILESH (obstructive sleep apnea) Code(s): G47.33 - OBSTRUCTIVE SLEEP APNEA (ADULT) (PEDIATRIC) Status: Chronic Comment: CPAP at night (11) Obesity (BMI 30-39.9) Code(s): E66.9 - OBESITY, UNSPECIFIED Status: Chronic (12) Physical deconditioning Code(s): R53.81 - OTHER MALAISE Status: Chronic (13) Rheumatoid arthritis Code(s): M06.9 - RHEUMATOID ARTHRITIS, UNSPECIFIED Status: Chronic Qualifiers: Rheumatoid arthritis location: multiple sites Comment: On Rituxamab - Plan transfer pt to med floor -: is on cardizem cd with hr around 80-100, mostly paced -: is on ceftriaxone -: will add lyrica, is already on colchicine -: cardiac rehab to mobilize more * . Review of Systems - Medications/Allergies Allergies/Adverse Reactions: Allergies Allergy/AdvReac Type Severity Reaction Status Date / Time morphine Allergy Verified 06/28/17 16:03 Medications: Current Medications Acetaminophen (Tylenol) 650 mg PO Q4H PRN PRN Reason: Headache/Fever or Pain Last Admin: 10/28/17 07:14 Dose: 650 mg Hydrocodone Bitart/Acetaminophen ([place] 10/325) 2 tab PO Q4H PRN PRN Reason: Pain 2ND LINE Last Admin: 11/05/17 09:19 Dose: 2 tab Albuterol Sulfate (Albuterol Sulfate) 1.25 mg EZPAP [id number] SCH Last Admin: 11/05/17 10:29 Dose: 1.25 mg Albuterol/Ipratropium (Duoneb) 3 ml NEB Q4H PRN PRN Reason: SOB &/or Wheezing Last Admin: 10/22/17 23:06 Dose: 3 ml Arformoterol Tartrate (Brovana) 15 mcg NEB BID-RT [facility] Last Admin: 11/05/17 07:28 Dose: 15 mcg Aspirin (Aspirin Chewable) 81 mg PO DAILY [facility] Last Admin: 11/05/17 08:32 Dose: 81 mg Bisacodyl (Dulcolax) 10 mg PO DAILYPRN PRN PRN Reason: Constipation Last Admin: 10/26/17 08:29 Dose: 10 mg Budesonide (Pulmicort Neb Solution) 0.5 mg INH BID-RT [facility] Last Admin: 11/05/17 07:32 Dose: 0.5 mg Carvedilol (Coreg) 3.125 mg PO BID [facility] Last Admin: 11/05/17 08:32 Dose: 3.125 mg Cholecalciferol (Vitamin D3) 1,000 units PO DAILY [facility] Last Admin: 11/05/17 08:32 Dose: 1,000 units Colchicine (Colcrys) 0.6 mg PO ASDIR [facility] Dexamethasone (Decadron) 1.5 mg PO DAILY [facility] Last Admin: 11/05/17 08:32 Dose: 1.5 mg Diltiazem HCl (Cardizem Cd) 180 mg PO BID [facility] Last Admin: 11/05/17 08:32 Dose: 180 mg Docusate Sodium (Colace) 100 mg PO BID [facility] Last Admin: 11/05/17 08:28 Dose: Not Given Folic Acid (Folvite) 1 mg PO DAILY [facility] Last Admin: 11/05/17 08:32 Dose: 1 mg Furosemide (Lasix) 40 mg PO DAILY-AC [facility] Last Admin: 11/05/17 08:32 Dose: 40 mg Heparin Sodium (Porcine) (Heparin) 5,000 units SC BID [facility] Last Admin: 11/05/17 08:33 Dose: 5,000 units Hydroxychloroquine Sulfate (Plaquenil) 200 mg PO DAILY [facility] Last Admin: 11/05/17 08:33 Dose: 200 mg Ceftriaxone Sodium 2 gm/ (Sodium Chloride) 100 mls @ 200 mls/hr IVPB Q24HR [facility] Last Admin: 11/04/17 13:54 Dose: 100 mls Dextrose/Sodium Chloride (D5 1/2 Ns) 1,000 mls @ 50 mls/hr IV .Q20H [facility] Multivitamins (Multivit, Chewable Sf) 1 tab PO DAILY [facility] Last Admin: 11/05/17 08:33 Dose: 1 tab Nystatin (Mycostatin Powder) 0 gm TOP BID [facility] Ondansetron HCl (Zofran Odt) 4 mg PO Q6H PRN PRN Reason: Nausea/Vomiting Last Admin: 10/23/17 12:04 Dose: 4 mg Ondansetron HCl (Zofran) 4 mg IVP Q6H PRN PRN Reason: Nausea/Vomiting Pantoprazole Sodium (Protonix) 40 mg PO DAILY [facility] Last Admin: 11/05/17 08:33 Dose: 40 mg Febuxostat [Uloric] (40 Mg) 0 each PO DAILY [facility] Last Admin: 11/05/17 08:33 Dose: 1 each Pregabalin (Lyrica) 50 mg PO BID [facility] Last Admin: 11/05/17 08:33 Dose: 50 mg Sodium Chloride (Flush - Normal Saline) 10 ml IVF Q12HR [facility] Last Admin: 11/05/17 08:35 Dose: 10 ml Sodium Chloride (Flush - Normal Saline) 10 ml IVF PRN PRN PRN Reason: Saline Flush
[2017-11-05] MEDS: cefTRIAXone\\ROCEPHIN 2 GM in Sodium Chloride 0.9% 100 ML IVPB SCH (14:17)
--- NOTE | 2017-11-05 14:29 | PDOC.CTH ---
Cardiology Progress Note - Subjective Plan on having surgery later today for his right hand. - Objective Vital Signs Temp Pulse Resp BP Pulse Ox 11/05/17 13:59 68 18 96 11/05/17 11:36 98.5 F 83 18 102/55 L 94 L 11/05/17 10:29 93 16 93 L 11/05/17 07:33 83 16 97 11/05/17 07:32 83 16 97 11/05/17 07:28 83 16 97 11/05/17 07:05 97.9 F 87 20 145/67 H 98 11/05/17 04:00 97.9 F 78 18 147/67 H 100 Admit Weight 250 lb 1.6 oz Weight 239 lb 11/04/17 11/05/17 11/06/17 06:59 06:59 06:59 Intake Total 1580 670 Balance 1580 670 - Physical Examination General/Neuro: alert & oriented x3, NAD Neck: no JVD present Lungs: CTA, unlabored respirations Heart: RRR Abdomen: NT/ND Extremities: other: (no edema) - Telemetry Telemetry Rhythm: A paced - Labs Result Diagrams: 11/04/17 04:35 11/04/17 04:35 Troponin/CKMB CK-MB (CK-2) 0.9 ng/mL (0-6.6) 10/21/17 11:00 Troponin I 0.073 ng/mL (< 0.028) H 10/21/17 14:00 - Assessment/Plan 1. Acute on chronic systolic and diastolic heart failure 2. Synovitis of the wrist and 5th finger. 3. CAD, stable 4. Rheumatoid arthritis, on Rituxamab 5. 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 6. Sepsis. PLAN: - AVR in the future. - Continue Abx per ID. - Judicious use of fluids post operatively due to severe AI.
[2017-11-05] MEDS ORDERED: PHENYLEPHRINE-NS 100 MCG/ML 10 ML SYRINGE ONE (15:31)
[2017-11-05] MEDS ORDERED: Propofol 200 MG/20 ML VIAL ONE (15:31)
[2017-11-05] MEDS ORDERED: Bupivacaine PF 0.5% 30 ML VIAL ONE (18:28)
[2017-11-05] MEDS ORDERED: Sodium Chloride 0.9% 20 ML ONE (18:29)
[2017-11-05] MEDS ORDERED: Betamet Acet/Betamet Na Ph 30 MG/5 ML VIAL ONE (18:29)
[2017-11-05] MEDS ORDERED: Bacitracin Zinc Ointment 30 gm TUBE ONE (18:29)
[2017-11-05] MEDS ORDERED: Ketamine 50 MG/ML VIAL ONE (19:03)
[2017-11-05] MEDS ORDERED: Fentanyl 100 MCG/2 ML VIAL ONE (19:03)
[2017-11-05] MEDS ORDERED: Propofol 500 MG/50 ML VIAL ONE (19:03)
[2017-11-05] MEDS ORDERED: Ondansetron HCl/PF 4 MG/2 ML Vial IVP PRN ×2 (20:21→21:04)
[2017-11-05] MEDS ORDERED: Promethazine HCl 25 MG/ML VIAL SLOW IVP PRN (21:04)
[2017-11-05] MEDS ORDERED: Promethazine HCl 25 MG/ML VIAL IM PRN (21:04)
[2017-11-05] MEDS ORDERED: HYDROmorphone 2 MG/ML VIAL SLOW IVP PRN (21:04)
[2017-11-05] MEDS ORDERED: Midazolam HCl 2 mg/2 ml Vial SLOW IVP PRN (21:05)
[2017-11-05] MEDS: Nystatin Powder 15 GM BOT TOP SCH (23:55)
[2017-11-06] MEDS: Pregabalin 50 MG CAP PO SCH ×3 (00:22→20:04)
[2017-11-06] MEDS: HYDROcodone/Acetaminophen 10/325 mg Tablet PO PRN ×2 (00:22→09:40)
[2017-11-06] MEDS ORDERED: HYDROcodone/Acetaminophen 7.5/325 mg Tablet PO PRN (06:56)
[2017-11-06] MEDS ORDERED: Morphine 4 MG/ML VIAL SLOW IVP PRN (07:01)
[2017-11-06] MEDS: Furosemide 40 MG TAB PO SCH (08:26)
--- NOTE | 2017-11-06 08:38 | OP ---
DATE OF PROCEDURE: 11/05/2017 PREOPERATIVE DIAGNOSES: 1. 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 2. Left palmar ring finger and long finger gouty tenosynovitis flexor digitorum profundus, superfici rosalind. POSTOPERATIVE DIAGNOSES AND FINDINGS: 1. 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 2. Left palmar ring finger and long finger gouty tenosynovitis with flexor digitorum profundus, supe rficialis with large amount of pasty gout consistency of [employer] type toothpaste, with blood sprinkle d throughout, found at each of the sites listed above when treated. PROCEDURES PERFORMED: 1. Left palmar hand ring finger flexor digitorum superficialis, flexor digitorum profundus radical flexor tenosynovectomy and flexor digitorum superficialis radical tenosynovectomy. A. Left long finger radical tenosynovectomy flexor digitorum profundus and radical flexor digitorum superficialis tenosynovectomy. 2. Left long finger and ring finger proximal phalangeal joint synovectomy, arthrotomy, and drainage of thick tophaceous gout. 3. Right small finger proximal interphalangeal joint arthrotomy with gouty synovectomy. SURGEON: William Worthy MD. [employer] PA[employer] MIXER OPERATOR: Delonte Bland. ESTIMATED BLOOD LOSS: 12 mL on the left and approximately 25 mL on the right. TOURNIQUET TIME: At the right arm, 4 minutes; at the left, 18 minutes. INDICATION: The patient with swollen hand and digits especially around the proximal phalangeal joint with subcutaneous thickening felt and after having debridements by myself and others, has been unabl e to clear all standards. For this reason, he had local anesthesia along with anesthesia, IV conscio us sedation. He then was prepped and draped and simultaneously both with tourniquet applied and we f irst approached the right where after exsanguination of limb we then, on the right side, made a small finger PIP joint arthrotomy, felt gout escape and the joint distention ended and we then elevated up the extensor mechanism gently, performed a radical PIP joint, right small finger arthrotomy and syno vectomy. We sent this to the lab for specimen. Then, we turned our attention to the primary problems where we performed at the right small finger PI P joint arthrotomy with gouty synovectomy. Then, it continued to appear that there was this thick wh ite substance in all sites and all sites listed above for procedure. There were 2 mucous and serocys tic encounters. The patient then had each joint that was opened and irrigated with the Pulsavac pres sure 3 liters normal saline as that had been done first on the right side and then sent the patient f or proximal interphalangeal joint therapy, we visualized some differences and we were able to reconci le all procedures for the best interest of the patient. ASSESSMENT AND RECOMMENDATIONS: The patient will be discharged on 11/06/2017. We will then have the patient prepare physically without complication at that time.
[2017-11-06] MEDS: Hydroxychloroquine Sulfate 200 MG TAB PO SCH (09:34)
[2017-11-06] MEDS: Multivit, Chewable SF 1 TAB PO SCH (09:34)
[2017-11-06] MEDS: Folic Acid 1 MG TAB PO SCH (09:35)
[2017-11-06] MEDS: Heparin 5,000 UNITS/ML VIAL SC SCH ×2 (09:35→20:09)
[2017-11-06] MEDS: Carvedilol 3.125 MG TAB PO SCH ×2 (09:35→20:05)
[2017-11-06] MEDS: Febuxostat [Uloric] 40 MG PO SCH ×2 (09:42)
[2017-11-06] MEDS: Albuterol Sulfate 1.25 MG/3 ML NEB EZPAP SCH ×4 (09:44→20:11)
[2017-11-06] MEDS: Nystatin Powder 15 GM BOT TOP SCH ×2 (09:46→20:11)
[2017-11-06] MEDS: Dexamethasone 1 MG TAB PO SCH (10:10)
[2017-11-06] MEDS: Docusate 100 MG CAP PO SCH ×2 (10:28→20:05)
--- NOTE | 2017-11-06 11:03 | PDOC.PN ---
- Subjective Encounter Start Date: 11/06/17 Encounter Start Time: 08:00 Subjective: no sob or palpitations -: is oriented well and speaking in full sentences - Objective Resuscitation Status: Resuscitation Status FULL:Full Resuscitation MAR Reviewed: Yes Vital Signs & Weight: Vital Signs (12 hours) Temp Pulse Resp BP Pulse Ox 11/06/17 08:05 97.6 F 62 17 96/40 L 94 L 11/06/17 08:00 97.6 F 62 17 94 L 11/06/17 04:00 97.9 F 74 18 139/70 99 11/06/17 00:00 73 18 142/65 H 98 11/05/17 23:08 98.4 F 72 18 96 Weight Admit Weight 250 lb 1.6 oz Weight 254 lb 14.4 oz Most Recent Monitor Data Heart Rate from ECG 76 NIBP 111/45 NIBP BP-Mean 51 Respiration from ECG 16 SpO2 99 I&O: 11/05/17 11/06/17 11/07/17 06:59 06:59 06:59 Intake Total 670 750 Balance 670 750 Result Diagrams: 11/04/17 04:35 11/04/17 04:35 Additional Labs: Accuchecks 11/06/17 06:15 POC Glucose 127 H Phys Exam - Physical Examination HEENT: PERRLA, sclera anicteric Neck: no JVD, supple Respiratory: no wheezing, no rales Cardiovascular: RRR, no significant murmur Gastrointestinal: soft, non-tender, positive bowel sounds Musculoskeletal: pulses present both hands in dressing Neurological: non-focal, moves all 4 limbs Psychiatric: A&O x 3 Dx/Plan (1) Cellulitis and abscess of hand Code(s): L03.119 - CELLULITIS OF UNSPECIFIED PART OF LIMB; L02.519 - CUTANEOUS ABSCESS OF UNSPECIFIED HAND Status: Acute Comment: Growing back MSSA from 2 wound cultures (2) Sepsis Code(s): A41.9 - SEPSIS, UNSPECIFIED ORGANISM Status: Acute Qualifiers: Sepsis type: methicillin susceptible Staphylococcus aureus Qualified Code(s ): A41.01 - Sepsis due to Methicillin susceptible Staphylococcus aureus (3) Aortic insufficiency Code(s): I35.1 - NONRHEUMATIC AORTIC (VALVE) INSUFFICIENCY Status: Chronic Qualifiers: Cardiac valve disease etiology: nonrheumatic Qualified Code(s): I35.1 - Nonrheumatic aortic (valve) insufficiency Comment: with suspected endocarditis (4) CAD (coronary artery disease) Code(s): I25.10 - ATHSCL HEART DISEASE OF [place] CORONARY ARTERY W/O ANG PCTRS Status: Chronic Qualifiers: Coronary Disease-Associated Artery/Lesion type: [place] artery [place] vs. transplanted heart: [place] heart Associated angina: without angina Qualified Code(s): I25.10 - Atherosclerotic heart disease of [place] coronary artery without angina pectoris (5) Acute on chronic renal failure Code(s): N17.9 - ACUTE KIDNEY FAILURE, UNSPECIFIED; N18.9 - CHRONIC KIDNEY DISEASE, UNSPECIFIED Status: Acute Qualifiers: Chronic kidney disease stage: stage 3 (moderate) Comment: resolving (6) CHF (congestive heart failure) Code(s): I50.9 - HEART FAILURE, UNSPECIFIED Status: Acute Qualifiers: Congestive heart failure type: combined Comment: ef of 45% (7) Anemia, normocytic normochromic Code(s): D64.9 - ANEMIA, UNSPECIFIED Status: Chronic Comment: chronic, stable (8) COPD (chronic obstructive pulmonary disease) Status: Chronic Qualifiers: COPD type: chronic bronchitis (9) Essential hypertension Code(s): I10 - ESSENTIAL (PRIMARY) HYPERTENSION Status: Chronic (10) NILESH (obstructive sleep apnea) Code(s): G47.33 - OBSTRUCTIVE SLEEP APNEA (ADULT) (PEDIATRIC) Status: Chronic Comment: CPAP at night (11) Obesity (BMI 30-39.9) Code(s): E66.9 - OBESITY, UNSPECIFIED Status: Chronic (12) Physical deconditioning Code(s): R53.81 - OTHER MALAISE Status: Acute (13) Rheumatoid arthritis Code(s): M06.9 - RHEUMATOID ARTHRITIS, UNSPECIFIED Status: Chronic Qualifiers: Rheumatoid arthritis location: multiple sites Comment: On Rituxamab (14) Gout Code(s): M10.9 - GOUT, UNSPECIFIED Status: Acute Qualifiers: Gout site: multiple sites Gout etiology: unspecified cause - Plan is on ceftriaxone -: oral lasix -: colchicine for gout, lyrica for likely neuropathy -: severe deconditioning, needs to actively participate with cardiac rehab -: d/w and patient at bedside, march to [facility] floor, is awaiting placement * . Review of Systems - Medications/Allergies Allergies/Adverse Reactions: Allergies Allergy/AdvReac Type Severity Reaction Status Date / Time morphine Allergy Verified 06/28/17 16:03 Medications: Current Medications Acetaminophen (Tylenol) 650 mg PO Q4H PRN PRN Reason: Headache/Fever or Pain Last Admin: 10/28/17 07:14 Dose: 650 mg Hydrocodone Bitart/Acetaminophen ([place] 10/325) 2 tab PO Q4H PRN PRN Reason: Pain 2ND LINE Last Admin: 11/06/17 09:40 Dose: 2 tab Hydrocodone Bitart/Acetaminophen ([place] 7.5/325) 1 tab PO Q4H PRN PRN Reason: Pain Albuterol Sulfate (Albuterol Sulfate) 1.25 mg EZPAP [id number] SCH Last Admin: 11/06/17 09:44 Dose: Not Given Albuterol/Ipratropium (Duoneb) 3 ml NEB Q4H PRN PRN Reason: SOB &/or Wheezing Last Admin: 10/22/17 23:06 Dose: 3 ml Arformoterol Tartrate (Brovana) 15 mcg NEB BID-RT [facility] Last Admin: 11/05/17 22:21 Dose: 15 mcg Aspirin (Aspirin Chewable) 81 mg PO DAILY [facility] Last Admin: 11/06/17 09:33 Dose: 81 mg Bisacodyl (Dulcolax) 10 mg PO DAILYPRN PRN PRN Reason: Constipation Last Admin: 10/26/17 08:29 Dose: 10 mg Budesonide (Pulmicort Neb Solution) 0.5 mg INH BID-RT [facility] Last Admin: 11/05/17 22:21 Dose: 0.5 mg Carvedilol (Coreg) 3.125 mg PO BID [facility] Last Admin: 11/06/17 09:35 Dose: 3.125 mg Cholecalciferol (Vitamin D3) 1,000 units PO DAILY [facility] Last Admin: 11/06/17 09:34 Dose: 1,000 units Colchicine (Colcrys) 0.6 mg PO ASDIR [facility] Dexamethasone (Decadron) 1.5 mg PO DAILY [facility] Last Admin: 11/06/17 10:10 Dose: 1.5 mg Diltiazem HCl (Cardizem Cd) 180 mg PO BID [facility] Last Admin: 11/06/17 09:36 Dose: 180 mg Docusate Sodium (Colace) 100 mg PO BID [facility] Last Admin: 11/06/17 10:28 Dose: Not Given Folic Acid (Folvite) 1 mg PO DAILY [facility] Last Admin: 11/06/17 09:35 Dose: 1 mg Furosemide (Lasix) 40 mg PO DAILY-AC [facility] Last Admin: 11/06/17 08:26 Dose: 40 mg Heparin Sodium (Porcine) (Heparin) 5,000 units SC BID [facility] Last Admin: 11/06/17 09:35 Dose: 5,000 units Hydroxychloroquine Sulfate (Plaquenil) 200 mg PO DAILY [facility] Last Admin: 11/06/17 09:34 Dose: 200 mg Ceftriaxone Sodium 2 gm/ (Sodium Chloride) 100 mls @ 200 mls/hr IVPB Q24HR [facility] Last Admin: 11/05/17 14:17 Dose: 100 mls Dextrose/Sodium Chloride (D5 1/2 Ns) 1,000 mls @ 50 mls/hr IV .Q20H [facility] Last Admin: 11/05/17 12:14 Dose: 1,000 mls Midazolam HCl (Versed) 2 mg SLOW IVP PRN PRN PRN Reason: psychosis Morphine Sulfate (Morphine) 1 mg SLOW IVP Q8H PRN PRN Reason: Pain Multivitamins (Multivit, Chewable Sf) 1 tab PO DAILY [facility] Last Admin: 11/06/17 09:34 Dose: 1 tab Nystatin (Mycostatin Powder) 0 gm TOP BID [facility] Last Admin: 11/06/17 09:46 Dose: 1 applic Ondansetron HCl (Zofran Odt) 4 mg PO Q6H PRN PRN Reason: Nausea/Vomiting Last Admin: 10/23/17 12:04 Dose: 4 mg Ondansetron HCl (Zofran) 4 mg IVP Q6H PRN PRN Reason: Nausea/Vomiting Last Admin: 11/06/17 06:12 Dose: 4 mg Pantoprazole Sodium (Protonix) 40 mg PO DAILY [facility] Last Admin: 11/06/17 09:33 Dose: 40 mg Febuxostat [Uloric] (40 Mg) 0 each PO DAILY [facility] Last Admin: 11/06/17 09:42 Dose: 1 each Pregabalin (Lyrica) 50 mg PO BID [facility] Last Admin: 11/06/17 09:34 Dose: 50 mg Sodium Chloride (Flush - Normal Saline) 10 ml IVF Q12HR [place] Last Admin: 11/06/17 09:37 Dose: 10 ml Sodium Chloride (Flush - Normal Saline) 10 ml IVF PRN PRN PRN Reason: Saline Flush
[2017-11-06] MEDS: Budesonide 0.5 MG/2 ML NEB INH SCH ×2 (12:17→20:11)
[2017-11-06] MEDS: Arformoterol 15 MCG/2 ML NEB NEB SCH ×2 (12:17→20:11)
[2017-11-06] MEDS: Dextrose 5 %-0.45 % NaCl 1,000 ML IV SCH (12:57)
[2017-11-06] MEDS: cefTRIAXone\\ROCEPHIN 2 GM in Sodium Chloride 0.9% 100 ML IVPB SCH (14:33)
[2017-11-06] MEDS ORDERED: Budesonide 0.5 MG/2 ML NEB ONE (20:16)
[2017-11-07] MEDS: Arformoterol 15 MCG/2 ML NEB NEB SCH ×2 (06:36→18:53)
[2017-11-07] MEDS: Budesonide 0.5 MG/2 ML NEB INH SCH ×3 (06:36→19:02)
[2017-11-07] MEDS: Albuterol Sulfate 1.25 MG/3 ML NEB EZPAP SCH ×4 (06:36→19:05)
[2017-11-07] MEDS: Febuxostat [Uloric] 40 MG PO SCH ×2 (08:45)
[2017-11-07] MEDS: Heparin 5,000 UNITS/ML VIAL SC SCH ×2 (08:46→20:57)
[2017-11-07] MEDS: Pregabalin 50 MG CAP PO SCH ×2 (08:46→20:50)
[2017-11-07] MEDS: Furosemide 40 MG TAB PO SCH (08:47)
[2017-11-07] MEDS: Docusate 100 MG CAP PO SCH ×2 (08:47→20:50)
[2017-11-07] MEDS: Folic Acid 1 MG TAB PO SCH (08:47)
[2017-11-07] MEDS: Hydroxychloroquine Sulfate 200 MG TAB PO SCH (10:27)
[2017-11-07] MEDS: Multivit, Chewable SF 1 TAB PO SCH (10:27)
[2017-11-07] MEDS: Carvedilol 3.125 MG TAB PO SCH ×2 (10:27→20:50)
[2017-11-07] MEDS: Dexamethasone 1 MG TAB PO SCH (10:27)
[2017-11-07] MEDS: Nystatin Powder 15 GM BOT TOP SCH ×2 (11:02→20:51)
[2017-11-07] MEDS: Acetaminophen 325 MG TAB PO PRN (11:05)
--- NOTE | 2017-11-07 11:15 | PDOC.PN ---
- Subjective Encounter Start Date: 11/07/17 Encounter Start Time: 10:40 Subjective: feels better, is exercising his hands and fingers -: no sob, has not amb yet - Objective Resuscitation Status: Resuscitation Status FULL:Full Resuscitation MAR Reviewed: Yes Vital Signs & Weight: Vital Signs (12 hours) Temp Pulse Resp BP Pulse Ox 11/07/17 10:51 80 14 11/07/17 08:00 98.4 F 83 18 109/53 L 99 11/07/17 06:36 80 16 11/07/17 00:00 97.2 F L 83 18 118/55 L 95 Weight Admit Weight 250 lb 1.6 oz Weight 254 lb 4.8 oz Most Recent Monitor Data Heart Rate from ECG 76 NIBP 111/45 NIBP BP-Mean 51 Respiration from ECG 16 SpO2 99 I&O: 11/06/17 11/07/17 11/08/17 06:59 06:59 06:59 Intake Total 750 1330 Output Total 250 Balance 750 1080 Result Diagrams: 11/04/17 04:35 11/04/17 04:35 Phys Exam - Physical Examination HEENT: PERRLA, moist MMs Neck: no JVD, supple Respiratory: no wheezing, no rales Cardiovascular: RRR, no significant murmur Gastrointestinal: soft, non-tender, positive bowel sounds Musculoskeletal: pulses present b/l hand and fingers in dressing Neurological: non-focal, moves all 4 limbs Psychiatric: A&O x 3 Dx/Plan (1) Cellulitis and abscess of hand Code(s): L03.119 - CELLULITIS OF UNSPECIFIED PART OF LIMB; L02.519 - CUTANEOUS ABSCESS OF UNSPECIFIED HAND Status: Acute Comment: Growing MSSA from 2 wound cultures (2) Sepsis Code(s): A41.9 - SEPSIS, UNSPECIFIED ORGANISM Status: Acute Qualifiers: Sepsis type: methicillin susceptible Staphylococcus aureus Qualified Code(s ): A41.01 - Sepsis due to Methicillin susceptible Staphylococcus aureus (3) Aortic insufficiency Code(s): I35.1 - NONRHEUMATIC AORTIC (VALVE) INSUFFICIENCY Status: Chronic Qualifiers: Cardiac valve disease etiology: nonrheumatic Qualified Code(s): I35.1 - Nonrheumatic aortic (valve) insufficiency Comment: with suspected endocarditis (4) CAD (coronary artery disease) Code(s): I25.10 - ATHSCL HEART DISEASE OF [place] CORONARY ARTERY W/O ANG PCTRS Status: Chronic Qualifiers: Coronary Disease-Associated Artery/Lesion type: [place] artery [place] vs. transplanted heart: [place] heart Associated angina: without angina Qualified Code(s): I25.10 - Atherosclerotic heart disease of [place] coronary artery without angina pectoris (5) Acute on chronic renal failure Code(s): N17.9 - ACUTE KIDNEY FAILURE, UNSPECIFIED; N18.9 - CHRONIC KIDNEY DISEASE, UNSPECIFIED Status: Resolved Qualifiers: Chronic kidney disease stage: stage 3 (moderate) Comment: resolving (6) CHF (congestive heart failure) Code(s): I50.9 - HEART FAILURE, UNSPECIFIED Status: Chronic Qualifiers: Congestive heart failure type: combined Comment: ef of 45% (7) Anemia, normocytic normochromic Code(s): D64.9 - ANEMIA, UNSPECIFIED Status: Chronic Comment: chronic, stable (8) COPD (chronic obstructive pulmonary disease) Status: Chronic Qualifiers: COPD type: chronic bronchitis (9) Essential hypertension Code(s): I10 - ESSENTIAL (PRIMARY) HYPERTENSION Status: Chronic (10) NILESH (obstructive sleep apnea) Code(s): G47.33 - OBSTRUCTIVE SLEEP APNEA (ADULT) (PEDIATRIC) Status: Chronic Comment: CPAP at night (11) Obesity (BMI 30-39.9) Code(s): E66.9 - OBESITY, UNSPECIFIED Status: Chronic (12) Physical deconditioning Code(s): R53.81 - OTHER MALAISE Status: Acute (13) Rheumatoid arthritis Code(s): M06.9 - RHEUMATOID ARTHRITIS, UNSPECIFIED Status: Chronic Qualifiers: Rheumatoid arthritis location: multiple sites Comment: On Rituxamab (14) Gout Code(s): M10.9 - GOUT, UNSPECIFIED Status: Acute Qualifiers: Gout site: multiple sites Gout etiology: unspecified cause - Plan hemostable -: severe deconditioning, need to work with PT -: is on ceftriaxone, d/w pt and at bedside -: plaquenel, colchicine and lyrica -: oral decadron lowest dose, awaiting placement * . Review of Systems - Medications/Allergies Allergies/Adverse Reactions: Allergies Allergy/AdvReac Type Severity Reaction Status Date / Time morphine Allergy Verified 06/28/17 16:03 Medications: Current Medications Acetaminophen (Tylenol) 650 mg PO Q4H PRN PRN Reason: Headache/Fever or Pain Last Admin: 11/07/17 11:05 Dose: 650 mg Hydrocodone Bitart/Acetaminophen ([place] 10/325) 2 tab PO Q4H PRN PRN Reason: Pain 2ND LINE Last Admin: 11/06/17 09:40 Dose: 2 tab Hydrocodone Bitart/Acetaminophen ([place] 7.5/325) 1 tab PO Q4H PRN PRN Reason: Pain Albuterol Sulfate (Albuterol Sulfate) 1.25 mg EZPAP [id number] [facility] Last Admin: 11/07/17 10:51 Dose: 1.25 mg Albuterol/Ipratropium (Duoneb) 3 ml NEB Q4H PRN PRN Reason: SOB &/or Wheezing Last Admin: 10/22/17 23:06 Dose: 3 ml Arformoterol Tartrate (Brovana) 15 mcg NEB BID-RT [facility] Last Admin: 11/07/17 06:36 Dose: 15 mcg Aspirin (Aspirin Chewable) 81 mg PO DAILY [facility] Last Admin: 11/07/17 08:47 Dose: 81 mg Bisacodyl (Dulcolax) 10 mg PO DAILYPRN PRN PRN Reason: Constipation Last Admin: 10/26/17 08:29 Dose: 10 mg Budesonide (Pulmicort Neb Solution) 0.5 mg INH BID-RT [facility] Last Admin: 11/07/17 06:36 Dose: 0.5 mg Carvedilol (Coreg) 3.125 mg PO BID [facility] Last Admin: 11/07/17 10:27 Dose: 3.125 mg Cholecalciferol (Vitamin D3) 1,000 units PO DAILY [facility] Last Admin: 11/07/17 08:46 Dose: 1,000 units Colchicine (Colcrys) 0.6 mg PO MoTh@0900 [facility] Dexamethasone (Decadron) 1.5 mg PO DAILY [facility] Last Admin: 11/07/17 10:27 Dose: 1.5 mg Diltiazem HCl (Cardizem Cd) 180 mg PO BID [facility] Last Admin: 11/07/17 08:47 Dose: 180 mg Docusate Sodium (Colace) 100 mg PO BID [facility] Last Admin: 11/07/17 08:47 Dose: 100 mg Folic Acid (Folvite) 1 mg PO DAILY [facility] Last Admin: 11/07/17 08:47 Dose: 1 mg Furosemide (Lasix) 40 mg PO DAILY-AC [facility] Last Admin: 11/07/17 08:47 Dose: 40 mg Heparin Sodium (Porcine) (Heparin) 5,000 units SC BID [facility] Last Admin: 11/07/17 08:46 Dose: 5,000 units Hydroxychloroquine Sulfate (Plaquenil) 200 mg PO DAILY [facility] Last Admin: 11/07/17 10:27 Dose: 200 mg Ceftriaxone Sodium 2 gm/ (Sodium Chloride) 100 mls @ 200 mls/hr IVPB Q24HR [facility] Last Admin: 11/06/17 14:33 Dose: 100 mls Midazolam HCl (Versed) 2 mg SLOW IVP PRN PRN PRN Reason: psychosis Morphine Sulfate (Morphine) 1 mg SLOW IVP Q8H PRN PRN Reason: Pain Multivitamins (Multivit, Chewable Sf) 1 tab PO DAILY [facility] Last Admin: 11/07/17 10:27 Dose: 1 tab Nystatin (Mycostatin Powder) 0 gm TOP BID [facility] Last Admin: 11/07/17 11:02 Dose: 1 applic Ondansetron HCl (Zofran Odt) 4 mg PO Q6H PRN PRN Reason: Nausea/Vomiting Last Admin: 10/23/17 12:04 Dose: 4 mg Ondansetron HCl (Zofran) 4 mg IVP Q6H PRN PRN Reason: Nausea/Vomiting Last Admin: 11/06/17 06:12 Dose: 4 mg Pantoprazole Sodium (Protonix) 40 mg PO DAILY [facility] Last Admin: 11/07/17 08:46 Dose: 40 mg Febuxostat [Uloric] (40 Mg) 0 each PO DAILY [facility] Last Admin: 11/07/17 08:45 Dose: 1 each Pregabalin (Lyrica) 50 mg PO BID [facility] Last Admin: 11/07/17 08:46 Dose: 50 mg Sodium Chloride (Flush - Normal Saline) 10 ml IVF Q12HR [facility] Last Admin: 11/07/17 10:28 Dose: 10 ml Sodium Chloride (Flush - Normal Saline) 10 ml IVF PRN PRN PRN Reason: Saline Flush
[2017-11-07] MEDS: cefTRIAXone\\ROCEPHIN 2 GM in Sodium Chloride 0.9% 100 ML IVPB SCH (12:58)
[2017-11-07] MEDS: Dextrose 5 %-0.45 % NaCl 1,000 ML IV SCH (14:28)
[2017-11-08 04:27] VITALS: TEMP 98
[2017-11-08] MEDS: Albuterol Sulfate 1.25 MG/3 ML NEB EZPAP SCH ×3 (06:42→14:55)
[2017-11-08] MEDS: Budesonide 0.5 MG/2 ML NEB INH SCH (06:43)
[2017-11-08] MEDS: Arformoterol 15 MCG/2 ML NEB NEB SCH (07:09)
[2017-11-08] MEDS: Febuxostat [Uloric] 40 MG PO SCH ×2 (08:38)
[2017-11-08] MEDS: Pregabalin 50 MG CAP PO SCH (08:39)
[2017-11-08] MEDS: Hydroxychloroquine Sulfate 200 MG TAB PO SCH (08:39)
[2017-11-08] MEDS: Heparin 5,000 UNITS/ML VIAL SC SCH (08:39)
[2017-11-08] MEDS: Multivit, Chewable SF 1 TAB PO SCH (08:39)
[2017-11-08] MEDS: Furosemide 40 MG TAB PO SCH (08:40)
[2017-11-08] MEDS: Dexamethasone 1 MG TAB PO SCH (08:40)
[2017-11-08] MEDS: Docusate 100 MG CAP PO SCH (08:40)
[2017-11-08] MEDS: Carvedilol 3.125 MG TAB PO SCH (08:40)
[2017-11-08] MEDS: Folic Acid 1 MG TAB PO SCH (08:40)
[2017-11-08 08:45] VITALS: BP 129/63
[2017-11-08] MEDS: Nystatin Powder 15 GM BOT TOP SCH (09:00)
[2017-11-08] MEDS ORDERED: Colchicine 0.6 MG TAB PO SCH (09:00)
--- NOTE | 2017-11-08 11:15 | PDOC.CTH ---
Cardiology Progress Note - Subjective He is doing much better. He had surgery Wednesday on his fingers and was found to have a pasty gouty arthritis, no infection. - Objective Vital Signs Temp Pulse Resp BP Pulse Ox 11/08/17 08:00 98.0 F 88 20 96 11/08/17 07:40 98.0 F 88 20 129/63 100 11/08/17 06:45 97 11/08/17 06:42 83 16 97 11/08/17 04:00 98.0 F 76 18 120/58 L 99 Admit Weight 250 lb 1.6 oz Weight 253 lb 11/07/17 11/08/17 11/09/17 06:59 06:59 06:59 Intake Total 1330 1550 Output Total 250 Balance 1080 1550 - Physical Examination General/Neuro: alert & oriented x3, NAD Neck: no JVD present Lungs: CTA, unlabored respirations Heart: RRR Abdomen: NT/ND Extremities: other: (no edema.) - Telemetry Telemetry Rhythm: NSR - Labs Result Diagrams: 11/04/17 04:35 11/04/17 04:35 Troponin/CKMB CK-MB (CK-2) 0.9 ng/mL (0-6.6) 10/21/17 11:00 Troponin I 0.073 ng/mL (< 0.028) H 10/21/17 14:00 - Assessment/Plan 1. Acute on chronic systolic and diastolic heart failure 2. Synovitis of the wrist and 5th finger. 3. CAD, stable 4. Rheumatoid arthritis, on Rituxamab 5. 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 6. Gouty arthritis. PLAN: - AVR in the future. - Abx per ID. - Stable at this time. - Will need rehab. - Will sign off. Please call with any questions.
--- NOTE | 2017-11-08 12:04 | PDOC.PN ---
- Subjective Encounter Start Date: 11/08/17 Encounter Start Time: 09:00 Subjective: no sob, feels better - Objective Resuscitation Status: Resuscitation Status FULL:Full Resuscitation MAR Reviewed: Yes Vital Signs & Weight: Vital Signs (12 hours) Temp Pulse Resp BP Pulse Ox 11/08/17 11:48 85 16 11/08/17 08:00 98.0 F 88 20 96 11/08/17 07:40 98.0 F 88 20 129/63 100 11/08/17 06:45 97 11/08/17 06:42 83 16 97 11/08/17 04:00 98.0 F 76 18 120/58 L 99 Weight Admit Weight 250 lb 1.6 oz Weight 253 lb Most Recent Monitor Data Heart Rate from ECG 76 NIBP 111/45 NIBP BP-Mean 51 Respiration from ECG 16 SpO2 99 I&O: 11/07/17 11/08/17 11/09/17 06:59 06:59 06:59 Intake Total 1330 1550 Output Total 250 Balance 1080 1550 Result Diagrams: 11/04/17 04:35 11/04/17 04:35 Additional Labs: Accuchecks 11/08/17 11:25 POC Glucose 158 H Phys Exam - Physical Examination HEENT: PERRLA, moist MMs Neck: no JVD, supple Respiratory: no wheezing, no rales Cardiovascular: RRR, no significant murmur Gastrointestinal: soft, no distention, positive bowel sounds Musculoskeletal: no edema, pulses present Neurological: non-focal, moves all 4 limbs Psychiatric: A&O x 3 Dx/Plan (1) Cellulitis and abscess of hand Code(s): L03.119 - CELLULITIS OF UNSPECIFIED PART OF LIMB; L02.519 - CUTANEOUS ABSCESS OF UNSPECIFIED HAND Status: Acute Comment: Growing MSSA from 2 wound cultures (2) Sepsis Code(s): A41.9 - SEPSIS, UNSPECIFIED ORGANISM Status: Resolved Qualifiers: Sepsis type: methicillin susceptible Staphylococcus aureus Qualified Code(s ): A41.01 - Sepsis due to Methicillin susceptible Staphylococcus aureus (3) Aortic insufficiency Code(s): I35.1 - NONRHEUMATIC AORTIC (VALVE) INSUFFICIENCY Status: Chronic Qualifiers: Cardiac valve disease etiology: nonrheumatic Qualified Code(s): I35.1 - Nonrheumatic aortic (valve) insufficiency Comment: with suspected endocarditis (4) CAD (coronary artery disease) Code(s): I25.10 - ATHSCL HEART DISEASE OF [place] CORONARY ARTERY W/O ANG PCTRS Status: Chronic Qualifiers: Coronary Disease-Associated Artery/Lesion type: [place] artery [place] vs. transplanted heart: [place] heart Associated angina: without angina Qualified Code(s): I25.10 - Atherosclerotic heart disease of [place] coronary artery without angina pectoris (5) Acute on chronic renal failure Code(s): N17.9 - ACUTE KIDNEY FAILURE, UNSPECIFIED; N18.9 - CHRONIC KIDNEY DISEASE, UNSPECIFIED Status: Resolved Qualifiers: Chronic kidney disease stage: stage 3 (moderate) Comment: resolving (6) CHF (congestive heart failure) Code(s): I50.9 - HEART FAILURE, UNSPECIFIED Status: Chronic Qualifiers: Congestive heart failure type: combined Comment: ef of 45% (7) Anemia, normocytic normochromic Code(s): D64.9 - ANEMIA, UNSPECIFIED Status: Chronic Comment: chronic, stable (8) COPD (chronic obstructive pulmonary disease) Status: Chronic Qualifiers: COPD type: chronic bronchitis (9) Essential hypertension Code(s): I10 - ESSENTIAL (PRIMARY) HYPERTENSION Status: Chronic (10) NILESH (obstructive sleep apnea) Code(s): G47.33 - OBSTRUCTIVE SLEEP APNEA (ADULT) (PEDIATRIC) Status: Chronic Comment: CPAP at night (11) Obesity (BMI 30-39.9) Code(s): E66.9 - OBESITY, UNSPECIFIED Status: Chronic (12) Physical deconditioning Code(s): R53.81 - OTHER MALAISE Status: Acute (13) Rheumatoid arthritis Code(s): M06.9 - RHEUMATOID ARTHRITIS, UNSPECIFIED Status: Chronic Qualifiers: Rheumatoid arthritis location: multiple sites Comment: On Rituxamab (14) Gout Code(s): M10.9 - GOUT, UNSPECIFIED Status: Acute Qualifiers: Gout site: multiple sites Gout etiology: unspecified cause - Plan hemostable -: may dc to snf if accepted -: duration of ceftriaxone treatment per -: needs to amb with PT at snf, has severe deconditioning * .
[2017-11-08] MEDS: cefTRIAXone\\ROCEPHIN 2 GM in Sodium Chloride 0.9% 100 ML IVPB SCH (13:11)
--- NOTE | 2017-11-08 15:04 | DIS ---
DATE OF ADMISSION: 10/21/2017 DATE OF DISCHARGE: 11/08/2017 DISCHARGE DISPOSITION: Swing bed. PRIMARY DISCHARGE DIAGNOSES: Left hand tenosynovitis secondary to gout with abscess and cultures melvin wing Staphylococcus aureus sensitive to methicillin, sepsis secondary to above, severe aortic insuffi ciency with likely suspected endocarditis. SECONDARY DISCHARGE DIAGNOSES: Congestive heart failure with systolic dysfunction and ejection fract ion of around 45%; coronary artery disease; acute kidney injury, resolving; chronic anemia; chronic k idney disease, stage 3; chronic obstructive pulmonary disease; hypertension; obstructive sleep apnea; obesity; severe deconditioning; history of rheumatoid arthritis; gout. PROCEDURES DONE DURING HOSPITALIZATION: Please note the patient was hospitalized for nearly 18 days and please refer to medical records for complete description of all the procedures done. Echo with 2 D Doppler showed EF of 45%-50%. This was a transthoracic echo and showed [id number] aortic r egurgitation, [id number] tricuspid regurgitation. Left hand x-rays done revealed fracture invo lving distal aspect of proximal phalanx of fifth finger, left hand. CAT scan done revealed extensive fluid seen within the carpal tunnel and flexor tendon sheath suggesting tenosynovitis. There was al so pathological fracture of distal aspect of proximal phalanx of little finger with involvement of th e cyst at the base of the first metacarpal. Patient has had major synovectomy of the wrist flexor co mpartment, arthrotomy of the wrist, and drainage of flexor tenosynovitis fourth finger, incision and debridement open fracture fifth finger on the left side. All of these were done by Dr. Briceño on 01/2017. He has had a PICC line placed on 10/25/2017. Transesophageal echo done on 10/29/2017 revea led ejection fraction of 45%. Moderate mitral regurgitation, moderate tricuspid regurgitation, sever e aortic insufficiency with loss of anatomy of the right coronary cusp with small 2-mm flail masses, which could be related to aortic valve endocarditis versus degenerative process. There was no periva lvular abscess seen. Patient has had a repeat debridement of the left hand done by Dr. Worthy. The procedures performed include: 1. Left palmar hand ring finger, flexor digitorum profundus radical flexor tenosynovectomy and flexo r digitorum superficialis radical tenosynovectomy. 2. Left long finger, radical tenosynovectomy flexor digitorum profundus and radical flexor digitorum superficialis tenosynovectomy. 3. Left long finger and ring finger proximal phalangeal joint synovectomy, arthrotomy, and drainage of thick tophaceous gout. 4. Right small finger proximal interphalangeal joint arthrotomy with gouty synovectomy. All of these were done by Dr. Worthy on 11/05/2017. Wound cultures from the left hand have grown S taph aureus resistant to Zosyn and amoxicillin, but sensitive to all other antibiotics. Blood cultur es x2, no growth. Stool for C. difficile on 10/30/2017 was negative. INPATIENT CONSULTS: Dr. Coleman for Infectious Disease, Dr. Briceño for Orthopedic Surgery, Dr. Juanito branch for Hand Surgery, Dr. Antonio/Dr. Simmons for Cardiology. DISCHARGE MEDICATIONS: Patient to continue ceftriaxone 2 grams daily. The end date for the antibiot ic per Dr. Coleman. This is both for the left hand MSSA infection and suspected aortic valve endocardi tis. Albuterol nebulizer q.6 hourly, Brovana 15 mcg nebulizer twice daily, aspirin 81 mg p.o. daily, budesonide nebulizer twice daily, Coreg 3.125 mg p.o. twice daily, Vitamin D3 1000 units p.o. daily, Plavix 75 mg p.o. daily, colchicine 0.6 mg as before, dexamethasone 1.5 mg p.o. daily, Cardizem-CD 1 80 mg p.o. twice daily, Colace 100 mg p.o. twice daily, Uloric 40 mg p.o. daily, folic acid 0.8 mg p. o. daily, Lasix 40 mg p.o. daily, Plaquenil 200 mg p.o. daily, Protonix 40 mg p.o. daily, Lyrica 50 m g p.o. twice daily, rituximab infusions every 112 days. ALLERGIES: MORPHINE. DISCHARGE PLAN: The patient to follow up with primary care physician in 1 week. He needs to follow up with Dr. Worthy as advised and Dr. Coleman in 2 weeks. BRIEF COURSE DURING HOSPITALIZATION: The patient initially got admitted on the for shortness of breath and left hand infection. He apparently cut himself with a kitchen knife 6 weeks prior to arr ival. The patient had multiple imaging studies done for the left hand, which showed fracture of prox imal phalanx of left little finger and tenosynovitis. He has had initial debridement done by Dr. Chasity mckeon with cultures obtained growing MSSA. He has had a repeat debridement done by Dr. Worthy with t he above-mentioned procedures. Patient has had mild CHF exacerbation with systolic dysfunction and w as gently diuresed as well. He currently has severe deconditioning and has not ambulated yet. He ne eds to work with physical therapy at the swing bed to mobilize himself. He has had an echo with 2D D oppler, transthoracic done, which showed severe aortic regurgitation. In view of his MSSA, a transes ophageal echo was done, which showed 2-mm flail mass near the aortic valve with suspected endocarditi s. He has had consultation with Dr. Coleman from the beginning. He is on ceftriaxone 2 grams based on cultures and sensitivity data. Weekly CBC, CRP, CMP, and sed rate to be done as long as patient is on ceftriaxone and the results needs to be faxed to Dr. Coleman. He needs to follow up with Dr. Coleman in [address] Worthy as well. He is hemodynamically stable, and once the swing bed is approve d, patient will be shortly discharged. A total of 35 minutes was spent on discharge plan. Please see a [id number] documentation on [facility] for the day of discharge.
--- NOTE | 2017-11-13 11:39 | EKG ---
Test Reason : SOB Blood Pressure : / mmHG Vent. Rate : 112 BPM Atrial Rate : 112 BPM P-R Int : 172 ms QRS Dur : 094 ms QT Int : 344 ms P-R-T Axes : 030 007 135 degrees QTc Int : 469 ms Sinus tachycardia with frequent Premature ventricular complexes and Fusion complexes Left ventricular hypertrophy with repolarization abnormality Abnormal ECG Confirmed by DANIELA BRIGHT D.O. ([id number]), offline editor CHOLO EDDY ([id number]) on 11/13/2017 11:39:09 AM Referred By: NOVA Confirmed By:DANIELA BRIGHT D.O.
== END 2017-11-08 15:51 | disposition swing bed (61) | DRG 853 ==
LOC: SCSER 10:48 → 2NO 15:06 → CCU 10-28 08:00 → 2NO 10-29 11:20 → ONC 11-06 13:13
PROVIDERS: ADMIT Emergency Medicine; ATTEND Emergency Medicine
PROC: 0RBP0ZZ Excision of Left Wrist Joint, Open Approach (ICD-10-PCS; principal; 2017-10-24)
PROC: 0R9X0ZZ Drainage of Left Finger Phalangeal Joint, Open Approach (ICD-10-PCS; 2017-10-24)
PROC: 0PDV0ZZ Extraction of Left Finger Phalanx, Open Approach (ICD-10-PCS; 2017-10-24)
PROC: 02HV33Z Insertion of Infusion Device into Superior Vena Cava, Percutaneous Approach (ICD-10-PCS; 2017-10-25)
PROC: B24BZZ4 Ultrasonography of Heart with Aorta, Transesophageal (ICD-10-PCS; 2017-10-29)
PROC: 0LB80ZZ Excision of Left Hand Tendon, Open Approach (ICD-10-PCS; 2017-11-05)
PROC: 0RBW0ZZ Excision of Right Finger Phalangeal Joint, Open Approach (ICD-10-PCS; 2017-11-05)
PROC: 0RBX0ZZ Excision of Left Finger Phalangeal Joint, Open Approach (ICD-10-PCS; 2017-11-05)
DX: A41.01 Sepsis due to Methicillin susceptible Staphylococcus aureus (principal); J96.20 Acute and chronic respiratory failure, unspecified whether with hypoxia or hypercapnia; N17.9 Acute kidney failure, unspecified; I50.43 Acute on chronic combined systolic (congestive) and diastolic (congestive) heart failure; K52.1 Toxic gastroenteritis and colitis; E27.40 Unspecified adrenocortical insufficiency; E87.5 Hyperkalemia; I08.3 Combined rheumatic disorders of mitral, aortic and tricuspid valves; I13.0 Hypertensive heart and chronic kidney disease with heart failure and stage 1 through stage 4 chronic kidney disease, or unspecified chronic kidney disease; L02.512 Cutaneous abscess of left hand; I48.2 Chronic atrial fibrillation; N18.3 Chronic kidney disease, stage 3 (moderate); M06.9 Rheumatoid arthritis, unspecified; Z95.1 Presence of aortocoronary bypass graft; G47.33 Obstructive sleep apnea (adult) (pediatric); Z95.0 Presence of cardiac pacemaker; Z95.5 Presence of coronary angioplasty implant and graft; K21.9 Gastro-esophageal reflux disease without esophagitis; M1A.0421 Idiopathic chronic gout, left hand, with tophus (tophi); I25.10 Atherosclerotic heart disease of native coronary artery without angina pectoris; J44.9 Chronic obstructive pulmonary disease, unspecified; E66.9 Obesity, unspecified; E78.5 Hyperlipidemia, unspecified; Z68.30 Body mass index [BMI] 30.0-30.9, adult; D64.9 Anemia, unspecified; T36.95XA Adverse effect of unspecified systemic antibiotic, initial encounter; Y92.230 Patient room in hospital as the place of occurrence of the external cause; S62.617S Displaced fracture of proximal phalanx of left little finger, sequela; W26.0XXS Contact with knife, sequela; S61.217S Laceration without foreign body of left little finger without damage to nail, sequela
CPT/HCPCS: 36415; 36416; 36569; 71010; 71020; 76770; 80048; 80053; 80069; 80202; 82553; 82607; 82746; 82805; 83735; 83880; 84100; 84484; 84550; 85025; 85652; 87040; 87070; 87077; 87102; 87186; 87205; 87206; 87324; 87449; 88305; 88333; 89060; 93005; 93306; 93312; 93798; 94640; 94660; 96365; 96367; 96375; A4216; C1751; G8978-GP-CK; G8978-GP-CM; G8979-GP-CK; G8980-GP-CK; G8987-GO-CJ; G8987-GO-CM; G8988-GO-CH; G8988-GO-CK; J0696; J0702; J1642; J1644; J1650; J1720; J1940; J2250; J2405; J2543; J2704; J3010; J3370; J3490; J7050; J7620; J7626; J8540; Q0162; S0020; S0032

== ENCOUNTER 2017-11-22 12:18 | Emergency (ER) | payer MEDICARE, OTHER ==
[2017-11-22 13:19] LABS: #Eosinphils 1.1 thou/uL (0.0-0.7); #Lymphocytes 0.9 thou/uL (1.20-3.40); #Monocytes 0.7 thou/uL (0.11-0.59); #Neutrophils 7.3 thou/uL (1.40-6.50); %Basophils 0.5 % (0.0-1.0); %Eosinophils 11.1 % (0.0-10.0); %Lymphocytes 9.1 % (21.0-51.0); %Monocytes 7.2 % (0.0-10.0); %Neutrophils 72.2 % (42.0-75.0); Hemoglobin 9.6 g/dL (14.0-18.0); Mean Corpuscular HGB CONC 30.4 g/dL (32.0-36.0); Mean Corpuscular Hemoglobin 30.6 pg (27.0-31.0); Mean Platelet Volume 7.4 fL (7.4-10.4); Platelet Count 149 thou/uL (130-400); RBC Distribution Width 16.3 % (11.5-14.5); Red Blood Cell (RBC) Count 3.14 mill/uL (4.70-6.10); White Blood Cell (WBC) Count 10.1 thou/uL (4.8-10.8)
[2017-11-22 13:29] LABS: ALT (SGPT) 53 U/L (8-55); AST (SGOT) 32 U/L (5-34); Alkaline Phosphatase 104 U/L (40-150); Anion Gap 11 mmol/L (10-20); BUN (Urea Nitrogen) 42 mg/dL (8.4-25.7); Bilirubin, Total 0.3 mg/dL (0.2-1.2); Calc. Creatinine Clearance 0 mL/min (70-130); Calcium 10.4 mg/dL (7.8-10.44); Carbon Dioxide 28 mmol/L (23-31); Chloride 109 mmol/L (98-107); Estimated GFR-MDRD 64; Globulin 2.5 g/dL (2.4-3.5); Glucose 97 mg/dL (83-110); Potassium 4.2 mmol/L (3.5-5.1); Protein, Total 5.5 g/dL (5.8-8.1); Sodium 144 mmol/L (136-145)
--- NOTE | 2017-11-22 19:03 | SPC ---
PICC PLACEMENT ULTRASOUND GUIDED VENOUS ACCESS: (Peripherally Inserted Central Catheter) HISTORY: 72-year-old male receiving snf IV antibiotics through his existing left PICC for infection of t he left wrist, presents to the Emergency Department with infected left PICC and left arm cellulitis a round the PICC insertion. Because of the infected left PICC, the contralateral right arm was selected for the new PICC placement despite the presence of a right subclavian pacemaker. TECHNIQUE: Catheter caliber: 5 Samoan Catheter trim length: 47 cm Catheter lumen number: Single Catheter tip location: Upper portion of right atrium. Vein accessed: Right brachial (one of a double brachial system) Signed, informed consent was obtained. A tourniquet was applied at the proximal aspect of the arm. The arm was prepared and draped in the usual sterile fashion. A 25 gauge needle was used to apply bu ffered lidocaine superficially. The vein was punctured with a 21 gauge micropuncture needle under ul trasound guidance. A 0.018 inch guide wire was advanced through the micropuncture needle and into th e vein. Under fluoroscopic guidance, the guide wire was advanced to the right atrium. The PICC (per ipherally inserted central catheter) was flushed and trimmed to the appropriate length. The skin pun cture hole was widened with a blade. The micropuncture needle was exchanged over the guide wire for a 5 Samoan peel-away dilator sheath. The dilator was exchanged over the guide wire for the PICC, whi ch was then further advanced under fluoroscopy. The sheath and guide wire were removed. The PICC wa s flushed again and secured in place at the arm. The patient tolerated the procedure well. There wa s no complication. IMPRESSION: Successful placement of PICC (peripherally inserted central catheter) lien POS: [facility]
== END 2017-11-22 19:08 | disposition home or self-care (01) ==
LOC: ERS 12:18
DX: T80.219A Unspecified infection due to central venous catheter, initial encounter (principal); I25.2 Old myocardial infarction; E78.5 Hyperlipidemia, unspecified; J44.9 Chronic obstructive pulmonary disease, unspecified; M10.9 Gout, unspecified; D64.9 Anemia, unspecified; I12.9 Hypertensive chronic kidney disease with stage 1 through stage 4 chronic kidney disease, or unspecified chronic kidney disease; N18.9 Chronic kidney disease, unspecified; F41.9 Anxiety disorder, unspecified; F32.9 Major depressive disorder, single episode, unspecified
CPT/HCPCS: 36415; 36569; 87040; 99285

== ENCOUNTER 2017-11-27 07:40 | Inpatient (IN) | payer MEDICARE ==
[2017-11-27 08:12] LABS: #Eosinphils 0.3 thou/uL (0.0-0.7); #Monocytes 0.6 thou/uL (0.11-0.59); #Neutrophils 8.9 thou/uL (1.40-6.50); %Eosinophils 2.4 % (0.0-10.0); %Lymphocytes 9.6 % (21.0-51.0); %Monocytes 5.1 % (0.0-10.0); %Neutrophils 82.8 % (42.0-75.0); Hemoglobin 11.4 g/dL (14.0-18.0); Mean Corpuscular HGB CONC 31.2 g/dL (32.0-36.0); Mean Corpuscular Hemoglobin 31.1 pg (27.0-31.0); Mean Corpuscular Volume 99.5 fl (80.0-94.0); Mean Platelet Volume 7.5 fL (7.4-10.4); Platelet Count 186 thou/uL (130-400); RBC Distribution Width 16.3 % (11.5-14.5); Red Blood Cell (RBC) Count 3.68 mill/uL (4.70-6.10); White Blood Cell (WBC) Count 10.7 thou/uL (4.8-10.8)
--- NOTE | 2017-11-27 08:17 | RAD ---
FRONTAL VIEW CHEST: COMPARISON: 10/28/17. INDICATION: Dyspnea. FINDINGS: Redemonstration of evidence of CHF. Mild bilateral pleural fluid present. Postoperative changes of mediastinum with a right-side cardiac pacing device again noted. There is vascular congestion and bi lateral interstitial edema. IMPRESSION: Findings consistent with decompensated congestive heart failure. POS: [facility]
[2017-11-27 08:28] LABS: Bilirubin Negative (Negative); Blood, Urine Moderate (Negative); Clarity CLEAR (Clear); Glucose, Urine (Dipstick) Negative (Negative); Leukocyte Negative (Negative); Nitrite Negative (Negative); Protein, Urine (Dipstick) Negative (Neg-Trace); Specific Gravity, Urine 1.018 (1.002-1.036); Urobilinogen 0.2 mg/dL (0.2-1.0); pH, Urine 5.5 (5.0-9.0)
[2017-11-27 08:30] LABS: Bacteria/HPF None Seen HPF (None Seen); Hyaline Casts/LPF 0-3 HYALINE CAST LPF (0-3 Hyaline); Pathc Cast-AUWi Flag 0.67 (0-2.49); Squamous Epithelial None Seen HPF (0-3); WBC/HPF 0-3 HPF (0-3)
[2017-11-27 08:33] LABS: ALT (SGPT) 64 U/L (8-55); AST (SGOT) 38 U/L (5-34); Albumin 3.7 g/dL (3.4-4.8); Alkaline Phosphatase 149 U/L (40-150); Anion Gap 17 mmol/L (10-20); BUN (Urea Nitrogen) 43 mg/dL (8.4-25.7); Bilirubin, Total 0.5 mg/dL (0.2-1.2); Calc. Creatinine Clearance 0 mL/min (70-130); Calcium 11.1 mg/dL (7.8-10.44); Carbon Dioxide 27 mmol/L (23-31); Chloride 102 mmol/L (98-107); Estimated GFR-MDRD 55; Globulin 3.1 g/dL (2.4-3.5); Glucose 75 mg/dL (83-110); Potassium 4.3 mmol/L (3.5-5.1); Protein, Total 6.8 g/dL (5.8-8.1); Sodium 142 mmol/L (136-145)
[2017-11-27] MEDS ORDERED: Acetaminophen 500 MG TAB ONE (08:41)
[2017-11-27] MEDS ORDERED: Vancomycin HCl 1.25 GM in Sodium Chloride 0.9% 250 ML 250 ML IVPB SCH (09:00)
[2017-11-27] MEDS ORDERED: Piperacillin/Tazobactam 4.5 GM in Sodium Chloride 0.9% 100 ML IVPB SCH (09:00)
[2017-11-27 09:41] LABS: Actual Bicarbonate (HCO3a) 31.4 mEq/L (22-26); Base Excess (BEa) 5.7 mEq/L (0 (+/-) 2.5); CO2 Tension 51.7 mmHg (35.0-45.0); Calcium, Ionized 1.4 mmol/L (1.12-1.30); Hematocrit-ABG 30.9 % (42.0-52.0); Hemoglobin (Hb) 9.7 g/dL (14.0-18.0); O2 Tension (PaO2) 78.8 mmHg (80.0-100.0)
[2017-11-27 09:42] LABS: ALV-art Gradient 86.655 (0-20); Analyzer IN Cardio ER; Puncture Site RRA
[2017-11-27 12:21] LABS: Lactic Acid 0.9 mmol/L (0.5-2.2)
--- NOTE | 2017-11-27 18:35 | HP ---
DATE OF ADMISSION: 11/27/2017 CHIEF COMPLAINT: Shortness of breath, acute onset. HISTORY OF PRESENT ILLNESS: The patient is a 72-year-old male who went to [facility] for physical therapy, because of his generalized weakness and was found to be very short of breath and re quired 3 liters of oxygen this morning. Nursing staff from [facility] called EMS and he was transfe rred to the emergency room for further evaluation. Apparently, his temperature is 102.8. His primar y care physician is Dr. Montse Serrato, and Dr. Conrad, who is a doctor working at [employer], came an d saw him on and he examined the patient and makes some comment that he has some fluid in hi s lungs. The patient was recently in our hospital and was admitted for left hand cellulitis. PAST MEDICAL HISTORY: Otherwise is very extensive: 1. Chronic kidney disease. 2. Hypercalcemia. 3. Congestive heart failure. 4. Coronary artery disease status post coronary artery bypass graft. 5. Hypertension. 6. Obstructive sleep apnea. 7. Emphysema and asthma. 8. Rheumatoid arthritis. PAST SURGICAL HISTORY: 1. CABG. 2. Two stent placement 3. Bilateral total knee replacement. 4. Carpal tunnel surgery. 5. Rotator cuff surgery. 6. Pacemaker placement. SOCIAL HISTORY: He never smoked. He does not use any drugs or alcohol. ALLERGIES: MORPHINE. CO-MEDICATIONS: Please refer to the list, which would be created by the nursing staff. FAMILY HISTORY: Father had emphysema. Mother unknown. REVIEW OF SYSTEMS: Constitutional: The patient complains about generalized weakness and fever, no c hills. Cardiovascular: No chest pains. Respiratory: Shortness of breath and cough. Gastrointesti nal: Negative for nausea and vomiting. Genitourinary: Negative for hematuria or dysuria. Neurolog ic: Negative for headache and dizziness. Hematology: Negative for easy bruising and clotting abnor malities. PHYSICAL EXAMINATION: VITAL SIGNS: Blood pressure is 88/58, pulse is 103, respiratory rate is 24, O2 saturation is 100% on 2 liters by nasal cannula. GENERAL: He is an obese man. HEENT: His head is atraumatic, normocephalic. Eyes are PERRLA. Sclerae nonicteric. Oral mucosa is somewhat dry. NECK: Supple, JVD is +1 similar bilaterally. LUNGS: Rales and crackles especially at the left base present. Few wheezes. HEART: S1, S2 normal. No S3, no S4. ABDOMEN: Obese, nontender, bowel sounds are present, no organomegaly. EXTREMITIES: 1+ peripheral edema similar bilaterally. Venous stasis discoloration about his left an kle present. Right lower extremity, 1-2+ peripheral edema; that is the limb where the bypasses were taken from, so it is chronically swollen. He has none open skin discoloration of the left heel. NEUROLOGICAL: He is alert and oriented x4. There is no any sensorimotor deficits present. Cranial nerves are intact. LABORATORY DATA AND X-RAY FINDINGS: Showed white count of 10.7, hemoglobin 11.4, hematocrit 36.6, pl atelet count is 186. Electrolytes within normal limits. BUN 43, creatinine 1.29, lactic acid 2.1, c alcium 11.1, AST 38, ALT 64. BNP 1437.9. The rest of chemistry within normal limits. Urinalysis sh owed a moderate amount of blood of unclear etiology. ABGs pending. Chest x-ray showed some congesti ve heart failure. Mild bilateral pleural fluid present. This was personally reviewed by me and ther e is vascular congestion and bilateral interstitial edema, but that is quite mild. EKG showed demand pacing, but it is mostly sinus tachycardia with multiple PVCs and PACs with some ST segment depressi on in lateral leads and nonspecific T-wave abnormalities. This was personally reviewed by me. IMPRESSION: 1. Fever with cough, suspicion for pneumonia versus exacerbation of chronic obstructive pulmonary di sease. This is with quite profound hypoxia. The patient is on O2. 2. Hypotension. This could be related to volume depletion since his BUN is elevated and his oral mu cosa looks dry or this could be the beginning of sepsis with hypotension. 3. Congestive heart failure with elevation of BNP. 4. Coronary artery disease and significant changes on EKG with possible ischemia. 5. Hypertension per history. 6. Obstructive sleep apnea on CPAP at home. 7. Rheumatoid arthritis. 8. Hypercalcemia. 9. Hematuria of unclear etiology. PLAN: To admit him to the IMCU. Condition is guarded. IV of normal saline at 75 mL per hour after the bolus of normal saline at 250 x1. IV antibiotics, Levaquin, cefepime and vancomycin, pharmacy to dose. DuoNeb q.4 hours. Sputum culture and Gram stain. Pulmonary/Critical Care consult with Dr. Robin palomo. Peptic ulcer disease prophylaxis with H2 torin and deep venous thrombosis prophylaxis with Lovenox. Cardiology consultation with Dr. Bach for possible ischemia, additional 2 sets of card iac enzymes with troponin I. If the patient deteriorates, we will put the central line and start him on vasopressors after fluid resuscitation is completed. The time spent on this admission is 65 alan mariela.
[2017-11-27] MEDS ORDERED: Ondansetron HCl/PF 4 MG/2 ML Vial IVP PRN (19:57)
[2017-11-27] MEDS ORDERED: Acetaminophen 325 MG TAB PO PRN (19:57)
[2017-11-27] MEDS ORDERED: Cefepime 1 GM in Sodium Chloride 0.9% 100 ML IVPB SCH (19:57)
[2017-11-27] MEDS ORDERED: VANCOMYCIN IVPB PRN (20:40)
[2017-11-27] MEDS ORDERED: Cefepime 1 GM, Admixture Fee 1 EACH in Sterile Water 10 ML SLOW IVP SCH (20:45)
[2017-11-27] MEDS ORDERED: Vancomycin HCl 1 GM in Premix Bag 1 BAG IVPB SCH (21:00)
[2017-11-27 21:27] LABS: CKMB 0.7 ng/mL (0-6.6); Troponin I 0.143 ng/mL (< 0.028)
[2017-11-27] MEDS ORDERED: Adacel (T-DAP) 0.5 ML VIAL ONE (21:59)
[2017-11-28 01:26] LABS: CKMB 0.8 ng/mL (0-6.6); Troponin I 0.108 ng/mL (< 0.028)
[2017-11-28] MEDS ORDERED: Famotidine/PF 20 mg/2ml Vial ONE (01:32)
[2017-11-28 04:16] LABS: #Lymphocytes 0.3 thou/uL (1.20-3.40); #Monocytes 0.1 thou/uL (0.11-0.59); #Neutrophils 4.2 thou/uL (1.40-6.50); %Eosinophils 0.2 % (0.0-10.0); %Lymphocytes 7.1 % (21.0-51.0); %Neutrophils 91.7 % (42.0-75.0); Hemoglobin 9.8 g/dL (14.0-18.0); Mean Corpuscular HGB CONC 31.2 g/dL (32.0-36.0); Mean Corpuscular Hemoglobin 30.9 pg (27.0-31.0); Mean Corpuscular Volume 99.1 fl (80.0-94.0); Mean Platelet Volume 7.3 fL (7.4-10.4); Platelet Count 130 thou/uL (130-400); RBC Distribution Width 15.4 % (11.5-14.5); Red Blood Cell (RBC) Count 3.15 mill/uL (4.70-6.10); White Blood Cell (WBC) Count 4.6 thou/uL (4.8-10.8)
[2017-11-28 04:34] LABS: Anion Gap 14 mmol/L (10-20); BUN (Urea Nitrogen) 51 mg/dL (8.4-25.7); Calc. Creatinine Clearance 0 mL/min (70-130); Carbon Dioxide 28 mmol/L (23-31); Chloride 102 mmol/L (98-107); Estimated GFR-MDRD 58; Glucose 142 mg/dL (83-110); Sodium 140 mmol/L (136-145)
[2017-11-28 04:50] LABS: CKMB 0.7 ng/mL (0-6.6); Troponin I 0.085 ng/mL (< 0.028)
[2017-11-28] MEDS ORDERED: Furosemide 40 MG/4 ML VIAL SLOW IVP SCH (10:30)
[2017-11-28] MEDS ORDERED: Metolazone 5 MG TAB PO SCH (10:30)
[2017-11-28] MEDS: Sodium Chloride 0.9% 1,000 ML IV SCH ×2 (12:26→13:33)
[2017-11-28] MEDS: Famotidine/PF 20 mg/2ml Vial SLOW IVP SCH ×2 (12:27→21:03)
[2017-11-28] MEDS: guaiFENesin ER 600 MG TAB PO SCH ×3 (12:27→21:03)
[2017-11-28] MEDS: Cefepime 1 GM, Admixture Fee 1 EACH in Sterile Water 10 ML SLOW IVP SCH ×2 (12:28→21:03)
[2017-11-28] MEDS: Enoxaparin Sodium 40 MG/0.4 ML SYRINGE SC SCH (16:30)
--- NOTE | 2017-11-28 16:55 | PDOC.PN ---
- Subjective Encounter Start Date: 11/28/17 Encounter Start Time: 12:00 Pt seen for followup re: pneumonia. Cough+. SOBOE+. - Objective MAR Reviewed: Yes Vital Signs & Weight: Vital Signs (12 hours) Temp Pulse Resp BP Pulse Ox 11/28/17 16:33 98.1 F 105 H 22 H 141/89 H 96 11/28/17 12:05 97.9 F 61 22 H 95 11/28/17 11:57 97.9 F 61 22 H 133/79 96 Weight Weight 243 lb I&O: 11/27/17 11/28/17 11/29/17 06:59 06:59 06:59 Intake Total 250 Balance 250 Result Diagrams: 11/28/17 03:34 11/28/17 03:34 EKG Reviewed by me: Yes (Tele: NSR) Phys Exam - Physical Examination Obese HEENT: moist MMs Neck: supple Damien crackles Cardiovascular: RRR Gastrointestinal: soft Neurological: moves all 4 limbs Psychiatric: normal affect Skin: no rash Dx/Plan (1) Pneumonia Code(s): J18.9 - PNEUMONIA, UNSPECIFIED ORGANISM Status: Acute (2) COPD exacerbation Code(s): J44.1 - CHRONIC OBSTRUCTIVE PULMONARY DISEASE W (ACUTE) EXACERBATION Status: Acute (3) Acute on chronic combined systolic and diastolic ACC/AHA stage C congestive heart failure Code(s): I50.43 - ACUTE ON CHRONIC COMBINED SYSTOLIC AND DIASTOLIC HRT FAIL Status: Acute (4) CAD (coronary artery disease) Code(s): I25.10 - ATHSCL HEART DISEASE OF [place] CORONARY ARTERY W/O ANG PCTRS Status: Chronic Qualifiers: Coronary Disease-Associated Artery/Lesion type: [place] artery [place] vs. transplanted heart: [place] heart Associated angina: without angina Qualified Code(s): I25.10 - Atherosclerotic heart disease of [place] coronary artery without angina pectoris (5) CKD (chronic kidney disease) stage 3, GFR 30-59 ml/min Code(s): N18.3 - CHRONIC KIDNEY DISEASE, STAGE 3 (MODERATE) Status: Chronic (6) Essential hypertension Code(s): I10 - ESSENTIAL (PRIMARY) HYPERTENSION Status: Chronic (7) Obesity (BMI 30-39.9) Code(s): E66.9 - OBESITY, UNSPECIFIED Status: Chronic (8) Rheumatoid arthritis Code(s): M06.9 - RHEUMATOID ARTHRITIS, UNSPECIFIED Status: Chronic Qualifiers: Rheumatoid arthritis location: multiple sites Comment: On Rituxamab - Plan continue antibiotics * . Continue oxygen, steroids, bronchodilators and antibiotics. Start diuretics. If improving, plan to discharge pt back to swing bed in 24-48 hrs. Review of Systems - Review of Systems Constitutional: weakness. negative: fever, chills, sweats, malaise Respiratory: Cough, Sputum. negative: Dry, Shortness of Breath, Hemoptysis, SOB with Excertion, Pleuritic Pain, Wheezing Cardiovascular: negative: chest pain, palpitations, orthopnea, paroxysmal nocturnal dyspnea, edema, light headedness Gastrointestinal: negative: Nausea, Vomiting, Abdominal Pain, Diarrhea, Constipation, Melena, Hematochezia Genitourinary: negative: Dysuria, Frequency, Incontinence, Hematuria, Retention - Medications/Allergies Allergies/Adverse Reactions: Allergies Allergy/AdvReac Type Severity Reaction Status Date / Time morphine Allergy Verified 06/28/17 16:03 Medications: Current Medications Acetaminophen (Tylenol) 650 mg PO Q4H PRN PRN Reason: Headache/Fever or Pain Albuterol/Ipratropium (Duoneb) 3 ml EZPAP [id number] [facility] Last Admin: 11/28/17 12:26 Dose: Not Given Enoxaparin Sodium (Lovenox) 40 mg SC 0900 [facility] Last Admin: 11/28/17 16:30 Dose: Not Given Famotidine (Pepcid) 20 mg SLOW IVP Q12HR [facility] Last Admin: 11/28/17 12:27 Dose: Not Given Furosemide (Lasix) 40 mg SLOW IVP DAILY [facility] Guaifenesin (Mucinex) 1,200 mg PO Q12HR [facility] Last Admin: 11/28/17 12:28 Dose: Not Given Levofloxacin 500 mg/ Device 100 mls @ 100 mls/hr IVPB Q24HR [facility] Last Admin: 11/28/17 13:33 Dose: 100 mls Cefepime HCl 1 gm/Miscellaneous Medication 1 each/ Sterile Water 10 mls @ 120 mls/hr SLOW IVP 0830,2030 [facility] Last Admin: 11/28/17 12:28 Dose: Not Given Vancomycin HCl 1.25 gm/ Sodium (Chloride) 250 mls @ 166.667 mls/hr IVPB 2200 [facility] Methylprednisolone Sodium Succinate (Solu-Medrol) 40 mg IVP Q6HR [facility] Last Admin: 11/28/17 16:32 Dose: Not Given Metolazone (Zaroxolyn) 5 mg PO 0830 [facility] Miscellaneous Medication (Pharmacy To Dose) 1 each IVPB PRN PRN PRN Reason: SEPSIS Ondansetron HCl (Zofran) 4 mg IVP Q6H PRN PRN Reason: Nausea/Vomiting Sodium Chloride (Flush - Normal Saline) 10 ml IVF Q12HR [facility] Sodium Chloride (Flush - Normal Saline) 10 ml IVF PRN PRN PRN Reason: Saline Flush
[2017-11-28] MEDS ORDERED: Colchicine 0.6 MG TAB PO SCH (17:00)
[2017-11-28] MEDS ORDERED: RITUXIMAB 1000 MG IVPB SCH (17:00)
[2017-11-28] MEDS ORDERED: PATIENT'S HOME MEDICATION EA EYE SCH (21:00)
[2017-11-28] MEDS: Pregabalin 50 MG CAP PO SCH (21:04)
[2017-11-28] MEDS: Docusate 100 MG CAP PO SCH (21:04)
[2017-11-28] MEDS: Carvedilol 3.125 MG TAB PO SCH (21:04)
[2017-11-28] MEDS ORDERED: Vancomycin HCl 1.25 GM in Sodium Chloride 0.9% 250 ML 250 ML IVPB SCH (22:00)
[2017-11-28] MEDS: Arformoterol 15 MCG/2 ML NEB NEB SCH (22:20)
--- NOTE | 2017-11-29 00:33 | CON ---
DATE OF CONSULTATION: 11/28/2017 HISTORY OF PRESENT ILLNESS: Javier Rosenberg is an unfortunate 72-year-old gentleman with a history of coronary bypass graft surgery who presents with increasing dyspnea. The patient has previously undergone coronary artery bypass graft surgery in 2008. He had a WHITNEY placed to LAD and saphenous vein graft to the diagonal. The patient also has had previous placement of electronic pacemaker. He also has subsequently undergone PTCA and stent placement. The patient was admitted on several occasions recently with sepsis. He was also recently found to have severe aortic regurgitation. The patient was in the [place] when he suddenly became short of breath. He denied having any chest discomfort. PAST MEDICAL HISTORY: 1. Coronary artery disease. 2. Hypertension. 3. Emphysema. 4. Sleep apnea. PAST SURGICAL HISTORY: Knee replacement, carpal tunnel surgery, rotator cuff surgery. SOCIAL HISTORY: Nonsmoker. ALLERGIES: MORPHINE. FAMILY HISTORY: No strong family history of heart disease. MEDICATIONS: See nursing list. PHYSICAL EXAMINATION: GENERAL: Obese gentleman in mild distress with a blood pressure of 141/89. NECK: Showed no jugular venous distention. LUNGS: Coarse breath sounds bilateral. HEART: Regular rate and rhythm with a 1/6 systolic murmur. ABDOMEN: Distended. EXTREMITIES: Showed bilateral edema. LABORATORY DATA: Sodium 140, potassium 4.0, chloride 102, bicarbonate 28, BUN 51, creatinine is 1.23, troponin 0.085. White blood count 4.6, hemoglobin 9.8, hematocrit 31.2 and his platelets were 130. His EKG reveals him to have normal sinus rhythm with frequent PVCs. IMPRESSION: 1. Congestive heart failure. 2. Cardiomyopathy. 3. Severe aortic regurgitation. 4. History of coronary artery bypass surgery. 5. History of percutaneous transluminal coronary angioplasty and stent placement. 6. Hypertension. 7. Obesity. 8. Sleep apnea. This gentleman presents with congestive heart failure and apparently has been diagnosed with influenza. The patient being treated with IV antibiotics and Lasix. From a cardiac standpoint, we will follow this patient with you through his hospitalization. SPENCER
[2017-11-29 05:49] LABS: #Lymphocytes 0.4 thou/uL (1.20-3.40); #Monocytes 0.1 thou/uL (0.11-0.59); %Eosinophils 0.2 % (0.0-10.0); %Lymphocytes 8.8 % (21.0-51.0); Hemoglobin 9.5 g/dL (14.0-18.0); Mean Corpuscular HGB CONC 31.7 g/dL (32.0-36.0); Mean Corpuscular Volume 97.7 fl (80.0-94.0); Platelet Count 144 thou/uL (130-400); RBC Distribution Width 15.1 % (11.5-14.5); Red Blood Cell (RBC) Count 3.06 mill/uL (4.70-6.10); White Blood Cell (WBC) Count 4.5 thou/uL (4.8-10.8)
[2017-11-29 06:13] LABS: Anion Gap 16 mmol/L (10-20); BUN (Urea Nitrogen) 55 mg/dL (8.4-25.7); Calc. Creatinine Clearance 72 mL/min (70-130); Calcium 9.9 mg/dL (7.8-10.44); Carbon Dioxide 27 mmol/L (23-31); Chloride 103 mmol/L (98-107); Estimated GFR-MDRD 48; Glucose 298 mg/dL (83-110); Potassium 3.6 mmol/L (3.5-5.1); Sodium 142 mmol/L (136-145)
[2017-11-29] MEDS: Arformoterol 15 MCG/2 ML NEB NEB SCH ×2 (07:26→19:26)
[2017-11-29] MEDS ORDERED: Loratadine 10 MG TAB PO PRN (07:46)
[2017-11-29] MEDS ORDERED: hydrALAZINE 20 MG/ML VIAL SLOW IVP PRN (07:46)
[2017-11-29] MEDS ORDERED: Ondansetron ODT 4 MG TAB PO PRN (07:46)
[2017-11-29] MEDS ORDERED: Chloraseptic Spray 180 ml Bottle PO PRN (07:46)
[2017-11-29] MEDS ORDERED: Sodium Chloride 0.65% Nasal 44 ML BOT EA NARE PRN (07:46)
[2017-11-29] MEDS ORDERED: Artificial Tear Sol 15 ML BOT EA EYE PRN (07:46)
[2017-11-29] MEDS ORDERED: Senokot 8.6 MG TAB PO PRN (07:46)
[2017-11-29] MEDS ORDERED: Eucerin (Mineral Oil/Petrolatum,White) 30 gm Jar TOP PRN (07:46)
[2017-11-29] MEDS ORDERED: Mag-Al 1200 mg/1200 mg/30 ML UDCUP PO PRN (07:46)
[2017-11-29] MEDS ORDERED: Diabetic Tussin 200 MG/10 ML UDCUP PO PRN (07:46)
[2017-11-29] MEDS ORDERED: Milk Of Magnesia 30 ML UDCUP PO PRN (07:46)
[2017-11-29] MEDS: Furosemide 40 MG/4 ML VIAL SLOW IVP SCH (08:22)
[2017-11-29] MEDS: Clopidogrel Bisulfate 75 MG TAB PO SCH (08:22)
[2017-11-29] MEDS: Famotidine 20 MG TAB PO SCH ×2 (08:22→20:10)
[2017-11-29] MEDS: Hydroxychloroquine Sulfate 200 MG TAB PO SCH (08:22)
[2017-11-29] MEDS: Enoxaparin Sodium 40 MG/0.4 ML SYRINGE SC SCH (08:22)
[2017-11-29] MEDS: guaiFENesin ER 600 MG TAB PO SCH ×2 (08:22→20:10)
[2017-11-29] MEDS: Metolazone 5 MG TAB PO SCH (08:23)
[2017-11-29] MEDS: Docusate 100 MG CAP PO SCH ×2 (08:23→20:11)
[2017-11-29] MEDS: Cefepime 1 GM, Admixture Fee 1 EACH in Sterile Water 10 ML SLOW IVP SCH ×2 (08:23→20:07)
[2017-11-29] MEDS: Pregabalin 50 MG CAP PO SCH ×2 (08:23→20:11)
[2017-11-29] MEDS: Carvedilol 3.125 MG TAB PO SCH ×2 (08:23→20:11)
[2017-11-29] MEDS: Folic Acid 1 MG TAB PO SCH (08:23)
[2017-11-29] MEDS ORDERED: Dexamethasone 1 MG TAB PO SCH (09:00)
[2017-11-29] MEDS ORDERED: Febuxostat [Uloric] 40 MG PO SCH (09:00)
[2017-11-29 10:35] LABS: Legionella Urinary Ag Negative (Negative); Strep pneumo Urine Ag NEGATIVE (NEGATIVE)
--- NOTE | 2017-11-29 11:57 | PDOC.PN ---
- Subjective Encounter Start Date: 11/29/17 Encounter Start Time: 07:35 -: old records requested/rev Patient seen and examined. No new complaints. No overnight events - Objective MAR Reviewed: Yes Vital Signs & Weight: Vital Signs (12 hours) Temp Pulse Resp BP Pulse Ox 11/29/17 11:47 104 H 24 H 11/29/17 08:00 97.3 F L 67 18 97 11/29/17 07:46 97.3 F L 67 18 157/69 H 96 11/29/17 07:27 97 11/29/17 07:26 94 20 97 11/29/17 07:23 94 20 97 11/29/17 04:03 95 11/29/17 04:00 97.9 F 105 H 20 140/67 97 11/29/17 02:29 93 18 94 L Weight Weight 240 lb I&O: 11/28/17 11/29/17 11/30/17 06:59 06:59 06:59 Intake Total 1230 Output Total 450 Balance 780 Result Diagrams: 11/29/17 05:19 11/29/17 05:19 EKG Reviewed by me: Yes Phys Exam - Physical Examination Constitutional: NAD HEENT: PERRLA, moist MMs, sclera anicteric Neck: no JVD, supple Respiratory: wheezing present Cardiovascular: RRR, no rub DM+ Gastrointestinal: soft, non-tender, no distention, positive bowel sounds Musculoskeletal: pulses present, edema present Neurological: non-focal, normal sensation Lymphatic: no nodes Psychiatric: normal affect, A&O x 3 Skin: no rash, normal turgor Dx/Plan (1) Acute on chronic combined systolic and diastolic heart failure Code(s): I50.43 - ACUTE ON CHRONIC COMBINED SYSTOLIC AND DIASTOLIC HRT FAIL Status: Acute (2) Acute respiratory failure with hypoxia Code(s): J96.01 - ACUTE RESPIRATORY FAILURE WITH HYPOXIA Status: Acute (3) COPD exacerbation Code(s): J44.1 - CHRONIC OBSTRUCTIVE PULMONARY DISEASE W (ACUTE) EXACERBATION Status: Acute (4) Community acquired bacterial pneumonia Code(s): J15.9 - UNSPECIFIED BACTERIAL PNEUMONIA Status: Acute (5) Demand ischemia Code(s): I24.8 - OTHER FORMS OF ACUTE ISCHEMIC HEART DISEASE Status: Acute (6) Influenza A Code(s): J10.1 - FLU DUE TO OTH IDENT INFLUENZA VIRUS W OTH RESP MANIFEST Status: Acute (7) Sepsis with acute organ dysfunction Code(s): A41.9 - SEPSIS, UNSPECIFIED ORGANISM; R65.20 - SEVERE SEPSIS WITHOUT SEPTIC SHOCK Status: Acute (8) Anemia, normocytic normochromic Code(s): D64.9 - ANEMIA, UNSPECIFIED Status: Chronic Comment: (9) CAD (coronary artery disease) Code(s): I25.10 - ATHSCL HEART DISEASE OF [place] CORONARY ARTERY W/O ANG PCTRS Status: Chronic Qualifiers: Coronary Disease-Associated Artery/Lesion type: [place] artery [place] vs. transplanted heart: [place] heart Associated angina: without angina Qualified Code(s): I25.10 - Atherosclerotic heart disease of [place] coronary artery without angina pectoris (10) CKD (chronic kidney disease) stage 3, GFR 30-59 ml/min Code(s): N18.3 - CHRONIC KIDNEY DISEASE, STAGE 3 (MODERATE) Status: Chronic (11) Essential hypertension Code(s): I10 - ESSENTIAL (PRIMARY) HYPERTENSION Status: Chronic (12) NILESH (obstructive sleep apnea) Code(s): G47.33 - OBSTRUCTIVE SLEEP APNEA (ADULT) (PEDIATRIC) Status: Chronic Comment: CPAP at night (13) Obesity (BMI 30-39.9) Code(s): E66.9 - OBESITY, UNSPECIFIED Status: Chronic (14) Rheumatoid arthritis Code(s): M06.9 - RHEUMATOID ARTHRITIS, UNSPECIFIED Status: Chronic Qualifiers: Rheumatoid arthritis location: multiple sites Comment: (15) Severe aortic regurgitation by prior echocardiogram Code(s): I35.1 - NONRHEUMATIC AORTIC (VALVE) INSUFFICIENCY Status: Chronic - Plan cont current plan of care, continue antibiotics, PT/OT, respiratory therapy * continue empiric antibiotics as below * reduce solumedrol * continue duoneb * medication reviewed as below * symptomatic treatment * continue diuresis. Review of Systems - Review of Systems Constitutional: weakness. negative: fever, chills, sweats, malaise, other Eyes: negative: Pain, Vision Change, Conjunctivae Inflammation, Eyelid Inflammation, Redness, Other ENT: negative: Ear Pain, Ear Discharge, Nose Pain, Nose Discharge, Nose Congestion, Mouth Pain, Mouth Swelling, Throat Pain, Throat Swelling, Other Respiratory: Cough, Shortness of Breath, SOB with Excertion, Wheezing. negative : Dry, Hemoptysis, Pleuritic Pain, Sputum Gastrointestinal: negative: Nausea, Vomiting, Abdominal Pain, Diarrhea, Constipation, Melena, Hematochezia, Other Genitourinary: negative: Dysuria, Frequency, Incontinence, Hematuria, Retention , Other Musculoskeletal: negative: Neck Pain, Shoulder Pain, Arm Pain, Back Pain, Hand Pain, Leg Pain, Foot Pain, Other Skin: negative: Rash, Lesions, Anthony, Bruising, Other - Medications/Allergies Allergies/Adverse Reactions: Allergies Allergy/AdvReac Type Severity Reaction Status Date / Time morphine Allergy Verified 06/28/17 16:03 Medications: Current Medications Acetaminophen (Tylenol) 650 mg PO Q4H PRN PRN Reason: Headache/Fever or Pain Al Hydroxide/Mg Hydroxide (Maalox) 15 ml PO Q4H PRN PRN Reason: Heartburn or Indigestion Albuterol/Ipratropium (Duoneb) 3 ml EZPAP [id number] [facility] Last Admin: 11/29/17 11:47 Dose: 3 ml Arformoterol Tartrate (Brovana) 15 mcg NEB BID [facility] Last Admin: 11/29/17 07:26 Dose: 15 mcg Artificial Tears (Tears Renewed 15ml Bottle) 0 drop EA EYE PRN PRN PRN Reason: Dry Eyes Aspirin (Aspirin Chewable) 81 mg PO DAILY [facility] Last Admin: 11/29/17 08:23 Dose: 81 mg Budesonide (Pulmicort Neb Solution) 0.5 mg NEB BID-RT [facility] Carvedilol (Coreg) 3.125 mg PO BID [facility] Last Admin: 11/29/17 08:23 Dose: 3.125 mg Cholecalciferol (Vitamin D3) 1,000 units PO DAILY [facility] Last Admin: 11/29/17 08:22 Dose: 1,000 units Clopidogrel Bisulfate (Plavix) 75 mg PO DAILY [facility] Last Admin: 11/29/17 08:22 Dose: 75 mg Colchicine (Colcrys) 0.6 mg PO ASDIR [facility] Diltiazem HCl (Cardizem Cd) 180 mg PO BID [facility] Last Admin: 11/29/17 08:22 Dose: 180 mg Docusate Sodium (Colace) 100 mg PO BID [facility] Last Admin: 11/29/17 08:23 Dose: Not Given Enoxaparin Sodium (Lovenox) 40 mg SC 0900 [facility] Last Admin: 11/29/17 08:22 Dose: 40 mg Famotidine (Pepcid) 20 mg PO BID [facility] Last Admin: 11/29/17 08:22 Dose: 20 mg Folic Acid (Folvite) 1 mg PO DAILY [facility] Last Admin: 11/29/17 08:23 Dose: 1 mg Furosemide (Lasix) 40 mg SLOW IVP DAILY [facility] Last Admin: 11/29/17 08:22 Dose: 40 mg Guaifenesin (Mucinex) 1,200 mg PO Q12HR [facility] Last Admin: 11/29/17 08:22 Dose: 1,200 mg Guaifenesin (Robitussin Sf) 200 mg PO Q4H PRN PRN Reason: Cough Hydralazine HCl (Apresoline) 10 mg SLOW IVP Q4H PRN PRN Reason: Systolic BP > 180 Hydroxychloroquine Sulfate (Plaquenil) 200 mg PO DAILY [facility] Last Admin: 11/29/17 08:22 Dose: 200 mg Cefepime HCl 1 gm/Miscellaneous Medication 1 each/ Sterile Water 10 mls @ 120 mls/hr SLOW IVP 0830,2029 [facility] Last Admin: 11/29/17 08:23 Dose: 10 mls Levofloxacin (Levaquin) 500 mg PO 0600 [facility] Loratadine (Claritin) 10 mg PO DAILYPRN PRN PRN Reason: Sinus Symptoms Magnesium Hydroxide (Milk Of Magnesium) 30 ml PO DAILYPRN PRN PRN Reason: Constipation Methylprednisolone Sodium Succinate (Solu-Medrol) 20 mg IVP Q6HR [facility] Last Admin: 11/29/17 11:46 Dose: 20 mg Metolazone (Zaroxolyn) 5 mg PO 0830 [facility] Last Admin: 11/29/17 08:23 Dose: 5 mg Mineral Oil/White Petrolatum (Eucerin Cream) 0 gm TOP BIDPRN PRN PRN Reason: Dry Skin Ondansetron HCl (Zofran) 4 mg IVP Q6H PRN PRN Reason: Nausea/Vomiting Ondansetron HCl (Zofran Odt) 4 mg PO Q6H PRN PRN Reason: Nausea/Vomiting Pantoprazole Sodium (Protonix) 40 mg PO 2100 [facility] Phenol (Chloraseptic [place] 180 Ml Bot) 0 ml PO PRN PRN PRN Reason: Sore Throat Pregabalin (Lyrica) 50 mg PO BID [facility] Last Admin: 11/29/17 08:23 Dose: 50 mg Senna (Senokot) 2 tab PO HSPRN PRN PRN Reason: Constipation Sodium Chloride (Flush - Normal Saline) 10 ml IVF Q12HR [facility] Last Admin: 11/29/17 08:24 Dose: 10 ml Sodium Chloride (Flush - Normal Saline) 10 ml IVF PRN PRN PRN Reason: Saline Flush Sodium Chloride ([place] Nasal [place] 0.65%) 0 ml EA NARE QIDPRN PRN PRN Reason: Nasal Congestion
--- NOTE | 2017-11-29 12:32 | CON ---
DATE OF CONSULTATION: 11/29/2017 HISTORY OF PRESENT ILLNESS: Mr. Ocampo who sees Dr. Marquis, who admitted 2 days ago with flu like symptoms, cough, congestion, shortness of breath. Positive for influenza. He is in Tamiflu. Additionally, he was started on multiple antibiotics. His history is extensively and well outlined i n previous medical records. He was recently hospitalized here and discharged following sepsis follow ed left hand synovitis secondary to abscess. He has known history of additional multiple medical pro blems as outlined, though he says he is not been coughing any grossly purulent sputum. He has had fe matt, but mainly cough which is dry. PAST MEDICAL HISTORY: Congestive heart failure, coronary artery disease, chronic anemia, rheumatoid arthritis, obstructive sleep apnea. MEDICINES FROM HOME: Includes Rituxan, Lyrica, Protonix, Plaquenil 200, Lasix 40, Folic acid, dexame thasone 1.5, Colchicine, Plavix 75, Coreg 3.125, Symbicort, aspirin, Brovana. He is now being started on Maxipime, Levaquin, vancomycin and steroids. PREVIOUS SURGERIES: Included bypass surgery, previous cardiac catheterization. ALLERGIES: MORPHINE. REVIEW OF SYSTEMS: A 10-point negative. PHYSICAL EXAMINATION: VITAL SIGNS: His sats are 97% on 3 liters, respiration 18, temperature 97, blood pressure 157/63. GENERAL: He appears to be cushingoid. CHEST: Reveals decreased breath sounds, no wheezing. CARDIAC: Normal S1, S2, no gallops. ABDOMEN: Soft. LABORATORY DATA: Creatinine 1.5, white count is only 5000, H&H is 9 and 29, platelet count is 144,00 0. X-RAY FINDINGS: X-ray shows no obvious infiltrates, there is some cardiomegaly. IMPRESSION: 1. Bronchitis. 2. Influenza A. 3. Pneumonia. 4. Renal failure. 5. Rheumatoid arthritis. 6. Congestive heart failure. 7. Severe deconditioning. 8. Chronic obstructive pulmonary disease. 9. Obstructive sleep apnea. PLAN: I switch over to oral antibiotics. Supportive care, neb treatments. Continue Tamiflu. We will notify Dr. Marquis. This is a consultation note with 15 minutes spent with the patient care on the floor.
--- NOTE | 2017-11-29 17:28 | PDOC.CTH ---
Cardiology Progress Note - Subjective He is doing well. His breathing is at baseline. - Objective Vital Signs Temp Pulse Resp BP Pulse Ox 11/29/17 16:05 96 20 11/29/17 11:59 98.1 F 98 20 136/61 99 11/29/17 11:47 104 H 24 H 11/29/17 08:00 97.3 F L 67 18 97 11/29/17 07:46 97.3 F L 67 18 157/69 H 96 11/29/17 07:27 97 11/29/17 07:26 94 20 97 11/29/17 07:23 94 20 97 Weight 240 lb 11/28/17 11/29/17 11/30/17 06:59 06:59 06:59 Intake Total 1230 Output Total 450 Balance 780 - Physical Examination General/Neuro: alert & oriented x3, NAD Neck: no JVD present Lungs: unlabored respirations Heart: RRR Abdomen: NT/ND Extremities: + edema B (trace) - Telemetry Telemetry Rhythm: NSR - Labs Result Diagrams: 11/29/17 05:19 11/29/17 05:19 Troponin/CKMB CK-MB (CK-2) 0.7 ng/mL (0-6.6) 11/28/17 03:34 Troponin I 0.085 ng/mL (< 0.028) H 11/28/17 03:34 - Assessment/Plan 1. Acute in chronic systollic heart failure 2. influenza type A. 3. CAD, stable PLAN: - CV stable. No new recs.
[2017-11-29] MEDS: Budesonide 0.5 MG/2 ML NEB NEB SCH (19:26)
[2017-11-29] MEDS: Oseltamivir 75 MG CAP PO SCH (20:08)
[2017-11-30 05:50] LABS: #Lymphocytes 0.4 thou/uL (1.20-3.40); #Monocytes 0.2 thou/uL (0.11-0.59); #Neutrophils 3.7 thou/uL (1.40-6.50); %Eosinophils 0.3 % (0.0-10.0); %Lymphocytes 8.6 % (21.0-51.0); %Monocytes 4.4 % (0.0-10.0); %Neutrophils 86.8 % (42.0-75.0); Hemoglobin 9.1 g/dL (14.0-18.0); Mean Corpuscular HGB CONC 30.8 g/dL (32.0-36.0); Mean Corpuscular Hemoglobin 30.3 pg (27.0-31.0); Mean Corpuscular Volume 98.2 fl (80.0-94.0); Mean Platelet Volume 7.2 fL (7.4-10.4); Platelet Count 130 thou/uL (130-400); RBC Distribution Width 14.8 % (11.5-14.5); Red Blood Cell (RBC) Count 2.99 mill/uL (4.70-6.10); White Blood Cell (WBC) Count 4.3 thou/uL (4.8-10.8)
[2017-11-30 06:15] LABS: ALT (SGPT) 42 U/L (8-55); AST (SGOT) 19 U/L (5-34); Albumin 2.9 g/dL (3.4-4.8); Alkaline Phosphatase 106 U/L (40-150); Anion Gap 11 mmol/L (10-20); BUN (Urea Nitrogen) 56 mg/dL (8.4-25.7); Bilirubin, Total 0.2 mg/dL (0.2-1.2); Calc. Creatinine Clearance 84 mL/min (70-130); Calcium 9.8 mg/dL (7.8-10.44); Carbon Dioxide 29 mmol/L (23-31); Chloride 106 mmol/L (98-107); Estimated GFR-MDRD 58; Globulin 2.5 g/dL (2.4-3.5); Glucose 234 mg/dL (83-110); Magnesium 2.1 mg/dL (1.6-2.6); Potassium 3.4 mmol/L (3.5-5.1); Protein, Total 5.4 g/dL (5.8-8.1); Sodium 143 mmol/L (136-145)
--- NOTE | 2017-11-30 07:56 | RAD ---
CHEST 1 VIEW: Date4: 11/30/17 HISTORY: Dyspnea. COMPARISON: 11/27/17. FINDINGS: Cardiac silhouette is magnified and upper limits of normal in size. Pulmonary vasculature is also upp er limits of normal. Mediastinum is midline with postoperative changes and a multilead right subclavi an cardiac electronic device. There is no confluent air space consolidation or evidence of pneumothor ax. satellite project site monitor leads overlie the chest. IMPRESSION: Borderline cardiomegaly and pulmonary vascular prominence. No florid edema is apparent. POS: JAYSON
[2017-11-30] MEDS: Budesonide 0.5 MG/2 ML NEB NEB SCH (07:58)
[2017-11-30] MEDS: Arformoterol 15 MCG/2 ML NEB NEB SCH (08:17)
[2017-11-30 08:55] VITALS: BMI 32.1
--- NOTE | 2017-11-30 09:59 | PDOC.PN ---
- Subjective Encounter Start Date: 11/30/17 Encounter Start Time: 06:20 Patient seen and examined. No new complaints. No overnight events - Objective MAR Reviewed: Yes Vital Signs & Weight: Vital Signs (12 hours) Temp Pulse Resp BP Pulse Ox 11/30/17 07:58 89 16 97 11/30/17 04:48 96 11/30/17 04:00 97.9 F 92 18 144/62 H 93 L 11/30/17 00:20 94 16 94 L 11/29/17 22:27 95 16 93 L Weight Admit Weight 243 lb Weight 237 lb I&O: 11/29/17 11/30/17 12/01/17 06:59 06:59 06:59 Intake Total 1230 960 Output Total 450 1730 Balance 780 -770 Result Diagrams: 11/30/17 05:26 11/30/17 05:26 EKG Reviewed by me: Yes Phys Exam - Physical Examination Constitutional: NAD HEENT: PERRLA, moist MMs, sclera anicteric Neck: no JVD, supple Respiratory: no wheezing, no rales, no rhonchi Cardiovascular: RRR, no significant murmur, no rub Gastrointestinal: soft, non-tender, no distention, positive bowel sounds Musculoskeletal: no edema, pulses present Neurological: non-focal Lymphatic: no nodes Psychiatric: normal affect Skin: no rash, normal turgor Dx/Plan (1) Acute on chronic combined systolic and diastolic heart failure Code(s): I50.43 - ACUTE ON CHRONIC COMBINED SYSTOLIC AND DIASTOLIC HRT FAIL Status: Acute (2) Acute respiratory failure with hypoxia Code(s): J96.01 - ACUTE RESPIRATORY FAILURE WITH HYPOXIA Status: Acute (3) COPD exacerbation Code(s): J44.1 - CHRONIC OBSTRUCTIVE PULMONARY DISEASE W (ACUTE) EXACERBATION Status: Acute (4) Community acquired bacterial pneumonia Code(s): J15.9 - UNSPECIFIED BACTERIAL PNEUMONIA Status: Acute (5) Demand ischemia Code(s): I24.8 - OTHER FORMS OF ACUTE ISCHEMIC HEART DISEASE Status: Acute (6) Influenza A Code(s): J10.1 - FLU DUE TO OTH IDENT INFLUENZA VIRUS W OTH RESP MANIFEST Status: Acute (7) Sepsis with acute organ dysfunction Code(s): A41.9 - SEPSIS, UNSPECIFIED ORGANISM; R65.20 - SEVERE SEPSIS WITHOUT SEPTIC SHOCK Status: Acute (8) Anemia, normocytic normochromic Code(s): D64.9 - ANEMIA, UNSPECIFIED Status: Chronic Comment: (9) CAD (coronary artery disease) Code(s): I25.10 - ATHSCL HEART DISEASE OF [place] CORONARY ARTERY W/O ANG PCTRS Status: Chronic Qualifiers: Coronary Disease-Associated Artery/Lesion type: [place] artery [place] vs. transplanted heart: [place] heart Associated angina: without angina Qualified Code(s): I25.10 - Atherosclerotic heart disease of [place] coronary artery without angina pectoris (10) CKD (chronic kidney disease) stage 3, GFR 30-59 ml/min Code(s): N18.3 - CHRONIC KIDNEY DISEASE, STAGE 3 (MODERATE) Status: Chronic (11) Essential hypertension Code(s): I10 - ESSENTIAL (PRIMARY) HYPERTENSION Status: Chronic (12) NILESH (obstructive sleep apnea) Code(s): G47.33 - OBSTRUCTIVE SLEEP APNEA (ADULT) (PEDIATRIC) Status: Chronic Comment: CPAP at night (13) Obesity (BMI 30-39.9) Code(s): E66.9 - OBESITY, UNSPECIFIED Status: Chronic (14) Rheumatoid arthritis Code(s): M06.9 - RHEUMATOID ARTHRITIS, UNSPECIFIED Status: Chronic Qualifiers: Rheumatoid arthritis location: multiple sites Comment: (15) Severe aortic regurgitation by prior echocardiogram Code(s): I35.1 - NONRHEUMATIC AORTIC (VALVE) INSUFFICIENCY Status: Chronic - Plan cont current plan of care, continue antibiotics, social sciences chair * continue rocephin to finish course as advised before * medication reviewed as below * medically stable for discharge * see discharge summery * outpt follow up. Review of Systems - Review of Systems ENT: negative: Ear Pain, Ear Discharge, Nose Pain, Nose Discharge, Nose Congestion, Mouth Pain, Mouth Swelling, Throat Pain, Throat Swelling, Other Respiratory: negative: Cough, Dry, Shortness of Breath, Hemoptysis, SOB with Excertion, Pleuritic Pain, Sputum, Wheezing Cardiovascular: negative: chest pain, palpitations, orthopnea, paroxysmal nocturnal dyspnea, edema, light headedness, other Gastrointestinal: negative: Nausea, Vomiting, Abdominal Pain, Diarrhea, Constipation, Melena, Hematochezia, Other Genitourinary: negative: Dysuria, Frequency, Incontinence, Hematuria, Retention , Other Musculoskeletal: negative: Neck Pain, Shoulder Pain, Arm Pain, Back Pain, Hand Pain, Leg Pain, Foot Pain, Other Skin: negative: Rash, Lesions, Anthony, Bruising, Other - Medications/Allergies Allergies/Adverse Reactions: Allergies Allergy/AdvReac Type Severity Reaction Status Date / Time morphine Allergy Verified 06/28/17 16:03 Medications: Current Medications Acetaminophen (Tylenol) 650 mg PO Q4H PRN PRN Reason: Headache/Fever or Pain Al Hydroxide/Mg Hydroxide (Maalox) 15 ml PO Q4H PRN PRN Reason: Heartburn or Indigestion Albuterol/Ipratropium (Duoneb) 3 ml EZPAP [id number] [facility] Last Admin: 11/30/17 08:00 Dose: 3 ml Arformoterol Tartrate (Brovana) 15 mcg NEB BID [facility] Last Admin: 11/30/17 08:17 Dose: 15 mcg Artificial Tears (Tears Renewed 15ml Bottle) 0 drop EA EYE PRN PRN PRN Reason: Dry Eyes Aspirin (Aspirin Chewable) 81 mg PO DAILY [facility] Last Admin: 11/29/17 08:23 Dose: 81 mg Budesonide (Pulmicort Neb Solution) 0.5 mg NEB BID-RT [facility] Last Admin: 11/30/17 07:58 Dose: 0.5 mg Carvedilol (Coreg) 3.125 mg PO BID [facility] Last Admin: 11/29/17 20:11 Dose: 3.125 mg Cefdinir (Omnicef) 300 mg PO BID [facility] Stop: 12/05/17 21:01 Cholecalciferol (Vitamin D3) 1,000 units PO DAILY [facility] Last Admin: 11/29/17 08:22 Dose: 1,000 units Clopidogrel Bisulfate (Plavix) 75 mg PO DAILY [facility] Last Admin: 11/29/17 08:22 Dose: 75 mg Colchicine (Colcrys) 0.6 mg PO ASDIR [facility] Diltiazem HCl (Cardizem Cd) 180 mg PO BID [facility] Last Admin: 11/29/17 20:11 Dose: 180 mg Docusate Sodium (Colace) 100 mg PO BID [facility] Last Admin: 11/29/17 20:11 Dose: Not Given Enoxaparin Sodium (Lovenox) 40 mg SC 0900 [facility] Last Admin: 11/29/17 08:22 Dose: 40 mg Famotidine (Pepcid) 20 mg PO BID [facility] Last Admin: 11/29/17 20:10 Dose: 20 mg Folic Acid (Folvite) 1 mg PO DAILY [facility] Last Admin: 11/29/17 08:23 Dose: 1 mg Furosemide (Lasix) 40 mg SLOW IVP DAILY [facility] Last Admin: 11/29/17 08:22 Dose: 40 mg Guaifenesin (Mucinex) 1,200 mg PO Q12HR [facility] Last Admin: 11/29/17 20:10 Dose: 1,200 mg Hydralazine HCl (Apresoline) 10 mg SLOW IVP Q4H PRN PRN Reason: Systolic BP > 180 Hydroxychloroquine Sulfate (Plaquenil) 200 mg PO DAILY [facility] Last Admin: 11/29/17 08:22 Dose: 200 mg Levofloxacin (Levaquin) 500 mg PO 0600 [facility] Last Admin: 11/30/17 06:16 Dose: 500 mg Loratadine (Claritin) 10 mg PO DAILYPRN PRN PRN Reason: Sinus Symptoms Magnesium Hydroxide (Milk Of Magnesium) 30 ml PO DAILYPRN PRN PRN Reason: Constipation Metolazone (Zaroxolyn) 5 mg PO 0830 [facility] Last Admin: 11/29/17 08:23 Dose: 5 mg Mineral Oil/White Petrolatum (Eucerin Cream) 0 gm TOP BIDPRN PRN PRN Reason: Dry Skin Ondansetron HCl (Zofran) 4 mg IVP Q6H PRN PRN Reason: Nausea/Vomiting Ondansetron HCl (Zofran Odt) 4 mg PO Q6H PRN PRN Reason: Nausea/Vomiting Oseltamivir Phosphate (Tamiflu) 75 mg PO BID [facility] Stop: 12/04/17 09:01 Last Admin: 11/29/17 20:08 Dose: 75 mg Pantoprazole Sodium (Protonix) 40 mg PO 2100 [facility] Last Admin: 11/29/17 20:11 Dose: 40 mg Phenol (Chloraseptic [place] 180 Ml Bot) 0 ml PO PRN PRN PRN Reason: Sore Throat Prednisone (Prednisone) 40 mg PO QAM-[facility] Pregabalin (Lyrica) 50 mg PO BID [facility] Last Admin: 11/29/17 20:11 Dose: 50 mg Senna (Senokot) 2 tab PO HSPRN PRN PRN Reason: Constipation Sodium Chloride (Flush - Normal Saline) 10 ml IVF Q12HR [facility] Last Admin: 11/29/17 20:12 Dose: 10 ml Sodium Chloride (Flush - Normal Saline) 10 ml IVF PRN PRN PRN Reason: Saline Flush Sodium Chloride ([place] Nasal [place] 0.65%) 0 ml EA NARE QIDPRN PRN PRN Reason: Nasal Congestion
[2017-11-30] MEDS: Enoxaparin Sodium 40 MG/0.4 ML SYRINGE SC SCH (10:31)
[2017-11-30] MEDS: Cefepime 1 GM, Admixture Fee 1 EACH in Sterile Water 10 ML SLOW IVP SCH (10:31)
[2017-11-30] MEDS: Pregabalin 50 MG CAP PO SCH (10:32)
[2017-11-30] MEDS: Furosemide 40 MG/4 ML VIAL SLOW IVP SCH (10:32)
[2017-11-30] MEDS: Hydroxychloroquine Sulfate 200 MG TAB PO SCH (10:33)
[2017-11-30] MEDS: Docusate 100 MG CAP PO SCH (10:33)
[2017-11-30] MEDS: Metolazone 5 MG TAB PO SCH (10:33)
[2017-11-30] MEDS: guaiFENesin ER 600 MG TAB PO SCH (10:35)
[2017-11-30] MEDS: Folic Acid 1 MG TAB PO SCH (10:35)
[2017-11-30] MEDS: Famotidine 20 MG TAB PO SCH (10:35)
[2017-11-30] MEDS: Carvedilol 3.125 MG TAB PO SCH (10:36)
[2017-11-30] MEDS: Oseltamivir 75 MG CAP PO SCH (10:37)
[2017-11-30] MEDS: Clopidogrel Bisulfate 75 MG TAB PO SCH (10:37)
--- NOTE | 2017-11-30 11:58 | DIS ---
PRIMARY CARE PHYSICIAN: Dr. Montse Serrato DATE OF ADMISSION: 11/28/2017 DATE OF DISCHARGE: 11/30/2017 DISCHARGE DISPOSITION: [facility] home. PRIMARY DISCHARGE DIAGNOSES: 1. Acute on chronic systolic and diastolic congestive heart failure exacerbation. 2. Acute on chronic respiratory failure with hypoxia. 3. Community-acquired bacterial pneumonia. 4. Influenza A. 5. Chronic obstructive pulmonary disease exacerbation. 6. Demand ischemia. 7. Sepsis with acute organ dysfunction. SECONDARY DISCHARGE DIAGNOSES: 1. Severe aortic regurgitation. 2. Rheumatoid arthritis. 3. Obstructive sleep apnea. 4. Obesity with BMI 32. 5. Coronary artery disease. 6. CKD stage 3. 7. Hypertension. 8. Chronic obstructive pulmonary disease. 9. Chronic systolic and diastolic heart failure. 10. Physical deconditioning. PRIMARY PROCEDURE/OPERATION: None. RADIOLOGICAL INVESTIGATION: Chest x-ray on admission showed pulmonary vascular congestion. Repeat c hest x-ray showed cardiomegaly. SIGNIFICANT LABS: WBC 4.3, hemoglobin 9.1, platelets 130, sodium 143, potassium 3.4, BUN 56, creatin ine 1.22, glucose 234, calcium 9.8, AST 19, ALT 42, alkaline phosphatase 106, albumin 2.9. BNP 565.6 , troponin I 0.085. Urinalysis normal. Urine legionella and Streptococcal pneumonia antigen negativ e. Blood culture negative. Influenza A positive. DISCHARGE MEDICATIONS: Albuterol nebulization q.6h., Brovana 15 mcg nebulization b.i.d., aspirin 81 mg p.o. daily, Besivance ophthalmic drops t.i.d., Pulmicort nebulization twice daily, Coreg 3.125 mg p.o. b.i.d., Rocephin 2 gram IV daily as per Dr. Coleman, vitamin D3 1000 units p.o. daily, Plavix 75 m g p.o. daily, colchicine 0.6 mg p.o. as directed, Decadron 1.5 mg p.o. daily, Cardizem-CD 180 mg p.o. b.i.d., Colace 100 mg p.o. b.i.d., Uloric 40 mg p.o. daily, folic acid 0.8 mg p.o. daily, Lasix 40 m g p.o. daily, Mucinex 600 mg t.i.d. for 10 days, Plaquenil 200 mg p.o. daily, Levaquin 500 mg p.o. d aily for 7 days, Protonix 40 mg p.o. daily, prednisone 20 mg p.o. b.i.d. for 5 days and then 10 mg b. i.d. for 5 days and then continue Decadron, Lyrica 50 mg p.o. b.i.d., Rituxan IV as directed. Lisino pril 2.5 mg p.o. daily. Omnicef 300 mg twice daily for 5 days and Tamiflu 75 mg p.o. b.i.d. for 4 m ore days. CONTRAINDICATIONS: None. CODE STATUS: FULL CODE. INPATIENT CONSULTANTS: Dr. Noguera was consulted while in hospital. Dr. Simmons was consulted while in hospital. TEST RESULTS PENDING ON DISCHARGE: None. ALLERGIES: MORPHINE. DISCHARGE PLAN: Post hospital, the patient will follow up with primary care physician in 1 week. Th e patient will follow up with [facility]. The patient will follow up with Dr. Coleman as ins tructed. HOSPITAL COURSE: A 72-year-old male who is [facility] [place] [facility]. Patient is gettin g IV antibiotic therapy for his hand infection, duration is as per Dr. Coleman. At this time, the patient was admitted by Dr. Stone on 11/27/2017. Please see his H&P for furt her details. The patient was admitted for increasing shortness of breath. This patient had influenz a A positive. He was diagnosed with bronchitis versus pneumonia and subsequently he was having acute on chronic systolic and diastolic heart failure and COPD flareup. On admission he was meeting sepsis criteria as the patient had hypoxic respiratory failure and demand ischemia. He was meeting acute organ dysfunction criteria. This patient was admitted to telemetry floor. He was treated with broad spectrum antibiotic therapy with vancomycin, cefepime and Levaquin initially. Cardiology, Pulmonology were consulted while in hospital. Subsequently, his antibiotic t herapy was changed to p.o. Levaquin. This patient is already on Rocephin therapy even before admissi on because of his hand infection and that he will continue upon discharge. Duration of therapy as pe r previous instructions from Dr. Coleman. The patient was treated for influenza while in hospital. On discharge, we changed to Omnicef and Lev aquin as well as Tamiflu was also prescribed. Mucinex was also prescribed, tapering doses of prednis one was given. Pulmonary cleared him for discharge. This patient was up to his baseline from cardiac point of view and consultants cleared him for discharge. Overall, this patient is medically stable for discharge. Paperwork for discharge done. Discharge medication reconciliation done. The patient is seen and examined at bedside today. Please see my progress note from today for furthe r details as well. Total time spent on discharge day 31 minutes.
--- NOTE | 2017-11-30 12:05 | PRG ---
DATE OF SERVICE: 11/30/2017 SUBJECTIVE: This morning, he is weak. He is better. He is less short of breath. He is complaining of his feet. OBJECTIVE: VITAL SIGNS: His sats are 97% on 3 liters, respirations 16, temperature 97 and blood pressure 144/62 . CHEST: Decreased breath sounds without any wheezing. CARDIAC: Normal S1, S2. No gallops. ABDOMEN: Soft. No masses. LABORATORY DATA: Creatinine is 1.2, BUN is 56, BNP is 565. His white count is 4000, hemoglobin and hematocrit 9 and 29, platelet count is normal. IMPRESSION: Sepsis, renal failure, chronic obstructive pulmonary disease exacerbation, bronchitis an d severe deconditioning. PLAN: Continue aggressive PT, neb treatments and supportive care. We will switch over to oral antibiotics.
[2017-11-30 12:46] VITALS: BP 157/67; TEMP 97.9
[2017-11-30] MEDS ORDERED: Cefdinir 300 MG CAP PO SCH (21:00)
[2017-12-01] MEDS ORDERED: predniSONE 20 MG TAB PO SCH (08:00)
== END 2017-11-30 13:40 | DRG 871 ==
LOC: ERS 07:40 → 2NO 11-28 11:12
PROVIDERS: ADMIT Internal Medicine; ATTEND Internal Medicine
DX: A41.9 Sepsis, unspecified organism (principal); J10.08 Influenza due to other identified influenza virus with other specified pneumonia; J96.21 Acute and chronic respiratory failure with hypoxia; I50.43 Acute on chronic combined systolic (congestive) and diastolic (congestive) heart failure; I24.8 Other forms of acute ischemic heart disease; I42.9 Cardiomyopathy, unspecified; J15.9 Unspecified bacterial pneumonia; I95.9 Hypotension, unspecified; I13.0 Hypertensive heart and chronic kidney disease with heart failure and stage 1 through stage 4 chronic kidney disease, or unspecified chronic kidney disease; E83.52 Hypercalcemia; J44.0 Chronic obstructive pulmonary disease with (acute) lower respiratory infection; J44.1 Chronic obstructive pulmonary disease with (acute) exacerbation; Z51.5 Encounter for palliative care; I35.1 Nonrheumatic aortic (valve) insufficiency; N18.3 Chronic kidney disease, stage 3 (moderate); R65.20 Severe sepsis without septic shock; M06.9 Rheumatoid arthritis, unspecified; G47.33 Obstructive sleep apnea (adult) (pediatric); E66.9 Obesity, unspecified; Z68.32 Body mass index [BMI] 32.0-32.9, adult; I25.10 Atherosclerotic heart disease of native coronary artery without angina pectoris; Z95.1 Presence of aortocoronary bypass graft; Z96.653 Presence of artificial knee joint, bilateral; Z95.0 Presence of cardiac pacemaker; R31.9 Hematuria, unspecified; Z95.5 Presence of coronary angioplasty implant and graft; D64.9 Anemia, unspecified; I25.2 Old myocardial infarction; Z96.641 Presence of right artificial hip joint; Z96.612 Presence of left artificial shoulder joint
CPT/HCPCS: 36415; 71045; 80048; 80053; 81003; 81015; 82553; 82805; 83605; 83735; 83880; 84484; 85025; 87040; 87070; 87077; 87186; 87205; 87899; 90715; 93005; 94640; 96365; 96366; 96367; 96375; 96376; A4216; J0692; J1650; J1940; J1956; J2543; J2920; J3370; J7050; J7620; J7626; S0028

== ENCOUNTER 2017-12-06 12:11 | Inpatient (IN) | payer MEDICARE ==
--- NOTE | 2017-12-06 12:57 | RAD ---
CHEST 1 VIEW: HISTORY: Dyspnea. COMPARISON: Chest 1 view 11/30/17. FINDINGS: Lungs are hypoinflated. Some airspace opacities in both lower lobes. No pneumothorax. Dual-lead pacer is present. IMPRESSION: Bibasilar airspace opacity versus pneumonia or atelectasis. POS: [facility]
[2017-12-06 13:01] LABS: #Eosinphils 0.1 thou/uL (0.0-0.7); #Lymphocytes 0.8 thou/uL (1.20-3.40); #Monocytes 0.6 thou/uL (0.11-0.59); #Neutrophils 11.8 thou/uL (1.40-6.50); %Basophils 0.1 % (0.0-1.0); %Eosinophils 0.8 % (0.0-10.0); %Lymphocytes 6.2 % (21.0-51.0); %Monocytes 4.1 % (0.0-10.0); %Neutrophils 88.8 % (42.0-75.0); Mean Corpuscular HGB CONC 30.2 g/dL (32.0-36.0); Mean Corpuscular Hemoglobin 30.3 pg (27.0-31.0); Mean Platelet Volume 7.3 fL (7.4-10.4); Platelet Count 284 thou/uL (130-400); RBC Distribution Width 15.2 % (11.5-14.5); Red Blood Cell (RBC) Count 3.96 mill/uL (4.70-6.10); White Blood Cell (WBC) Count 13.3 thou/uL (4.8-10.8)
[2017-12-06 13:07] LABS: Actual Bicarbonate (HCO3a) 39.2 mEq/L (22-26); Base Excess (BEa) 9.3 mEq/L (0 (+/-) 2.5); CO2 Tension 89.3 mmHg (35.0-45.0); pH, Arterial 7.26 (7.35-7.45)
[2017-12-06 13:08] LABS: Hematocrit-ABG 37.1 % (42.0-52.0); Hemoglobin (Hb) 11.4 g/dL (14.0-18.0)
[2017-12-06 13:09] LABS: Analyzer IN Cardio ER; Calcium, Ionized 1.5 mmol/L (1.12-1.30); Puncture Site LRA
[2017-12-06 13:10] LABS: ALV-art Gradient 219.775 (0-20)
[2017-12-06 13:29] LABS: CKMB 0.8 ng/mL (0-6.6); Troponin I 0.056 ng/mL (< 0.028)
[2017-12-06 13:32] LABS: ALT (SGPT) 69 U/L (8-55); AST (SGOT) 33 U/L (5-34); Albumin 3.4 g/dL (3.4-4.8); Alkaline Phosphatase 106 U/L (40-150); Anion Gap 12 mmol/L (10-20); BUN (Urea Nitrogen) 89 mg/dL (8.4-25.7); Bilirubin, Total 0.3 mg/dL (0.2-1.2); CK (CPK) 15 U/L (30-200); Calc. Creatinine Clearance 0 mL/min (70-130); Carbon Dioxide 34 mmol/L (23-31); Chloride 101 mmol/L (98-107); Estimated GFR-MDRD 42; Globulin 2.7 g/dL (2.4-3.5); Glucose 180 mg/dL (83-110); Potassium 5.2 mmol/L (3.5-5.1); Protein, Total 6.1 g/dL (5.8-8.1); Sodium 142 mmol/L (136-145)
--- NOTE | 2017-12-06 13:33 | CT ---
CT HEAD NONCONTRAST: Date: 12/06/17 HISTORY: Altered mental status. COMPARISON: 04/17/17. FINDINGS: There is no evidence of acute intracranial hemorrhage or infarct. The ventricles appear normal in siz e, shape, and position. Mild chronic ischemic small vessel disease and diffuse cortical atrophy are s imilar in appearance to the prior exam. IMPRESSION: No acute intracranial abnormalities are demonstrated on noncontrast CT head. POS: [facility]
[2017-12-06] MEDS ORDERED: Norepinephrine 8 MG/0.9% NS 0 ML ONE (13:39)
[2017-12-06] MEDS ORDERED: Piperacillin/Tazobactam 4.5 GM in Sodium Chloride 0.9% 100 ML IVPB SCH (14:15)
[2017-12-06 14:23] LABS: Bilirubin Negative (Negative); Blood, Urine Negative (Negative); Clarity CLEAR (Clear); Glucose, Urine (Dipstick) Negative (Negative); Leukocyte Negative (Negative); Nitrite Negative (Negative); Protein, Urine (Dipstick) Negative (Neg-Trace); Specific Gravity, Urine 1.019 (1.002-1.036); Urobilinogen 0.2 mg/dL (0.2-1.0); pH, Urine 5.5 (5.0-9.0)
[2017-12-06 16:29] LABS: Troponin I 0.058 ng/mL (< 0.028)
--- NOTE | 2017-12-06 18:21 | HP ---
PRIMARY CARE PHYSICIAN: Montse Serrato M.D. CHIEF COMPLAINT: Lethargy and respiratory distress. HISTORY OF PRESENT ILLNESS: This is a 72-year-old white male who has recently been in and out of the hospital with an infection in his hand as well as recurrent respiratory distress problems. He had a n admission for hand infection with MSSA back in September of last year. He had a prolonged hospital course complicated by some respiratory failure from hypoventilation from his obstructive sleep apnea as well as his congestive heart failure exacerbation. He was eventually discharged to a skilled nurs ing facility. He then later on developed a fever and respiratory distress and was sent here on 11/27, was diagnosed with influenza as well as congestive heart failure. The patient was diagnosed w ith influenza as well as CHF exacerbation. He was treated with Levaquin and Tamiflu along with havin g diuresis for his CHF, it did improve over the course of hospitalization, though according to the ling huerta's , she did not feel like he ever became as alert as he had previously. He was eventually discharged to senior care on oxygen, which he has not previously been on and had not been able to ge t up or ambulate at all. He has not been doing any of therapy due to lack of energy and not cooperat ing with doing it. Today, patient was noted to be having increased work of breathing and decreased r esponsiveness, so he was brought to the emergency room. In the ER, he was found to be in hypercapnic respiratory failure. He was put on BiPAP with a little bit of improvement in his mental status and significant improvement in his ventilation. Chest x-ray showed possible lower lobe infiltrates versu s atelectasis, but nothing significant. He does have a little bit of an elevated white blood cell co unt, which he has not had previously, even during his hospitalization for pneumonia earlier in the [facility]. He is being admitted for possible post-influenza pneumonia. Of note, the patient's brain natri uretic peptide is actually significantly decreased from 1999 now down to 200. PAST MEDICAL HISTORY: 1. Chronic systolic and diastolic congestive heart failure. 2. Chronic respiratory failure with hypoxia and hypercapnia. 3. Chronic obstructive pulmonary disease. 4. Severe aortic regurgitation with question of infectious endocarditis of the aortic valve. 5. Rheumatoid arthritis. 6. Obstructive sleep apnea. 7. Obesity. 8. Coronary artery disease. 9. Chronic kidney disease stage 3. 10. Hypertension. 11. Physical deconditioning. 12. Gout. 13. Rheumatoid arthritis. 14. Hypercalcemia. PAST SURGICAL HISTORY: 1. CABG. 2. Stent placement x2. 3. Bilateral total knee replacement. 4. Carpal tunnel surgery. 5. Rotator cuff surgery. 6. Pacemaker placement. 7. Recent surgery on the left hand and right hand for removal of gout crystals. SOCIAL HISTORY: The patient has never smoked. No alcohol or illicit drug use. He is . ALLERGIES: MORPHINE. FAMILY HISTORY: Father had emphysema. MEDICATIONS: 1. Albuterol nebulizer q.6 hours. 2. Brovana 15 mcg twice a day. 3. Aspirin 81 mg daily. 4. Besivance ophthalmic drops 3 times a day. 5. Pulmicort nebulizer twice a day. 6. Coreg 3.125 mg twice a day. 7. Rocephin 2 grams IV daily as per Dr. Coleman. 8. Vitamin D3 1000 units p.o. daily. 9. Plavix 75 mg daily. 10. Colchicine 0.6 mg p.o. twice a week. 11. Decadron 1.5 mg daily. 12. Cardizem-CD 180 mg twice a day. 13. Colace 100 mg twice a day. 14. Uloric 40 mg daily. 15. Folic acid 0.8 mg daily. 16. Lasix 40 mg daily. 17. Mucinex 600 mg 3 times a day. 18. Plaquenil 200 mg daily. 19. Protonix 40 mg daily. 20. Lyrica 50 mg twice a day. 21. Rituxan IV as directed. 22. Lisinopril 2.5 mg daily. REVIEW OF REVIEW OF SYSTEMS: The patient is too somnolent to give a full review of systems. All his tory is from his who was with him extensively and so unable to obtain a full review of systems. has not noticed any fever or chills, not heard anything like that from the senior care. She h as noticed that he has been very weak, had a persistent cough since his discharge that is deep in his chest, nonproductive and he has seemed to have increased trouble breathing ever since discharge, but worse today. No other specific problems that she knows about. PHYSICAL EXAMINATION: VITAL SIGNS: Blood pressure 108/42, pulse 68, respirations 22, temperature 97.7, O2 sat 100%, curren tly on BiPAP. GENERAL: This is an obese white male, very sleepy, but arousable and is able to give his name, but n ot where he is currently or any other history. HEENT: Eyes, pupils equal, round, and reactive to light. Oropharynx is clear, a little bit dry from the BiPAP mask currently. NECK: Supple, no lymphadenopathy, no thyroid nodules or enlargement, no JVD. HEART: Regular rate and rhythm, no murmurs. LUNGS: Decent air movement throughout on the BiPAP. I do not hear any focal wheezing or crackles. ABDOMEN: Soft, obese, nontender to palpation, normoactive bowel sounds, no hepatosplenomegaly or oth er masses. EXTREMITIES: No clubbing or cyanosis. He does have some chronic lower extremity edema, though he do es not have significant amount currently. SKIN: No rashes or other lesions. He does have a darkening of his shins consistent with chronic robin ma. His incisions on his hands are well healed from his previous surgery. NEUROLOGIC: The patient does move all extremities equally, but with poor strength. No focal neurolo gic findings. LABORATORY DATA: CBC with white blood cell count of 13.3, neutrophilic predominance of 88%, hemoglob in 12, hematocrit 39, and platelet count 284. Blood gas did show a pH of 7.26 with a pCO2 of 89, pO2 was 97, this was on when he was first put on BiPAP. Complete metabolic panel was notable for potass ium of 5.2, carbon dioxide of 34, BUN of 89, creatinine of 1.62, glucose of 180, calcium 111 and ALT of 69. Remainder of the CMP was normal. Lactic acid was negative. Brain natriuretic peptide of 277 , which is actually low, troponin was indeterminate at 0.056. Urinalysis showed no evidence of infec tion. X-ray, I did review the chest x-ray in the emergency room along with the radiologist's report. This does show some questionable mild bibasilar airspace density consistent with either atelectasis or mild infiltrate. CT of the brain done in the emergency room shows no acute intracranial abnormal ities or infarct. ASSESSMENT AND PLAN: 1. Acute on chronic hypercapnic respiratory failure. The patient seems to be doing little bit jody r on BiPAP, but still very sleepy, concern for continued CO2 narcosis, probably should wean his oxyge n down some to stimulate his breathing as well as continuing BiPAP. The patient may eventually need intubation if he does not improve in his ventilation. We will consult Pulmonology. Believe, Dr. Chaz christopher is the patient's media analyst, Dr. Mratinez is on-call today. 2. Possible pneumonia. The patient did have methicillin-resistant Staphylococcus aureus grew out of sputum after his last hospitalization. He was on Levaquin and Tamiflu; however, he was not started on any methicillin-resistant Staphylococcus aureus antibiotics, so we will put him on vancomycin curr ently. We will continue his Rocephin as well until it is discontinued by Dr. Coleman. We will ask Dr. Coleman to see the patient. 3. Chronic systolic and diastolic congestive heart failure. The patient does not appear to be curre ntly in exacerbation and he may actually tolerate a little bit of fluids. His blood pressure had donnie pped a little bit in the emergency room, but now back and now it drops again, then we can give him a little bit of fluids. No evidence of acute failure at this time. 4. Methicillin-sensitive Staphylococcus aureus hand infection and question of infective endocarditis . The patient is currently on IV Rocephin. We will continue this and consult Dr. Coleman. 5. Acute exacerbation of chronic kidney disease. Creatinine down to 1.62. The patient may actually be a little bit over diuresed. He does also have a little bit of hyperkalemia. We will give patien t some gentle fluids. We will monitor his potassium closely. We will continue his baseline Lasix to help decrease that. 6. Gastrointestinal prophylaxis. The patient on Pepcid twice a day. 7. Deep venous thrombosis prophylaxis. We will put the patient on Lovenox and sequential compressio n devices. CODE STATUS: This patient is Full Code. Should he be incapacitated, his power of compliance attorney is his wi marge Bhat.
[2017-12-06] MEDS ORDERED: Ondansetron ODT 4 MG TAB SL PRN (18:23)
[2017-12-06] MEDS ORDERED: Ondansetron HCl/PF 4 MG/2 ML Vial IVP PRN ×2 (18:23→19:01)
[2017-12-06] MEDS ORDERED: Sodium Chloride 0.9% 1,000 ML IV SCH (19:01)
[2017-12-06] MEDS ORDERED: Ondansetron ODT 4 MG TAB PO PRN (19:01)
[2017-12-06] MEDS ORDERED: Acetaminophen 650 MG Suppository PR PRN (19:01)
[2017-12-06] MEDS ORDERED: cefTRIAXone\\ROCEPHIN 2 GM VIAL IVPB SCH (19:01)
[2017-12-06] MEDS ORDERED: Acetaminophen 325 MG TAB PO PRN (19:01)
[2017-12-06] MEDS ORDERED: Colchicine 0.6 MG TAB PO SCH (19:01)
[2017-12-06] MEDS ORDERED: Bisacodyl 5 MG TAB PO PRN (19:01)
[2017-12-06 19:52] LABS: Troponin I 0.061 ng/mL (< 0.028)
[2017-12-06] MEDS ORDERED: cefTRIAXone\\ROCEPHIN 2 GM in Sodium Chloride 0.9% 100 ML IVPB SCH (20:00)
[2017-12-06] MEDS: Famotidine/PF 20 mg/2ml Vial SLOW IVP SCH (20:41)
[2017-12-06] MEDS: guaiFENesin ER 600 MG TAB PO SCH (20:42)
[2017-12-06] MEDS: Docusate 100 MG CAP PO SCH (20:42)
[2017-12-06] MEDS ORDERED: Vancomycin HCl 1 GM in Premix Bag 1 BAG IVPB SCH (21:00)
[2017-12-06] MEDS: Budesonide 0.5 MG/2 ML NEB NEB SCH (21:51)
--- NOTE | 2017-12-06 22:46 | CON ---
DATE OF CONSULTATION: 12/06/2017 HISTORY OF PRESENT ILLNESS: Mr. Ocampo is a very pleasant 72-year-old male. The history is provid ed mainly from the since he has been noninvasively ventilated in the Emergency Department. He has been followed by Dr. Marquis in our group. He was recently hospitalized after admission on 11/27 till 11/30. On 11/27, he presented with shortn ess of breath. He was admitted with a febrile illness on the with a feeling that he might have, COPD exacerbatio n triggered by a viral illness. He was seen by Dr. Noguera on the and . Dr. Noguera felt he had influenza and bronchitis perhaps an early pneumonia. He was switched to p.o. an timicrobial therapy. His says when he got back over to [facility]; he did not really do well. She says he is not vora ving him wear his CPAP at night. He also has been "rattling" in his chest for several days. Reviewing back through Dr. Marquis's notes in October, it was felt that Mr. Ocampo had a relative adrenal insufficiency, severe rheumatoid arthritis and extreme deconditioning after debridement of th e soft tissue infection in his hand. He was seen at admission on 10/28 for the first time by Dr. Marquis. He was febrile and lethargic an d was having apneic spells. He was treated with BiPAP by Dr. Marquis. He felt to have early sepsis from what I can tell reviewing the notes. He improved with BiPAP and did not require intubation. He did not have debridement by Dr. Briceño of his hand on 10/24. He had synovectomy of the wrist flexor compartment, arthrotomy of the wrist and drainage of the flexo r tenosynovitis of his fourth finger and debridement of an open fracture of his fifth finger on the l eft. Reviewing into the progress notes, he was also seen by Dr. Simmons during that admission for acute on chronic systolic and diastolic heart failure. 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 He has felt a possibly to have endocarditis. There is staph isolated from his left hand, but this was oxacillin sensitive staph. His said th at they tried to isolate him at [facility] claiming that that he had the MRSA, but Dr. Virginia avzquez straightened this out for Ms. Ocampo. Blood cultures done on 10/26 were negative. Blood cultures done on 11/22 were negative. One out of two blood cultures on 11/27 was positive for Corynebacterium species. No other positive blood cultur es were seen. He had a flu swab done again today, which is positive for influenza A. This is probab ly a residual positive swab in my opinion. Transesophageal echocardiogram done 10/29 showed a flail right coronary cusp creating severe aortic i nsufficiency at the level of the right cusp. His EF was estimated at 45%. He had moderate mitral re gurgitation and moderate tricuspid regurgitation on that echo. PAST MEDICAL HISTORY: Remarkable for; 1. Rheumatoid arthritis. 2. Hypertension. 3. Degenerative arthritis. 4. Chronic kidney disease. 5. Chronic venous stasis. 6. History of coronary artery bypass grafting in the past. 7. History of a post-bypass sternotomy infection. 8. History of obstructive lung disease. 9. Lipid disorder. 10. History of reflux disease. 11. History of pacemaker implantation. He gets confused with morphine. SOCIAL HISTORY: He is a former smoker, does not smoke now, not a daily drinker. FAMILY HISTORY: COPD and asthma. REVIEW OF SYSTEMS: Not accurately obtainable. His says he has just been a little more short of breath and sounded congested in his chest prior to coming over today. Remainder of the review of sy stems are negative. PHYSICAL EXAMINATION: GENERAL: Noninvasively ventilated. VITAL SIGNS: Blood pressure is 130s to 140s in the Emergency Department. His heart rates in the 90s to one teens. He is afebrile. Respiratory rate was in the mid to high 20s. HEENT: Pupils react. Sclerae is anicteric. NECK: Supple. LUNGS: Remarkable for mild rhonchi bilaterally. HEART: Regular rhythm. S1 and S2 are normal. ABDOMEN: Soft and nontender. No guarding. EXTREMITIES: Without asymmetry. RADIOGRAPHIC FINDINGS: Chest radiograph reviewed by me shows bibasilar haziness. Compared to his la st film, this film was less penetrated. There may be some infiltrates at his bases, but I can see th e outlines of his diaphragms. There may be a retrocardiac infiltrate on the left. IMPRESSION: 1. ? pneumonia. 2. Chronic obstructive pulmonary disease and asthma with respiratory failure. 3. Extreme deconditioning. His says he has been resistant to sitting up in a chair and ambulat ing. I have explained that there is a big loss of muscle function for everyday; he is completely at bed rest. 4. Encephalopathy with the CT done of his head this admission, which showed no hemorrhage, no new fi ndings. 5. History of pacemaker. 6. History of an ejection fraction of 45%. 7. History of coronary bypass grafting with a history of a sternal wound infection. 8. History of methicillin-sensitive staph infection of his hand requiring surgery by Dr. Briceño. PLAN: Continue noninvasive ventilation. He will be observed in the critical care unit. He will rec eive nebulizer treatments, steroids and empiric antimicrobial therapy. CRITICAL CARE TIME: 30 minutes.
[2017-12-07] MEDS ORDERED: Vancomycin HCl 1 GM in Premix Bag 1 BAG IVPB SCH (02:00)
[2017-12-07 03:16] VITALS: BMI 32.0
[2017-12-07 05:31] LABS: #Eosinphils 0.1 thou/uL (0.0-0.7); #Lymphocytes 0.6 thou/uL (1.20-3.40); #Monocytes 0.4 thou/uL (0.11-0.59); #Neutrophils 11.6 thou/uL (1.40-6.50); %Eosinophils 0.8 % (0.0-10.0); %Lymphocytes 4.4 % (21.0-51.0); %Monocytes 2.9 % (0.0-10.0); Hemoglobin 10.3 g/dL (14.0-18.0); Mean Corpuscular HGB CONC 30.7 g/dL (32.0-36.0); Mean Corpuscular Hemoglobin 30.5 pg (27.0-31.0); Mean Corpuscular Volume 99.3 fl (80.0-94.0); Mean Platelet Volume 7.2 fL (7.4-10.4); Platelet Count 212 thou/uL (130-400); RBC Distribution Width 15.2 % (11.5-14.5); Red Blood Cell (RBC) Count 3.39 mill/uL (4.70-6.10); White Blood Cell (WBC) Count 12.6 thou/uL (4.8-10.8)
[2017-12-07 05:48] LABS: Anion Gap 12 mmol/L (10-20); BUN (Urea Nitrogen) 92 mg/dL (8.4-25.7); Calc. Creatinine Clearance 58 mL/min (70-130); Calcium 10.4 mg/dL (7.8-10.44); Carbon Dioxide 35 mmol/L (23-31); Chloride 103 mmol/L (98-107); Estimated GFR-MDRD 40; Glucose 150 mg/dL (83-110); Potassium 4.8 mmol/L (3.5-5.1); Sodium 145 mmol/L (136-145)
[2017-12-07] MEDS: Arformoterol 15 MCG/2 ML NEB NEB SCH ×2 (08:40→18:21)
[2017-12-07 08:41] LABS: Magnesium 2.1 mg/dL (1.6-2.6)
[2017-12-07] MEDS: Budesonide 0.5 MG/2 ML NEB NEB SCH ×2 (08:42→18:22)
[2017-12-07] MEDS ORDERED: Enoxaparin Sodium 40 MG/0.4 ML SYRINGE SC SCH (09:00)
--- NOTE | 2017-12-07 09:19 | PDOC.PULCC ---
CCU Progress Note: Subj/Obj - Subjective Date: 12/07/17 Time: 09:16 Subjective: Feels better. Off bipap this am. Has no complaints - Objective Allergies/Adverse Reactions: Allergies Allergy/AdvReac Type Severity Reaction Status Date / Time morphine Allergy Verified 06/28/17 16:03 Medications: Current Medications Acetaminophen (Tylenol) 650 mg PO Q4H PRN PRN Reason: Headache/Fever or Pain Acetaminophen (Tylenol) 650 mg LA Q4H PRN PRN Reason: Headache/Fever or Pain Arformoterol Tartrate (Brovana) 15 mcg NEB BID-RT [facility] Last Admin: 12/07/17 08:40 Dose: 15 mcg Aspirin (Aspirin Chewable) 81 mg PO DAILY [facility] Bisacodyl (Dulcolax) 10 mg PO DAILYPRN PRN PRN Reason: Constipation Budesonide (Pulmicort Neb Solution) 0.5 mg NEB BID [facility] Last Admin: 12/07/17 08:42 Dose: 0.5 mg Cholecalciferol (Vitamin D3) 1,000 units PO DAILY [facility] Clopidogrel Bisulfate (Plavix) 75 mg PO DAILY [facility] Colchicine (Colcrys) 0.6 mg PO ASDIR [facility] Dexamethasone (Decadron) 1.5 mg PO DAILY [facility] Docusate Sodium (Colace) 100 mg PO BID [facility] Last Admin: 12/06/17 20:42 Dose: 100 mg Enoxaparin Sodium (Lovenox) 40 mg SC 0900 [facility] Famotidine (Pepcid) 20 mg SLOW IVP 2100 [facility] Last Admin: 12/06/17 20:41 Dose: 20 mg Folic Acid (Folvite) 1 mg PO DAILY [facility] Furosemide (Lasix) 40 mg PO DAILY-AC [facility] Guaifenesin (Mucinex) 600 mg PO TID [facility] Last Admin: 12/06/17 20:42 Dose: 600 mg Hydroxychloroquine Sulfate (Plaquenil) 200 mg PO DAILY [facility] Sodium Chloride (Normal Saline 0.9%) 1,000 mls @ 50 mls/hr IV .Q20H [facility] Last Admin: 12/06/17 20:35 Dose: 1,000 mls Ceftriaxone Sodium 2 gm/ (Sodium Chloride) 100 mls @ 200 mls/hr IVPB 2000 [facility] Last Admin: 12/06/17 20:35 Dose: 100 mls Vancomycin HCl 1 gm/ Device 200 mls @ 200 mls/hr IVPB 0200,1400 [facility] Last Admin: 12/07/17 01:37 Dose: 200 mls Influenza Virus Vaccine (Fluzone High-Dose Syr) 0.5 ml IM .ONCE ONE Stop: 12/08/17 09:01 Methylprednisolone Sodium Succinate (Solu-Medrol) 20 mg IVP Q6HR [facility] Last Admin: 12/07/17 04:58 Dose: 20 mg Miscellaneous Medication (Pharmacy To Dose) 0 each IVPB PRN PRN PRN Reason: [facility] Pharmacy to Dose Ondansetron HCl (Zofran Odt) 4 mg PO Q6H PRN PRN Reason: Nausea/Vomiting Ondansetron HCl (Zofran) 4 mg IVP Q6H PRN PRN Reason: Nausea/Vomiting Besifloxacin Hcl [ Besivance Ophth Susp ] 1 Drop 1 each EA EYE TID [facility] Pneumococcal 13-Valent Conj Vacc (Prevnar) 0.5 ml IM .ONCE ONE Stop: 12/08/17 09:01 MAR Reviewed: Yes Vital Signs and I&O: Vital Signs Temp 98.2 F 12/07/17 03:00 Pulse 94 12/07/17 08:40 Resp 23 H 12/07/17 08:40 BP Pulse Ox 99 12/07/17 08:40 Intake & Output 12/06/17 12/07/17 12/07/17 18:59 06:59 18:59 Intake Total 700 Output Total 750 Balance -50 Weight 229 lb 4.492 oz Intake: Intake, IV Amount 700 Sodium Chloride 0.9% 1, 700 000 ml @ 50 mls/hr IV . Q20H [facility] Rx#:[id number] Output: Urine 0 Output, Begum 750 Other: Voiding Method Indwelling Catheter # Bowel Movements 0 CCU Progress Note: Exam - Physical Exam Constitutional: NAD HEENT: PERRLA, moist MMs Neck: no nodes, no JVD Cardiovascular: RRR, no significant murmur Respiratory: rales Gastrointestinal: soft, non-tender Musculoskeletal: edema present Neurological: non-focal, moves all 4 limbs Lymphatic: no nodes Psychiatric: normal affect, A&O x 3 Skin: no rash Deviation from normal: has severe RA changes in hands - Labs Result Diagrams: 12/07/17 04:50 12/07/17 04:50 Lab results: Laboratory Results - last 24 hr 12/06/17 12/07/17 12/07/17 19:10 04:50 04:50 WBC 12.6 H RBC 3.39 L Hgb 10.3 L Hct 33.7 L MCV 99.3 H MCH 30.5 MCHC 30.7 L RDW 15.2 H Plt Count 212 MPV 7.2 L Neutrophils % 92.0 H Lymphocytes % 4.4 L Monocytes % 2.9 Eosinophils % 0.8 Basophils % 0.0 Neutrophils # 11.6 H Lymphocytes # 0.6 L Monocytes # 0.4 Eosinophils # 0.1 Basophils # 0.0 Sodium 145 Potassium 4.8 Chloride 103 Carbon Dioxide 35 H Anion Gap 12 BUN 92 H Creatinine 1.68 H Estimated GFR (MDRD) 40 Glucose 150 H Calcium 10.4 Phosphorus Magnesium Troponin I 0.061 H 12/07/17 04:50 WBC RBC Hgb Hct MCV MCH MCHC RDW Plt Count MPV Neutrophils % Lymphocytes % Monocytes % Eosinophils % Basophils % Neutrophils # Lymphocytes # Monocytes # Eosinophils # Basophils # Sodium Potassium Chloride Carbon Dioxide Anion Gap BUN Creatinine Estimated GFR (MDRD) Glucose Calcium Phosphorus 3.0 Magnesium 2.1 Troponin I CCU Progress Note: A/P - Problems (1) Acute respiratory failure with hypoxia Current Visit: Yes Status: Acute Code(s): J96.01 - ACUTE RESPIRATORY FAILURE WITH HYPOXIA (2) COPD exacerbation Current Visit: Yes Status: Acute Code(s): J44.1 - CHRONIC OBSTRUCTIVE PULMONARY DISEASE W (ACUTE) EXACERBATION (3) Influenza A Current Visit: Yes Status: Acute Code(s): J10.1 - FLU DUE TO OTH IDENT INFLUENZA VIRUS W OTH RESP MANIFEST (4) Rheumatoid arthritis Current Visit: Yes Status: Chronic Code(s): M06.9 - RHEUMATOID ARTHRITIS, UNSPECIFIED Qualifiers: Rheumatoid arthritis location: multiple sites - Plan Plan: Move to IMCU continue Bipap as needed steroids, nebs, abx diuresis
[2017-12-07] MEDS: Folic Acid 1 MG TAB PO SCH (09:53)
[2017-12-07] MEDS: Clopidogrel Bisulfate 75 MG TAB PO SCH (09:54)
[2017-12-07] MEDS: Furosemide 40 MG TAB PO SCH (09:54)
[2017-12-07] MEDS: guaiFENesin ER 600 MG TAB PO SCH ×3 (09:54→21:15)
[2017-12-07] MEDS: Docusate 100 MG CAP PO SCH ×2 (09:54→21:15)
[2017-12-07] MEDS: Hydroxychloroquine Sulfate 200 MG TAB PO SCH (09:55)
[2017-12-07] MEDS ORDERED: Vancomycin HCl 1.5 GM in Sodium Chloride 0.9% 250 ML 300 ML IVPB SCH (12:00)
--- NOTE | 2017-12-07 15:54 | CON ---
DATE OF CONSULTATION: 12/07/2017 CRITICAL CARE NOTE HISTORY OF PRESENT ILLNESS: Patient is a 72-year-old gentleman who presented with altered mental sta tus. The patient has a long history of coronary artery disease. He has previously undergone coronar y bypass graft surgery. He also has had placement of an electronic ventricular pacemaker. The patie nt has a history of paroxysmal atrial fibrillation. Patient most recently was found to have severe a ortic regurgitation and he has also undergone PTCA and stent placement and is on Plavix and aspirin. The patient was felt to have had possible endocarditis. He was recently hospitalized with influenza . He was treated in the hospital and was in rehabilitation when he became confused. He was noted to have marked CO2 retention and admitted for further evaluation. The patient denies having any chest discomfort or palpitations. PAST MEDICAL HISTORY: Significant for, 1. Coronary artery disease. 2. Aortic regurgitation. 3. Hypertension. 4. Emphysema. 5. Sleep apnea. 6. Chronic renal insufficiency. 7. History of pacemaker placement. PAST SURGICAL HISTORY: Knee surgery, carpal tunnel surgery, rotator surgery. SOCIAL HISTORY: Nonsmoker. ALLERGIES: MORPHINE. MEDICATIONS: See nursing list. PHYSICAL EXAMINATION: GENERAL: This is an ill-appearing gentleman with blood pressure of 117/45, heart rate 110 and irregu lar. NECK: Showed no jugular venous distention. LUNGS: Coarse breath sounds bilateral. HEART: Regular rate and rhythm, normal S1 and S2 with a 1/6 systolic murmur. ABDOMEN: Nondistended. EXTREMITIES: Showed multiple ecchymoses. LABORATORY DATA AND IMAGING DATA: Sodium 145, potassium 4.8, chloride 103, bicarbonate 35, BUN 19, c reatinine is 1.68, glucose is 150, troponin 0.061. White blood cell count 12.6, hemoglobin 10.3, hem atocrit 33.7, and platelets 212. EKG revealed atrial fibrillation with rapid ventricular response an d electronic ventricular pacemaker. IMPRESSION: 1. Atrial fibrillation, paroxysmal. 2. History of coronary artery disease, status post percutaneous transluminal coronary angioplasty an d stent placement. 3. History of coronary bypass graft surgery. 4. Severe aortic regurgitation. 5. History of pacemaker placement. 6. Renal insufficiency. 7. Hypertension. 8. CO2 retention secondary to sleep apnea. This gentleman presents with influenza and CO2 retention. He has paroxysmal atrial fibrillation with a rapid ventricular response. From a cardiac standpoint, we will start on Lovenox. We will continu e Lovenox long-term anticoagulation. Will need to be discussed with the patient. We will follow thi s patient with you through his hospitalization. This is a 40-minute critical care note.
--- NOTE | 2017-12-07 16:23 | CON ---
DATE OF CONSULTATION: 12/07/2017 REASON FOR CONSULTATION: Respiratory complications associated with influenza A infection with readmi parminder. HISTORY OF PRESENT ILLNESS: A 72-year-old well known to us from prior admissions whom I have seen in the past and the most recent admission in October when he presented with left hand infection second jn to methicillin-susceptible Staphylococcus aureus. The patient remained in the hospital for a pro tracted period of time and he was readmitted from rehabilitation with influenza A infection on 2017 and now he was brought back from rehab because of lethargy and tachypnea and brought to the [facility] room where he was found to be in hypercapnic respiratory insufficiency, put on BiPAP and chest x-ray showed bibasilar infiltrates, which could be either edema, interstitial edema or some early inf iltrate. Currently, Mr. Ocampo in the ICU, is getting some physical therapy. His is in the r oom with him and he recognized me and still remembers who I am, my name etc., and follows commands. Denies headaches. Still with quite a bit of intermittent coughing spells. It sounds like he has jolanta e secretions in the upper airways. No chest pain, no abdominal pain, no diarrhea, no genitourinary s ymptoms. PAST MEDICAL HISTORY: Cardiomyopathy, hypercapnic respiratory insufficiency, COPD, rheumatoid arthri tis on immunosuppressive medication, renal insufficiency, venous stasis, prior bypass graft surgery, post-bypass sternotomy infection, pacemaker placement and left-sided hand infection secondary to meth icillin susceptible Staph aureus as well as associated gouty arthropathy, and recent influenza A infe ction. ALLERGIES: MORPHINE, mostly confusional state, not true allergic reaction. SOCIAL HISTORY: Former smoker. FAMILY HISTORY: COPD and asthma. CURRENT MEDICATIONS: Tylenol, Brovana, aspirin, Dulcolax, Pulmicort, ceftriaxone, colchicine, Decadr on, Colace, Lovenox, Pepcid, Folvite, Lasix, Mucinex, Plaquenil, methylprednisolone, and vancomycin. PHYSICAL EXAMINATION: VITAL SIGNS: T-max 98.5, BP 117/45, pulse 105, respirations 18, O2 sat 100%. SKIN: Some erythema in the scrotal area probably intertriginous maceration plus Susan infection, l ittle bit of bruising in one of the heels. There is a Susan infection in the perianal, gluteal reg ion, shallow ulceration in the medial aspect of one of the knees and hyperpigmentation of the skin of the legs, right and left side secondary to edema, stasis dermatitis. GENERAL: The patient is awake and follows commands. HEENT: Ocular movements are conjugate. Oral cavity with still quite a few teeth in place with quite a bit of decay. NECK: Supple, no jugular venous distention. LUNGS: With bibasilar inspiratory crackles which are somewhat faint. HEART: S1, S2, regular rate. Soft aortic murmur. ABDOMEN: Slightly distended, not tender. No ascites. No bladder distention, no organomegaly. EXTREMITIES: All the hand wounds have healed properly, much better range of motion. He is able to m ove extremities, but is diffusely weak, but no focal weakness. NEUROLOGIC: His cognitive function is back to baseline. LABORATORY DATA: White cell count 13.3, hemoglobin 12, platelets 284 with 88% neutrophils, now 12.6. Creatinine is at 1.68, which is a bit higher than his baseline of 1.04, ALT 69, AST 33, bilirubin 0 .3, alkaline phosphatase 106, albumin 3.4. Urinalysis was normal. Microbiology with another repeat influenza antigen test positive for influenza A. This is 9 days after the initial positive. He has got sputum with MRSA and yeast, but this is likely a colonization since there is quite a few epitheli al cells in the sample. Two sets of blood cultures thus far negative. ASSESSMENT: 1. Chronic obstructive pulmonary disease. 2. Former smoker. 3. Rheumatoid arthritis, on immunosuppressive regimen. 4. Cardiomyopathy, likely ischemic. 5. Left hand infection with methicillin-susceptible Staphylococcus aureus superimposed on gouty arth ropathy. 6. Influenza A with persistence and respiratory insufficiency with hypercapnic failure. DISCUSSION: Patient has hypercapnic respiratory failure similar to what he had while in the hospital in October. I believe that MRSA in sputum is likely a colonizer rather than a true pathogen, would recommend discontinuation of vancomycin. He has completed his treatment with Rocephin for the hand infection and will discontinue Rocephin at this point in time. Unfortunately, the effectiveness of o seltamivir for influenza A infection in immunocompromised patient is less than optimal. Even in immu nocompetent patient oseltamivir efficacy is debatable and he now is back on oseltamivir and should be continued for duration of hospital stay. Oseltamivir has been associated with neuropsychiatric side effects and the patient should be continued on droplet precautions until his discharge from the hosp ital. The duration of viral excretion in patients who are immunocompromised can be more than 2 weeks sometimes.
--- NOTE | 2017-12-07 19:37 | PDOC.PN ---
- Subjective Encounter Start Date: 12/07/17 Encounter Start Time: 18:30 Patient seen and examined. No new complaints. No overnight events. Cough/SOB improving. No CP/palpitations. - Objective Resuscitation Status: Resuscitation Status FULL:Full Resuscitation MAR Reviewed: Yes Vital Signs & Weight: Vital Signs (12 hours) Temp Pulse Pulse Pulse Pulse Resp BP 12/07/17 18:21 109 H 22 H 12/07/17 16:08 99.0 F 99 22 H 12/07/17 13:29 101 H 108 H 96 134/55 L 12/07/17 12:00 98.1 F 12/07/17 11:48 105 H 145 H 117 H 117/45 L 12/07/17 08:45 12/07/17 08:40 94 23 H 12/07/17 08:00 98.1 F 88 22 H BP BP BP Pulse Ox Pulse Ox Pulse Ox Pulse Ox 12/07/17 18:21 12/07/17 16:08 173/73 H 95 12/07/17 13:29 168/51 H 127/61 100 100 100 12/07/17 12:00 12/07/17 11:48 125/86 100 100 100 12/07/17 08:45 99 12/07/17 08:40 99 12/07/17 08:00 98 Weight Weight 229 lb 4.492 oz Most Recent Monitor Data Heart Rate from ECG 147 NIBP 146/68 NIBP BP-Mean 95 Respiration from ECG 13 SpO2 100 I&O: 12/06/17 12/07/17 12/08/17 06:59 06:59 06:59 Intake Total 700 437 Output Total 750 720 Balance -50 -283 Result Diagrams: 12/08/17 06:00 12/08/17 06:00 EKG Reviewed by me: Yes (Tele SR, Afib earlier) Phys Exam - Physical Examination Mild resp distress Respiratory: wheezing present Bibasilar rales with rhonchi/scat wheezing. Symmetrical. Trachea midline Cardiovascular: RRR, no rub no heaves/pulsations Gastrointestinal: soft, non-tender, no distention, positive bowel sounds Musculoskeletal: no edema Neurological: non-focal, moves all 4 limbs Psychiatric: A&O x 3 Dx/Plan - Plan DVT proph w/lovenox, DVT proph w/SCDs IMPRESSION: 1. Acute hypoxic/hypercapnic respiratory failure on NIPPV 2. ?Pneumonia with COPD exacerbation 3. Afib with RVR - on Lovenox 4. Chronic systolic/diastolic heart failure 5. prison IV atbx for MSSA ?endocarditis & hand infection/ Physical deconditioning/RA on chronic steroid/Obesity BMI 32/Severe AR/NILESH/CAD/HTN/CKD 3 / Recent Influenza A - Tamiflu restarted/Elevated troponins due to demand ischemia PLAN: * Cardio/Pulm/ID following * On Anticoag for Afib per Cardio * On Tamiflu * Ceftriaxone dced per ID * Cont current meds as below Review of Systems - Review of Systems Cardiovascular: negative: chest pain, palpitations, orthopnea, paroxysmal nocturnal dyspnea, edema, light headedness Gastrointestinal: negative: Nausea, Vomiting, Abdominal Pain, Diarrhea, Constipation, Melena, Hematochezia Genitourinary: negative: Dysuria, Frequency, Incontinence, Hematuria, Retention , Other - Medications/Allergies Allergies/Adverse Reactions: Allergies Allergy/AdvReac Type Severity Reaction Status Date / Time morphine Allergy Verified 06/28/17 16:03 Medications: Current Medications Acetaminophen (Tylenol) 650 mg PO Q4H PRN PRN Reason: Headache/Fever or Pain Acetaminophen (Tylenol) 650 mg [place] Q4H PRN PRN Reason: Headache/Fever or Pain Arformoterol Tartrate (Brovana) 15 mcg NEB BID-RT [facility] Last Admin: 12/07/17 18:21 Dose: 15 mcg Aspirin (Aspirin Chewable) 81 mg PO DAILY [facility] Last Admin: 12/07/17 09:54 Dose: 81 mg Bisacodyl (Dulcolax) 10 mg PO DAILYPRN PRN PRN Reason: Constipation Budesonide (Pulmicort Neb Solution) 0.5 mg NEB BID [facility] Last Admin: 12/07/17 18:22 Dose: 0.5 mg Cholecalciferol (Vitamin D3) 1,000 units PO DAILY [facility] Last Admin: 12/07/17 10:30 Dose: 1,000 units Clopidogrel Bisulfate (Plavix) 75 mg PO DAILY [facility] Last Admin: 12/07/17 09:54 Dose: 75 mg Colchicine (Colcrys) 0.6 mg PO ASDIR [facility] Dexamethasone (Decadron) 1.5 mg PO DAILY [facility] Last Admin: 12/07/17 09:54 Dose: 1.5 mg Docusate Sodium (Colace) 100 mg PO BID [facility] Last Admin: 12/07/17 09:54 Dose: 100 mg Enoxaparin Sodium (Lovenox) 100 mg SC 0900,2099 [facility] Famotidine (Pepcid) 20 mg SLOW IVP 2100 [facility] Last Admin: 12/06/17 20:41 Dose: 20 mg Folic Acid (Folvite) 1 mg PO DAILY [facility] Last Admin: 12/07/17 09:53 Dose: 1 mg Furosemide (Lasix) 40 mg PO DAILY-AC [facility] Last Admin: 12/07/17 09:54 Dose: 40 mg Guaifenesin (Mucinex) 600 mg PO TID [facility] Last Admin: 12/07/17 17:58 Dose: 600 mg Hydroxychloroquine Sulfate (Plaquenil) 200 mg PO DAILY [facility] Last Admin: 12/07/17 09:55 Dose: 200 mg Influenza Virus Vaccine (Fluzone High-Dose Syr) 0.5 ml IM .ONCE ONE Stop: 12/08/17 09:01 Methylprednisolone Sodium Succinate (Solu-Medrol) 20 mg IVP Q6HR [facility] Last Admin: 12/07/17 17:58 Dose: 20 mg Miscellaneous Medication (Pharmacy To Dose) 0 each IVPB PRN PRN PRN Reason: [facility] Pharmacy to Dose Ondansetron HCl (Zofran Odt) 4 mg PO Q6H PRN PRN Reason: Nausea/Vomiting Ondansetron HCl (Zofran) 4 mg IVP Q6H PRN PRN Reason: Nausea/Vomiting Pneumococcal 13-Valent Conj Vacc (Prevnar) 0.5 ml IM .ONCE ONE Stop: 12/08/17 09:01
[2017-12-07] MEDS: Enoxaparin Sodium 100 MG/ML SYRINGE SC SCH (21:15)
[2017-12-07] MEDS: Famotidine/PF 20 mg/2ml Vial SLOW IVP SCH (21:15)
[2017-12-08 06:16] LABS: #Lymphocytes 0.6 thou/uL (1.20-3.40); #Monocytes 0.2 thou/uL (0.11-0.59); #Neutrophils 7.8 thou/uL (1.40-6.50); %Eosinophils 0.5 % (0.0-10.0); %Lymphocytes 6.5 % (21.0-51.0); %Monocytes 2.2 % (0.0-10.0); %Neutrophils 90.9 % (42.0-75.0); Mean Corpuscular HGB CONC 31.2 g/dL (32.0-36.0); Mean Corpuscular Hemoglobin 30.3 pg (27.0-31.0); Mean Corpuscular Volume 97.2 fl (80.0-94.0); Mean Platelet Volume 7.2 fL (7.4-10.4); Platelet Count 184 thou/uL (130-400); Red Blood Cell (RBC) Count 2.64 mill/uL (4.70-6.10); White Blood Cell (WBC) Count 8.6 thou/uL (4.8-10.8)
[2017-12-08 06:38] LABS: Anion Gap 13 mmol/L (10-20); BUN (Urea Nitrogen) 82 mg/dL (8.4-25.7); Calc. Creatinine Clearance 91 mL/min (70-130); Calcium 10.4 mg/dL (7.8-10.44); Carbon Dioxide 36 mmol/L (23-31); Chloride 104 mmol/L (98-107); Estimated GFR-MDRD 66; Glucose 157 mg/dL (83-110); Magnesium 2.4 mg/dL (1.6-2.6); Phosphorus 2.9 mg/dL (2.3-4.7); Potassium 4.5 mmol/L (3.5-5.1); Sodium 148 mmol/L (136-145)
[2017-12-08] MEDS: Arformoterol 15 MCG/2 ML NEB NEB SCH ×2 (07:44→22:22)
[2017-12-08] MEDS: Budesonide 0.5 MG/2 ML NEB NEB SCH ×2 (07:47→22:26)
[2017-12-08] MEDS ORDERED: FLU VACC TS2017-18 (>65YR) 0.5 ML SYRINGE IM ONE (09:00)
[2017-12-08] MEDS ORDERED: Prevnar 13-Val Conj/PF 0.5 ML SYRINGE IM ONE (09:00)
[2017-12-08] MEDS: BESIFLOXACIN HCL EA EYE SCH ×2 (09:17→19:31)
[2017-12-08] MEDS: Enoxaparin Sodium 100 MG/ML SYRINGE SC SCH ×2 (10:04→21:02)
[2017-12-08] MEDS: Folic Acid 1 MG TAB PO SCH (10:05)
[2017-12-08] MEDS: Clopidogrel Bisulfate 75 MG TAB PO SCH (10:05)
[2017-12-08] MEDS: Furosemide 40 MG TAB PO SCH (10:05)
[2017-12-08] MEDS: Hydroxychloroquine Sulfate 200 MG TAB PO SCH (10:05)
[2017-12-08] MEDS: guaiFENesin ER 600 MG TAB PO SCH ×3 (10:05→21:01)
[2017-12-08] MEDS: Docusate 100 MG CAP PO SCH ×2 (10:07→21:02)
--- NOTE | 2017-12-08 10:07 | PRG ---
DATE OF SERVICE: 12/08/2017 He looks a little better. He is still coughing and has some congestion. PHYSICAL EXAMINATION: VITAL SIGNS: Temperature is 97.7, pulse 110, respirations 20, O2 sat 99%, blood pressure 140/81. HEENT: Unremarkable. NECK: No JVD. LUNGS: Coarse rhonchi. CARDIOVASCULAR: S1 and S2 regular. ABDOMEN: Soft, nontender. EXTREMITIES: Generalized edema. He also has rheumatoid changes in his hands. LABORATORY DATA: White blood cell count 8.6, hematocrit 25.7, platelet count 184. Sodium 148, potas sium 4.5, chloride 104, CO2 36, BUN 82, creatinine 1.1, glucose 157. ASSESSMENT: 1. Influenza A with pneumonia. 2. Chronic obstructive pulmonary disease. 3. Status post acute respiratory failure. 4. Obstructive sleep apnea. PLAN: 1. Continue BiPAP at night for the obstructive sleep apnea. 2. Continue supportive care for influenza A including the steroids. We could probably move him up t o the medical floor and continue the BiPAP at night.
--- NOTE | 2017-12-08 16:03 | PDOC.PN ---
- Subjective Encounter Start Date: 12/08/17 Encounter Start Time: 15:30 Patient seen and examined. No new complaints. No overnight events. Transferred to medical - Objective Resuscitation Status: Resuscitation Status FULL:Full Resuscitation MAR Reviewed: Yes Vital Signs & Weight: Vital Signs (12 hours) Temp Pulse Pulse Pulse Resp BP BP 12/08/17 13:38 118 H 12/08/17 11:49 99.5 F 128 H 20 12/08/17 08:42 108 H 116 H 157/70 H 171/71 H 12/08/17 08:00 97.7 F 110 H 20 12/08/17 07:47 97.7 F 110 H 20 12/08/17 07:44 101 H 24 H 12/08/17 04:09 98.0 F 104 H 22 H BP Pulse Ox Pulse Ox Pulse Ox 12/08/17 13:38 144/75 H 12/08/17 11:49 183/83 H 97 12/08/17 08:42 90 L 92 L 12/08/17 08:00 99 12/08/17 07:47 148/81 H 99 12/08/17 07:44 98 12/08/17 04:09 162/72 H 92 L Weight Weight 232 lb 7 oz Most Recent Monitor Data Heart Rate from ECG 147 NIBP 146/68 NIBP BP-Mean 95 Respiration from ECG 13 SpO2 100 I&O: 12/07/17 12/08/17 12/09/17 06:59 06:59 06:59 Intake Total 700 857 Output Total 750 2470 Balance -50 -1613 Result Diagrams: 12/09/17 04:30 12/09/17 04:30 EKG Reviewed by me: Yes (SR earlier) Phys Exam - Physical Examination Constitutional: NAD Respiratory: no wheezing, no rhonchi Cardiovascular: RRR, no rub Gastrointestinal: soft, non-tender, positive bowel sounds Musculoskeletal: no edema Neurological: moves all 4 limbs Dx/Plan - Plan DVT proph w/lovenox, DVT proph w/SCDs IMPRESSION: 1. Acute hypoxic/hypercapnic respiratory failure on NIPPV 2. ?Pneumonia with COPD exacerbation 3. Afib with RVR - on Lovenox 4. Chronic systolic/diastolic heart failure 5. half-way IV atbx for MSSA ?endocarditis & hand infection/ Physical deconditioning/RA on immunosuppressants /Obesity BMI 32/Severe AR/NILESH on CPAP/ CAD/HTN/CKD 3/ Recent Influenza A - Tamiflu restarted/Elevated troponins due to demand ischemia/CKD 3/GERD PLAN: * On Anticoag for Afib per Cardio * Ceftriaxone dced per ID * Will dc PICC line at dc * Cont current meds as below * Cardio/Pulm/ID following * Cont CPAP HS * Cont IV Steroids Review of Systems - Medications/Allergies Allergies/Adverse Reactions: Allergies Allergy/AdvReac Type Severity Reaction Status Date / Time morphine Allergy Verified 06/28/17 16:03 Medications: Current Medications Acetaminophen (Tylenol) 650 mg PO Q4H PRN PRN Reason: Headache/Fever or Pain Acetaminophen (Tylenol) 650 mg [place] Q4H PRN PRN Reason: Headache/Fever or Pain Albuterol/Ipratropium (Duoneb) 3 ml NEB [id number] PRN PRN Reason: SOB &/or Wheezing Arformoterol Tartrate (Brovana) 15 mcg NEB BID-RT [facility] Last Admin: 12/08/17 07:44 Dose: 15 mcg Aspirin (Ecotrin) 81 mg PO DAILY [facility] Bisacodyl (Dulcolax) 10 mg PO DAILYPRN PRN PRN Reason: Constipation Budesonide (Pulmicort Neb Solution) 0.5 mg NEB BID [facility] Last Admin: 12/08/17 07:47 Dose: 0.5 mg Cholecalciferol (Vitamin D3) 1,000 units PO DAILY [facility] Last Admin: 12/08/17 10:05 Dose: 1,000 units Clopidogrel Bisulfate (Plavix) 75 mg PO DAILY [facility] Last Admin: 12/08/17 10:05 Dose: 75 mg Docusate Sodium (Colace) 100 mg PO BID [facility] Last Admin: 12/08/17 10:07 Dose: Not Given Enoxaparin Sodium (Lovenox) 100 mg SC 0900,2100 [facility] Last Admin: 12/08/17 10:04 Dose: 100 mg Famotidine (Pepcid) 20 mg PO BID [facility] Folic Acid (Folvite) 1 mg PO DAILY [facility] Last Admin: 12/08/17 10:05 Dose: 1 mg Furosemide (Lasix) 40 mg PO DAILY-AC [facility] Last Admin: 12/08/17 10:05 Dose: 40 mg Guaifenesin (Mucinex) 600 mg PO TID [facility] Last Admin: 12/08/17 10:05 Dose: 600 mg Hydroxychloroquine Sulfate (Plaquenil) 200 mg PO DAILY [facility] Last Admin: 12/08/17 10:05 Dose: 200 mg Methylprednisolone Sodium Succinate (Solu-Medrol) 20 mg IVP Q6HR [facility] Last Admin: 12/08/17 12:59 Dose: 20 mg Miscellaneous Medication (Pharmacy To Dose) 0 each IVPB PRN PRN PRN Reason: [facility] Pharmacy to Dose Ondansetron HCl (Zofran Odt) 4 mg PO Q6H PRN PRN Reason: Nausea/Vomiting Ondansetron HCl (Zofran) 4 mg IVP Q6H PRN PRN Reason: Nausea/Vomiting
--- NOTE | 2017-12-08 17:24 | PDOC.CTH ---
Cardiology Progress Note - Subjective He is doing better today. Breathing is improved. - Objective Vital Signs Temp Pulse Pulse Pulse Resp BP BP 12/08/17 13:38 118 H 12/08/17 11:49 99.5 F 128 H 20 12/08/17 08:42 108 H 116 H 157/70 H 171/71 H 12/08/17 08:00 97.7 F 110 H 20 12/08/17 07:47 97.7 F 110 H 20 12/08/17 07:44 101 H 24 H BP Pulse Ox Pulse Ox Pulse Ox 12/08/17 13:38 144/75 H 12/08/17 11:49 183/83 H 97 12/08/17 08:42 90 L 92 L 12/08/17 08:00 99 12/08/17 07:47 148/81 H 99 12/08/17 07:44 98 Weight 232 lb 7 oz 12/07/17 12/08/17 12/09/17 06:59 06:59 06:59 Intake Total 700 857 Output Total 750 2470 Balance -50 1613 - Physical Examination General/Neuro: NAD Neck: no JVD present Lungs: unlabored respirations, other: (Rhoncus anteriorly. ) Heart: RRR Abdomen: NT/ND Extremities: + edema B (trace) - Telemetry Telemetry Rhythm: Afib HR 70's. - Labs Result Diagrams: 12/08/17 06:00 12/08/17 06:00 Troponin/CKMB CK-MB (CK-2) 0.8 ng/mL (0-6.6) 12/06/17 12:44 Troponin I 0.061 ng/mL (< 0.028) H 12/06/17 19:10 - Assessment/Plan 1. Acute on chronic systolic heart failure 2. Paroxysmal afib 3. Influenza A with pneumonia. 4. Presence of a PPM, MRI safe, 2a to SSS. 5. Severe AI 6. CAD, stable, s/p CABG and PI in the past. 7. COPD PLAN: - Continue full anticoagulation with lovenox for now. Will switch to Eliquis 5 mg BID before discharge. - Continue other meds.
[2017-12-08] MEDS: Famotidine 20 MG TAB PO SCH (21:01)
[2017-12-08] MEDS ORDERED: Budesonide 0.5 MG/2 ML NEB ONE (22:21)
[2017-12-09 05:05] LABS: #Eosinphils 0.1 thou/uL (0.0-0.7); #Lymphocytes 0.5 thou/uL (1.20-3.40); #Monocytes 0.4 thou/uL (0.11-0.59); #Neutrophils 10.2 thou/uL (1.40-6.50); %Eosinophils 0.7 % (0.0-10.0); %Lymphocytes 4.5 % (21.0-51.0); %Neutrophils 90.8 % (42.0-75.0); Hemoglobin 8.9 g/dL (14.0-18.0); Mean Corpuscular HGB CONC 30.9 g/dL (32.0-36.0); Mean Corpuscular Hemoglobin 29.8 pg (27.0-31.0); Mean Corpuscular Volume 96.6 fl (80.0-94.0); Mean Platelet Volume 7.7 fL (7.4-10.4); Platelet Count 164 thou/uL (130-400); Red Blood Cell (RBC) Count 2.99 mill/uL (4.70-6.10); White Blood Cell (WBC) Count 11.2 thou/uL (4.8-10.8)
[2017-12-09 05:23] LABS: Anion Gap 10 mmol/L (10-20); BUN (Urea Nitrogen) 85 mg/dL (8.4-25.7); Calc. Creatinine Clearance 79 mL/min (70-130); Carbon Dioxide 37 mmol/L (23-31); Chloride 104 mmol/L (98-107); Estimated GFR-MDRD 56; Glucose 281 mg/dL (83-110); Potassium 4.6 mmol/L (3.5-5.1); Sodium 146 mmol/L (136-145)
[2017-12-09] MEDS: Clopidogrel Bisulfate 75 MG TAB PO SCH (07:52)
[2017-12-09] MEDS: guaiFENesin ER 600 MG TAB PO SCH ×3 (07:52→20:50)
[2017-12-09] MEDS: Hydroxychloroquine Sulfate 200 MG TAB PO SCH (07:52)
[2017-12-09] MEDS: Docusate 100 MG CAP PO SCH ×2 (07:53→20:50)
[2017-12-09] MEDS: Folic Acid 1 MG TAB PO SCH (07:53)
[2017-12-09] MEDS: Furosemide 40 MG TAB PO SCH (07:53)
[2017-12-09] MEDS: Famotidine 20 MG TAB PO SCH ×2 (07:53→20:50)
[2017-12-09] MEDS: Arformoterol 15 MCG/2 ML NEB NEB SCH ×2 (07:54→21:12)
[2017-12-09] MEDS: Budesonide 0.5 MG/2 ML NEB NEB SCH ×2 (07:56→21:14)
[2017-12-09] MEDS ORDERED: Aspirin 81 mg Enteric Coated Tablet PO SCH (09:00)
[2017-12-09] MEDS ORDERED: Dexamethasone 1 MG TAB PO SCH ×2 (09:00→17:00)
--- NOTE | 2017-12-09 09:15 | PRG ---
DATE OF SERVICE: 12/09/2017 The patient is doing better, had no acute complaints. PHYSICAL EXAMINATION: VITAL SIGNS: Temperature 97.8, pulse 105 to 123, O2 sat 100% on 2 liters, respiratory rate 20. HEENT: Unremarkable. NECK: No JVD. CHEST: Clear without wheezing. CARDIAC: S1 and S2 regular. ABDOMEN: Soft. EXTREMITIES: No edema. LABORATORY DATA: White blood cell count 11.2, hematocrit 28.9, platelet count 164. Sodium 146, pota ssium 4.6, chloride 104, CO2 37, BUN 85, creatinine 1.2, glucose 281. ASSESSMENT: 1. Improved respiratory status. 2. Influenza A with pneumonia. 3. Obstructive sleep apnea. 4. Status post acute respiratory failure. PLAN: The patient has improved significantly. I think he can probably be discharged or sent to [facility]. He is a little concerned about his ability to ambulate.
[2017-12-09] MEDS: Enoxaparin Sodium 100 MG/ML SYRINGE SC SCH (11:55)
[2017-12-09 12:52] LABS: Troponin I 0.073 ng/mL (< 0.028)
--- NOTE | 2017-12-09 12:52 | RAD ---
PORTABLE CHEST: History: Shortness of breath Comparison: 12-07-17 FINDINGS: Heart is mildly enlarged. Post op sternotomy change. Pacemaker leads are unchanged. Lungs are clear. No infiltrate or vascular congestion is seen. IMPRESSION: No acute process. POS: H
--- NOTE | 2017-12-09 14:42 | PDOC.PN ---
- Subjective Encounter Start Date: 12/09/17 Encounter Start Time: 14:00 Patient seen and examined. SOB improving. Pain behind left knee. No overnight events - Objective Resuscitation Status: Resuscitation Status FULL:Full Resuscitation MAR Reviewed: Yes Vital Signs & Weight: Vital Signs (12 hours) Temp Pulse Pulse Pulse Resp BP BP 12/09/17 12:00 116 H 12/09/17 11:05 118 H 118 H 172/71 H 139/79 12/09/17 08:00 97.8 F 108 H 24 H 12/09/17 07:54 123 H 20 12/09/17 05:02 105 H 12/09/17 04:50 12/09/17 04:00 97.8 F 105 H 20 BP Pulse Ox 12/09/17 12:00 141/76 H 100 12/09/17 11:05 12/09/17 08:00 122/49 L 98 12/09/17 07:54 100 12/09/17 05:02 12/09/17 04:50 96 12/09/17 04:00 147/63 H 100 Weight Weight 233 lb 3.2 oz Most Recent Monitor Data Heart Rate from ECG 147 NIBP 146/68 NIBP BP-Mean 95 Respiration from ECG 13 SpO2 100 I&O: 12/08/17 12/09/17 12/10/17 06:59 06:59 06:59 Intake Total 857 250 240 Output Total 2470 2250 Balance -1613 -1999 240 Result Diagrams: 12/09/17 04:30 12/09/17 04:30 EKG Reviewed by me: Yes (Afib with RVR - HR 115-120) Phys Exam - Physical Examination Constitutional: NAD Respiratory: no wheezing, no rhonchi Cardiovascular: RRR, no rub Gastrointestinal: soft, positive bowel sounds Musculoskeletal: no edema tenderness behind left knee Neurological: moves all 4 limbs Psychiatric: A&O x 3 Dx/Plan - Plan IMPRESSION: 1. Acute hypoxic/hypercapnic respiratory failure s/p NIPPV 2. ?Pneumonia with COPD exacerbation - improving 3. Afib with RVR - on Lovenox 4. Chronic systolic/diastolic heart failure 5. s/p buttermaker helper IV atbx for MSSA ?endocarditis & hand infection/ Physical deconditioning/RA on immunosuppressants /Obesity BMI 32/Severe AR/NILESH on CPAP/ CAD/HTN/CKD 3/ Recent Influenza A - Tamiflu restarted/Elevated troponins due to demand ischemia/CKD 3/GERD PLAN: * On Anticoag for Afib per Cardio * Notified Cardiology of Afib with RVR today - EKG done earlier today * Ceftriaxone dced per ID - Will dc PICC line at dc * DC cunningham in AM * USG of soft tissue behind left knee * Cont current meds as below * Cardio/Pulm/ID following * Cont CPAP HS * Cont PO Steroids per pulmonary * DC planning Review of Systems - Review of Systems Cardiovascular: negative: chest pain, palpitations, orthopnea, paroxysmal nocturnal dyspnea, edema, light headedness Gastrointestinal: negative: Nausea, Vomiting, Abdominal Pain, Diarrhea, Constipation, Melena, Hematochezia - Medications/Allergies Allergies/Adverse Reactions: Allergies Allergy/AdvReac Type Severity Reaction Status Date / Time morphine Allergy Verified 06/28/17 16:03 Medications: Current Medications Acetaminophen (Tylenol) 650 mg PO Q4H PRN PRN Reason: Headache/Fever or Pain Last Admin: 12/09/17 07:51 Dose: 650 mg Acetaminophen (Tylenol) 650 mg [place] Q4H PRN PRN Reason: Headache/Fever or Pain Albuterol/Ipratropium (Duoneb) 3 ml NEB [id number] PRN PRN Reason: SOB &/or Wheezing Arformoterol Tartrate (Brovana) 15 mcg NEB BID-RT [facility] Last Admin: 12/09/17 07:54 Dose: 15 mcg Aspirin (Ecotrin) 81 mg PO DAILY [facility] Last Admin: 12/09/17 07:53 Dose: 81 mg Bisacodyl (Dulcolax) 10 mg PO DAILYPRN PRN PRN Reason: Constipation Budesonide (Pulmicort Neb Solution) 0.5 mg NEB BID [facility] Last Admin: 12/09/17 07:56 Dose: 0.5 mg Cholecalciferol (Vitamin D3) 1,000 units PO DAILY [facility] Last Admin: 12/09/17 07:52 Dose: 1,000 units Clopidogrel Bisulfate (Plavix) 75 mg PO DAILY [facility] Last Admin: 12/09/17 07:52 Dose: 75 mg Dexamethasone (Decadron) 2 mg PO BID-[facility] Docusate Sodium (Colace) 100 mg PO BID [facility] Last Admin: 12/09/17 07:53 Dose: 100 mg Enoxaparin Sodium (Lovenox) 100 mg SC 0900,2100 [facility] Last Admin: 12/09/17 11:55 Dose: 100 mg Famotidine (Pepcid) 20 mg PO BID [facility] Last Admin: 12/09/17 07:53 Dose: 20 mg Folic Acid (Folvite) 1 mg PO DAILY [facility] Last Admin: 12/09/17 07:53 Dose: 1 mg Furosemide (Lasix) 40 mg PO DAILY-AC [facility] Last Admin: 12/09/17 07:53 Dose: 40 mg Guaifenesin (Mucinex) 600 mg PO TID [facility] Last Admin: 12/09/17 07:52 Dose: 600 mg Hydroxychloroquine Sulfate (Plaquenil) 200 mg PO DAILY [facility] Last Admin: 12/09/17 07:52 Dose: 200 mg Miscellaneous Medication (Pharmacy To Dose) 0 each IVPB PRN PRN PRN Reason: [facility] Pharmacy to Dose Ondansetron HCl (Zofran Odt) 4 mg PO Q6H PRN PRN Reason: Nausea/Vomiting Ondansetron HCl (Zofran) 4 mg IVP Q6H PRN PRN Reason: Nausea/Vomiting Oseltamivir Phosphate (Tamiflu) 75 mg PO BID [facility] Stop: 12/14/17 09:01
[2017-12-09] MEDS ORDERED: Oseltamivir 75 MG CAP PO SCH ×2 (15:00→21:00)
--- NOTE | 2017-12-09 15:24 | ULT ---
LEFT LEG SOFT TISSUE SONOGRAM: History: Left leg mass. Multiple previous muscular hematoma. FINDINGS: Sonographic evaluation of the lateral aspect of the left mid leg was performed. A bilobed well circum scribed heterogeneous fluid collection contains heterogeneous internal fluid. The larger superior lob e is 7.5 x 6.3 cm greatest diameters. The more inferior lobe is 5.1 x 2.2 cm greatest diameters. Move ment within the neck is likely related to fluid moving between the two lobes. IMPRESSION: Bilobed heterogeneous hematoma within the subcutaneous tissues of the lateral aspect of the left mid leg. POS: [facility]
[2017-12-09 16:21] LABS: Troponin I 0.076 ng/mL (< 0.028)
--- NOTE | 2017-12-09 19:18 | PDOC.EVN ---
Event Note - Event Note Event Note: Received a call from Dr Simmons. Patient having frequent chest pain with Afib with intermittent RVR. Dr Simmons recommended transfer IMCU for close monitoring.
--- NOTE | 2017-12-09 19:22 | PDOC.CTH ---
Cardiology Progress Note - Subjective He is more confused today and c/o chest pian, He shurst when he moves around when he tries to pull himself on the rails with his arms. He also hurts when you press on his chest. - Objective Vital Signs Temp Pulse Pulse Pulse Resp BP BP 12/09/17 12:00 116 H 12/09/17 11:05 118 H 118 H 172/71 H 139/79 12/09/17 08:00 97.8 F 108 H 24 H 12/09/17 07:54 123 H 20 BP Pulse Ox 12/09/17 12:00 141/76 H 100 12/09/17 11:05 12/09/17 08:00 122/49 L 98 12/09/17 07:54 100 Weight 233 lb 3.2 oz 12/08/17 12/09/17 12/10/17 06:59 06:59 06:59 Intake Total 857 250 240 Output Total 2470 2250 Balance -1613 -1999 240 - Physical Examination General/Neuro: other: (Somnolent but easily arousable. ) Neck: no JVD present Lungs: other: (rhonchi bilat. ) Heart: other: (Irregluar) Abdomen: NT/ND Extremities: + edema B (Trace, hematoma on posterior left thigh.) - Labs Result Diagrams: 12/09/17 04:30 12/09/17 04:30 Troponin/CKMB CK-MB (CK-2) 0.8 ng/mL (0-6.6) 12/06/17 12:44 Troponin I 0.076 ng/mL (< 0.028) H 12/09/17 15:46 - Assessment/Plan 1. Acute on chronic systolic heart failure 2. Paroxysmal afib 3. Influenza A with pneumonia. 4. Presence of a PPM, MRI safe, 2a to SSS. 5. Severe AI 6. CAD, stable, s/p CABG and PI in the past. 7. COPD 8. AMS. 9. Chest pain, likely chest wall. 10. Left leg hematoma. PLAN: - Stop lovenox and aspirin continue plavix only. - Transfer back to [facility] due to worsening mentation and afib RVR - One more set of troponins. - I spoke with his about him getting worse and this possibly being the beginning of the end. He has been in and out of the hospital for the last month or two and it has always been a different thing every time. Currently will continue to push aggressively. - If he remains in RVR with HR>110 will start rate control with dilt drip as long as BP allows.
[2017-12-09 19:33] LABS: Troponin I 0.095 ng/mL (< 0.028)
--- NOTE | 2017-12-09 19:58 | EKG ---
Test Reason : Blood Pressure : / mmHG Vent. Rate : 117 BPM Atrial Rate : 110 BPM P-R Int : 000 ms QRS Dur : 090 ms QT Int : 328 ms P-R-T Axes : 000 -03 131 degrees QTc Int : 457 ms Atrial fibrillation with rapid ventricular response with premature ventricular or aberrantly conducte d complexes Moderate voltage criteria for LVH, may be normal variant Abnormal ECG When compared with ECG of 06-DEC-2017 12:21, (Unconfirmed) Atrial fibrillation has replaced Sinus rhythm Questionable change in QRS duration Confirmed by LEIGH OROURKE, . SCecile (4) on 12/09/2017 7:57:42 PM Referred By: JAMES Confirmed By:DR. Roel ABRAHAM MD
[2017-12-09] MEDS ORDERED: Amiodarone HCl 450 MG, Admixture Fee 1 EACH in Dextrose 5% in Water 250 ML IVPB SCH ×3 (20:15)
[2017-12-09] MEDS ORDERED: Atropine Sulfate 1 mg/10 ml Syringe ONE (23:00)
[2017-12-09] MEDS ORDERED: EPINEPHrine 1 MG/10 ML Abboject SYRINGE ONE (23:00)
[2017-12-09] MEDS ORDERED: Sodium Bicarb 50 MEQ/50 ML Abboject 8.4% SYRINGE ONE (23:00)
[2017-12-10 00:05] VITALS: BP 87/44; TEMP 97.9
--- NOTE | 2017-12-10 00:16 | PDOC.EVN ---
Event Note - Event Note Event Note: pt blood pressure slowly coming down. sbp is in 80's. will transfer to ccu. levophed as needed.
[2017-12-10 00:17] LABS: Actual Bicarbonate (HCO3a) 19.5 mEq/L (22-26); Base Excess (BEa) -5.4 mEq/L (0 (+/-) 2.5); Hematocrit-ABG 24.8 % (42.0-52.0); Hemoglobin (Hb) 7.2 g/dL (14.0-18.0); O2 Tension (PaO2) 84.3 mmHg (80.0-100.0); pH, Arterial 7.36 (7.35-7.45)
[2017-12-10 00:18] LABS: Calcium, Ionized 1.2 mmol/L (1.12-1.30); Puncture Site LBR
--- NOTE | 2017-12-10 01:11 | PDOC.EVN ---
Event Note - Event Note Event Note: Called for annel sánchez. Compression and BVM in progress when I arrived. ETT placed without difficulty. Compressions continued for ~ 20 minutes. Pulse checks negative at each exam with PEA on monitor and no significant CM on ultrasound. Several rounds of epi and bicarb given. Spoke with who is on her way. No ROSC obtained. Pupils fixed, no respirations, no heart sounds, no pulse for 1 minute. For specific details see code documentation.
[2017-12-10 01:13] LABS: Anion Gap 28 mmol/L (10-20); BUN (Urea Nitrogen) 93 mg/dL (8.4-25.7); Calc. Creatinine Clearance 47 mL/min (70-130); Calcium 9.7 mg/dL (7.8-10.44); Carbon Dioxide 19 mmol/L (23-31); Chloride 99 mmol/L (98-107); Estimated GFR-MDRD 31; Glucose 197 mg/dL (83-110); Potassium 6.8 mmol/L (3.5-5.1); Sodium 139 mmol/L (136-145)
--- NOTE | 2017-12-10 01:46 | PDOC.EVN ---
Event Note - Event Note Event Note: Called for code blue. Cpr was initiated. er physician intubated pt. Compressions continued for ~ 20 minutes. Pulse checks negative at each exam with PEA on monitor and no significant CM on ultrasound. Several rounds of epi and bicarb given. No ROSC obtained. Pupils fixed, no respirations, no heart sounds, no pulse for 1 minute. time of 00.46. family was notified.
--- NOTE | 2017-12-10 03:46 | PDOC.EVN ---
Event Note - Event Note Event Note: please send d/c summary to dr piña.
--- NOTE | 2017-12-10 10:11 | DS ---
DATE OF ADMISSION: 12/06/2017 DATE : 12/10/2017 at 0046. BRIEF HOSPITAL COURSE: The patient was a 72-year-old male with obstructive sleep apnea, COPD, chroni c systolic and diastolic heart failure who presented to the hospital on 12/06/2017 with lethargy and respiratory distress. He was discharged from this facility on 11/30/2017 to longterm facility for similar complaints. His workup was consistent with acute hypoxic and hypercapnic respiratory fa ilure. His blood gases on admission was 7.26 pH with pCO2 89.3, bicarbonate of 39.2 with O2 saturati on of 96% on 05/05 noninvasive positive pressure ventilation. He was monitored in the Intermediate Ca re Unit. He showed improvement with noninvasive positive pressure ventilation. He was on ceftriaxon e prior to admission due to suspected endocarditis with hand infection per Dr. Coleman. He was also pl aced on IV steroids. Overall, he showed improvement. He was transferred to the medical floor. Prio r to transfer to medical floor he was also started on anticoagulation for atrial fibrillation. He wa s seen by multiple consultants including Cardiology, Dr. Simmons, Pulmonary, Dr. Marquis, as well as I nfectious Disease, Dr. Coleman. Dr. Coleman advised discontinuation of ceftriaxone which was done. Yest erd evening due to atrial fibrillation as well as the recurrent chest pain he was transferred to In termediate Care Unit for close monitoring. A annel sánchez was called at 0024 a.m. He received CPR as w ell as medications per ACLS protocol. The patient at 0046. Family was notified. FINAL DIAGNOSES: 1. Acute hypoxic/hypercapnic respiratory failure status post noninvasive positive pressure ventilati on. 2. Status post code blue cardiopulmonary arrest. His potassium during the code was 6.8. His potass ium yesterday morning was 4.6. 3. Acute kidney injury on chronic kidney disease stage 2 during the cardiopulmonary arrest. 4. Elevated troponins, probably secondary to demand ischemia. 5. Chronic systolic/diastolic heart failure. 6. Atrial fibrillation with a rapid ventricular response. 7. Left leg hematoma diagnosed yesterday. 8. Severe aortic regurgitation. 9. Obstructive sleep apnea on CPAP. 10. Coronary artery disease. 11. Hypertension. 12. Recent influenza A. 13. Gastroesophageal reflux disease. 14. Physical deconditioning. 15. Rheumatoid arthritis on immunosuppressants. 16. Suspected pneumonia with chronic obstructive pulmonary disease exacerbation this admission. 17. Obesity with a BMI of 32.5.
--- NOTE | 2017-12-18 20:00 | EKG ---
Test Reason : Blood Pressure : / mmHG Vent. Rate : 096 BPM Atrial Rate : 096 BPM P-R Int : 174 ms QRS Dur : 150 ms QT Int : 408 ms P-R-T Axes : 000 084 -88 degrees QTc Int : 515 ms Normal sinus rhythm Left ventricular hypertrophy with QRS widening and repolarization abnormality Abnormal ECG Confirmed by RENE OROURKE, ESTHER Farley ([id number]), graphic editor CHOLO EDDY ([id number]) on 12/18/2017 8:00:09 PM Referred By: Confirmed By:ESTHER LÓPEZ MD
== END 2017-12-10 00:46 | disposition expired | DRG 189 ==
LOC: ERS 12:11 → CCU 18:36 → IMCU/EMU 12-07 15:54 → T4-B 12-08 15:12 → IMCU/EMU 12-09 19:43
PROVIDERS: ADMIT Emergency Medicine; ATTEND Emergency Medicine
PROC: 5A09357 Assistance with Respiratory Ventilation, Less than 24 Consecutive Hours, Continuous Positive Airway Pressure (ICD-10-PCS; 2017-12-06)
PROC: 5A12012 Performance of Cardiac Output, Single, Manual (ICD-10-PCS; principal; 2017-12-10)
DX: J96.22 Acute and chronic respiratory failure with hypercapnia (principal); I46.9 Cardiac arrest, cause unspecified; J10.00 Influenza due to other identified influenza virus with unspecified type of pneumonia; N17.9 Acute kidney failure, unspecified; J18.9 Pneumonia, unspecified organism; G93.40 Encephalopathy, unspecified; I13.0 Hypertensive heart and chronic kidney disease with heart failure and stage 1 through stage 4 chronic kidney disease, or unspecified chronic kidney disease; E87.5 Hyperkalemia; I50.42 Chronic combined systolic (congestive) and diastolic (congestive) heart failure; I24.8 Other forms of acute ischemic heart disease; J44.0 Chronic obstructive pulmonary disease with (acute) lower respiratory infection; J44.1 Chronic obstructive pulmonary disease with (acute) exacerbation; B37.2 Candidiasis of skin and nail; B95.62 Methicillin resistant Staphylococcus aureus infection as the cause of diseases classified elsewhere; I35.1 Nonrheumatic aortic (valve) insufficiency; G47.33 Obstructive sleep apnea (adult) (pediatric); N18.3 Chronic kidney disease, stage 3 (moderate); M06.9 Rheumatoid arthritis, unspecified; E66.9 Obesity, unspecified; Z68.32 Body mass index [BMI] 32.0-32.9, adult; I25.10 Atherosclerotic heart disease of native coronary artery without angina pectoris; M10.9 Gout, unspecified; Z95.1 Presence of aortocoronary bypass graft; Z95.5 Presence of coronary angioplasty implant and graft; Z96.653 Presence of artificial knee joint, bilateral; Z95.0 Presence of cardiac pacemaker; Z88.5 Allergy status to narcotic agent; Z79.01 Long term (current) use of anticoagulants; Z79.82 Long term (current) use of aspirin; Z79.52 Long term (current) use of systemic steroids; J96.01 Acute respiratory failure with hypoxia; K21.9 Gastro-esophageal reflux disease without esophagitis; Z79.899 Other long term (current) drug therapy; Z87.891 Personal history of nicotine dependence; I25.5 Ischemic cardiomyopathy; I48.0 Paroxysmal atrial fibrillation; R07.9 Chest pain, unspecified; S80.12XA Contusion of left lower leg, initial encounter
CPT/HCPCS: 36415; 36416; 51701; 70450; 71045; 76999; 80048; 81003; 82553; 82805; 83605; 83735; 83880; 84100; 84484; 85025; 87040; 90471; 90682; 93005; 93010; 94640; 94660; 94760; 96365; G0008; G8978-GP-CL; G8979-GP-CK; G8987-GO-CM; G8988-GO-CK; J0171; J0282; J0461; J0696; J1650; J2543; J2920; J3370; J7050; J7070; J7620; J7626; J8540; Q2036; S0028